=== PATIENT | female | born 1950 | race American Indian/Alaskan Native ===

== ENCOUNTER 2017-01-25 14:35 | Emergency (ER) | payer SELFPAY ==
[~2017-01-25] VITALS: Ht 167.6 cm; Wt 81.6 kg
[2017-01-25 16:37] VITALS: BP 150/81
[2017-01-25] MEDS ORDERED: HYDROmorphone HCL 2 MG/ML VL IV ONE (17:00)
[2017-01-25] MEDS ORDERED: ONDANSETRON HCL 4 MG/2 ML VIAL IV ONE (17:00)
[2017-01-25] MEDS ORDERED: SODIUM CHLORIDE 0.9% 1,000 ML IV ONE (17:00)
[2017-01-25 17:42] LABS: Basophils # (auto) 0 uL; Basophils % (auto) 0.5 % (0.0-2.0); Eosinophils # (auto) 0 uL; Eosinophils % (auto) 0.4 % (0.0-7.0); Hemoglobin 14.3 g/dL (12.2-16.2); Lymphocytes # (auto) 1.1 uL; Lymphocytes % (auto) 13.1 % (10.0-50.0); Mean Corpuscular Hgb Conc. 33.3 g/dL (32.0-36.0); Mean Corpuscular Volume 87.2 fL (80.0-100.0); Mean Platelet Volume 9.3 fL (7.4-10.4); Monocytes # (auto) 0.2 uL; Neutrophils # (auto) 6.9 uL; Platelet Count (auto) 227 10^3/uL (140-450); Red Cell Distribution Width 14.8 % (11.6-16.0); White Blood Cell 8.4 10^3/uL (4.4-10.8)
[2017-01-25 17:53] LABS: BUN/Creatinine Ratio 15.8; Potassium 3.8 mmol/L (3.5-5.1)
[2017-01-25 17:56] LABS: Bilirubin, Total 0.5 mg/dL (0.2-1.0); Total Protein 7.5 g/dL (6.4-8.2)
[2017-01-25 17:57] LABS: INR 0.98 (0.9-1.15); Prothrombin Time 10.6 sec (9.37-12.3)
[2017-01-25] MEDS ORDERED: ONDANSETRON ODT 4 MG TAB PO ONE (19:30)
== END 2017-01-25 19:56 | disposition home or self-care (01) ==
LOC: ER 14:35
DX: S42.211A Unspecified displaced fracture of surgical neck of right humerus, initial encounter for closed fracture (principal); Z88.6 Allergy status to analgesic agent; Z88.1 Allergy status to other antibiotic agents; W01.0XXA Fall on same level from slipping, tripping and stumbling without subsequent striking against object, initial encounter; Y93.89 Activity, other specified; Y99.8 Other external cause status; Y92.098 Other place in other non-institutional residence as the place of occurrence of the external cause
CPT/HCPCS: 36415; 73030; 80053; 85025; 85610; 85730; 96361; 96374; 96375; 99291; J1170; J2405; J7030; Q0162

== ENCOUNTER 2018-08-05 10:14 | Emergency (ER) | payer OTHER ==
[~2018-08-05] VITALS: Ht 167.6 cm; Wt 78.0 kg
[2018-08-05 10:27] VITALS: BP 146/81
[2018-08-05] MEDS ORDERED: KETOROLAC TROMETH 60MG/2ML VIAL IM ONE (12:30)
[2018-08-05] MEDS ORDERED: HYDROcodone-ACET 5/325MG TAB PO ONE (12:45)
[2018-08-05] MEDS ORDERED: traMADol HCL 50 MG TAB PO ONE (13:00)
== END 2018-08-05 13:34 | disposition home or self-care (01) ==
LOC: ER 10:14
DX: M79.652 Pain in left thigh (principal); M13.862 Other specified arthritis, left knee; Z88.6 Allergy status to analgesic agent; Z88.8 Allergy status to other drugs, medicaments and biological substances; Z90.710 Acquired absence of both cervix and uterus
CPT/HCPCS: 73552; 99284; J1885

== ENCOUNTER 2021-08-04 23:44 | Inpatient (IN) | payer OTHER ==
[~2021-08-04] VITALS: Ht 167.6 cm; Wt 105.3 kg
[2021-08-05] VITALS (7 sets, daily range): BP systolic 114–173; BP diastolic 59–90
[2021-08-05 01:37] LABS: Basophils # (auto) 0.1 10 ^3/uL (0-0.2); Basophils % (auto) 1.6 % (0.0-2.0); Eosinophils # (auto) 0.1 10 ^3/uL (0-0.8); Hemoglobin 15.1 g/dL (12.2-16.2); Lymphocytes # (auto) 0.9 10 ^3/uL (0.4-5.4); Lymphocytes % (auto) 12.3 % (10.0-50.0); Mean Corpuscular Hemoglobin 30.3 pg (28.0-32.0); Mean Corpuscular Hgb Conc. 34.2 g/dL (32.0-36.0); Mean Corpuscular Volume 88.7 fL (80.0-100.0); Monocytes # (auto) 0.4 10 ^3/uL (0-1.3); Monocytes % (auto) 4.9 % (0.0-12.0); Neutrophils # (auto) 6.1 10 ^3/uL (1.6-8.6); Neutrophils % (auto) 80.2 % (37.0-80.0); Nucleated Red Blood Cells % 0.2 %; Red Blood Cells 4.97 10^6/uL (4.0-5.20); Red Cell Distribution Width 14.9 % (11.8-14.3); White Blood Cell 7.6 10^3/uL (4.4-10.8)
[2021-08-05 01:57] LABS: Albumin 3.4 g/dL (3.4-5.0); BUN/Creatinine Ratio 19.2; Calcium 8.8 mg/dL (8.5-10.1); Potassium 4.3 mmol/L (3.5-5.1)
[2021-08-05 02:13] LABS: Bilirubin, Total 0.3 mg/dL (0.2-1.0); Total Protein 7.1 g/dL (6.4-8.2)
[2021-08-05] MEDS ORDERED: ASPirin 81 mg TAB PO ONE (04:00)
[2021-08-05] MEDS ORDERED: ENOXAPARIN SOD 80 MG/0.8ML SYRINGE SC ONE (04:30)
[2021-08-05] MEDS ORDERED: MORPHINE SULFATE INJECTION 2 MG/ML SYRG IV PRN ×2 (07:00→18:15)
[2021-08-05] MEDS ORDERED: ONDANSETRON HCL 4 MG/2 ML VIAL IV PRN (07:00)
[2021-08-05] MEDS ORDERED: NITROGLYCERIN 0.4 MG SL TAB SL PRN (07:00)
[2021-08-05] MEDS: SODIUM CHLORIDE 0.9% 1,000 ML IV SCH ×2 (09:33→23:39)
[2021-08-05] MEDS ORDERED: ENOXAPARIN SOD 40 MG/0.4 ML SYRINGE SC SCH (10:00)
[2021-08-05] MEDS: PANTOPRAZOLE 40 MG/10 ML VIAL INJ IV SCH (10:03)
[2021-08-05] MEDS ORDERED: ANGIOMAX 250 MG VIAL IV ONE ×2 (13:14→14:27)
[2021-08-05] MEDS ORDERED: VERAPAMIL 2.5MG/ML INJ 2ML VIAL IV ONE (13:15)
[2021-08-05] MEDS ORDERED: SODIUM CHL 0.9% 50 ML ONE ×2 (13:15→14:27)
[2021-08-05] MEDS ORDERED: fentaNYL CITRATE 100 MCG/2 ML VL ONE (13:15)
[2021-08-05] MEDS ORDERED: MIDAZOLAM HCL 2MG/2ML 2ml VIAL (1mg/ml) ONE (13:15)
[2021-08-05] MEDS ORDERED: LIDOCAINE 2%HCL (LOCAL ANESTH.) INJ 20ML MDV ONE (13:16)
[2021-08-05] MEDS ORDERED: IODIXANOL 320MG/ML 100ML BTL IV ONE ×3 (13:16→14:38)
[2021-08-05] MEDS ORDERED: diphenhdrAMINE HCL 50 MG/1 ML VL ONE (13:49)
[2021-08-05] MEDS ORDERED: ASPirin 325 MG TAB ONE (14:06)
[2021-08-05] MEDS ORDERED: TICAGRELOR 90 MG TAB ONE (14:06)
[2021-08-05] MEDS ORDERED: ONDANSETRON HCL 4 MG/2 ML VIAL ONE (14:13)
[2021-08-05] MEDS ORDERED: niCARdipine 25 MG/10 ML VIAL IV ONE (14:17)
[2021-08-05] MEDS ORDERED: HYDROmorphone HCL 2 MG/ML VL ONE (14:31)
[2021-08-05] MEDS ORDERED: SODIUM CHLORIDE 0.9% 250 ML IV ONE (15:00)
[2021-08-05 18:09] LABS: INR 1.28 (0.9-1.15)
[2021-08-05] MEDS ORDERED: ACETAMINOPHEN 325 MG TAB PO PRN (18:15)
[2021-08-05] MEDS ORDERED: ATORVASTATIN 20 MG TAB PO SCH ×2 (22:00)
[2021-08-05] MEDS: TICAGRELOR 90 MG TAB PO SCH (22:14)
[2021-08-05] MEDS: LORazepam 2MG/ML-1ML VIAL IV PRN (22:15)
[2021-08-05] MEDS: CARVEDILOL 3.125 MG TAB PO SCH (22:32)
[2021-08-05] MEDS: ENALAPRIL MALEATE 10 MG TAB PO SCH (22:32)
[2021-08-05 23:02] LABS: Urine Bacteria NONE SEEN /hpf (None Seen); Urine Blood TRACE /uL (Negative); Urine Mucus FEW (None Seen); Urine WBC 1 /hpf (0 - 5)
[2021-08-05 23:08] LABS: Urine Specific Gravity > 1.050 (1.001-1.035)
[2021-08-06 05:02] VITALS: BP 98/44
[2021-08-06] MEDS: LORazepam 2MG/ML-1ML VIAL IV PRN (05:48)
[2021-08-06 05:59] LABS: Basophils # (auto) 0.1 10 ^3/uL (0-0.2); Basophils % (auto) 1.2 % (0.0-2.0); Eosinophils # (auto) 0.1 10 ^3/uL (0-0.8); Eosinophils % (auto) 2.4 % (0.0-7.0); Hematocrit 37.7 % (36.0-46.0); Hemoglobin 12.8 g/dL (12.2-16.2); Lymphocytes # (auto) 1.4 10 ^3/uL (0.4-5.4); Lymphocytes % (auto) 29.1 % (10.0-50.0); Mean Corpuscular Hemoglobin 29.9 pg (28.0-32.0); Mean Corpuscular Hgb Conc. 33.9 g/dL (32.0-36.0); Mean Corpuscular Volume 88.3 fL (80.0-100.0); Monocytes # (auto) 0.4 10 ^3/uL (0-1.3); Monocytes % (auto) 8.3 % (0.0-12.0); Neutrophils # (auto) 2.9 10 ^3/uL (1.6-8.6); Red Blood Cells 4.27 10^6/uL (4.0-5.20); Red Cell Distribution Width 14.9 % (11.8-14.3); White Blood Cell 4.9 10^3/uL (4.4-10.8)
[2021-08-06 06:23] LABS: BUN/Creatinine Ratio 21.1; Calcium 8.5 mg/dL (8.5-10.1); Potassium 4.2 mmol/L (3.5-5.1)
[2021-08-06] MEDS: PANTOPRAZOLE 40 MG/10 ML VIAL INJ IV SCH (09:29)
[2021-08-06] MEDS: TICAGRELOR 90 MG TAB PO SCH (09:30)
[2021-08-06] MEDS: CARVEDILOL 3.125 MG TAB PO SCH (09:30)
[2021-08-06] MEDS: ENALAPRIL MALEATE 10 MG TAB PO SCH (09:31)
[2021-08-06] MEDS ORDERED: ASPirin 81 mg TAB PO SCH (10:00)
[2021-08-06 13:00] VITALS: BP 119/63
[2021-08-06 17:00] VITALS: BP 140/70
== END 2021-08-06 17:45 | disposition home health service (06) | DRG 247 ==
LOC: ER 23:44 → EDBD 23:44 → EDUNIT# 23:44 → TELE 08-05 06:55 → TELE-WESTW 08-05 11:42
PROVIDERS: ADMIT Nurse Practitioner; ATTEND Internal Medicine
PROC: 4A023N7 Measurement of Cardiac Sampling and Pressure, Left Heart, Percutaneous Approach (ICD-10-PCS; principal; 2021-08-05)
PROC: 027036Z Dilation of Coronary Artery, One Artery with Three Drug-eluting Intraluminal Devices, Percutaneous Approach (ICD-10-PCS; 2021-08-05)
PROC: B211YZZ Fluoroscopy of Multiple Coronary Arteries using Other Contrast (ICD-10-PCS; 2021-08-05)
PROC: 3E073GC Introduction of Other Therapeutic Substance into Coronary Artery, Percutaneous Approach (ICD-10-PCS; 2021-08-05)
DX: I21.4 Non-ST elevation (NSTEMI) myocardial infarction (principal); E66.01 Morbid (severe) obesity due to excess calories; I25.110 Atherosclerotic heart disease of native coronary artery with unstable angina pectoris; R00.1 Bradycardia, unspecified; Z20.822 Contact with and (suspected) exposure to COVID-19; Z68.37 Body mass index [BMI] 37.0-37.9, adult; Z72.0 Tobacco use; Z90.710 Acquired absence of both cervix and uterus; Z88.5 Allergy status to narcotic agent; Z82.49 Family history of ischemic heart disease and other diseases of the circulatory system
CPT/HCPCS: 36415; 71045; 71046; 80048; 80053; 81001; 83880; 84484; 85025; 85610; 87426; 92928; 93005; 93306; 93458; 96361; 96372; 96374; C9113; G0378; J2250; J2405; Q9967

== ENCOUNTER 2022-01-30 16:20 | Observation (INO) | payer OTHER ==
[~2022-01-30] VITALS: Ht 167.6 cm; Wt 91.2 kg
[2022-01-30] MEDS ORDERED: SODIUM CHLORIDE 0.9% 1,000 ML IV ONE ×3 (17:45→22:45)
[2022-01-30] MEDS ORDERED: ONDANSETRON HCL 4 MG/2 ML VIAL IV ONE (17:45)
[2022-01-30 18:30] LABS: Basophils # (auto) 0 10 ^3/uL (0-0.2); Basophils % (auto) 0.3 % (0.0-2.0); Eosinophils # (auto) 0.1 10 ^3/uL (0-0.8); Eosinophils % (auto) 0.6 % (0.0-7.0); Hematocrit 50.2 % (36.0-46.0); Hemoglobin 17.2 g/dL (12.2-16.2); Lymphocytes # (auto) 0.4 10 ^3/uL (0.4-5.4); Mean Corpuscular Hemoglobin 30.7 pg (28.0-32.0); Mean Corpuscular Hgb Conc. 34.3 g/dL (32.0-36.0); Mean Corpuscular Volume 89.3 fL (80.0-100.0); Monocytes # (auto) 0.4 10 ^3/uL (0-1.3); Monocytes % (auto) 3.8 % (0.0-12.0); Neutrophils # (auto) 8.7 10 ^3/uL (1.6-8.6); Neutrophils % (auto) 91.3 % (37.0-80.0); Nucleated Red Blood Cells % 0.1 %; Red Blood Cells 5.62 10^6/uL (4.0-5.20); Red Cell Distribution Width 14.4 % (11.8-14.3); White Blood Cell 9.5 10^3/uL (4.4-10.8)
[2022-01-30 18:44] LABS: Alanine Aminotransferase 44 U/L (13-56); Albumin 4.3 g/dL (3.4-5.0); Anion Gap 10 (5-15); Aspartate Aminotransferase 30 U/L (15-37); BUN/Creatinine Ratio 12.1; Blood Urea Nitrogen 23 mg/dL (7-18); Calcium 9.8 mg/dL (8.5-10.1); Carbon Dioxide 20 mmol/L (21-32); Chloride 110 mmol/L (98-107); GFR African American 34 mL/min; GFR Non-African American 28 mL/min; Glucose 139 mg/dL (74-106); Potassium 5.4 mmol/L (3.5-5.1); Sodium 140 mmol/L (136-145)
[2022-01-30 18:47] LABS: Alkaline Phosphatase 119 U/L (45-117); Bilirubin, Total 0.7 mg/dL (0.2-1.0); Total Protein 8.7 g/dL (6.4-8.2)
[2022-01-30 18:58] LABS: Lactic Acid w/Reflex 2.5 mmol/L (0.4-2.0)
[2022-01-30 21:01] LABS: Urine Bacteria FEW /hpf (None Seen); Urine Blood 2+ /uL (Negative); Urine Hyaline Cast FEW /lpf (0 - 2); Urine Mucus FEW (None Seen); Urine Specific Gravity 1.016 (1.001-1.035); Urine WBC 95 /hpf (0 - 5); Urine WBC Clumps PRESENT /hpf (None Seen)
[2022-01-30] MEDS ORDERED: PIPERACILLIN-TAZO 4.5GM 100 ML IV ONE (21:45)
[2022-01-31] MEDS ORDERED: ONDANSETRON HCL 4 MG/2 ML VIAL IV PRN (01:15)
[2022-01-31] MEDS ORDERED: NITROGLYCERIN 0.4 MG SL TAB SL PRN (01:15)
[2022-01-31] MEDS ORDERED: DOCUSATE SOD 100 MG CAP PO PRN (01:15)
[2022-01-31] MEDS: SODIUM CHLORIDE 0.9% 1,000 ML IV SCH ×2 (02:09→10:30)
[2022-01-31 05:44] LABS: Basophils # (auto) 0 10 ^3/uL (0-0.2); Basophils % (auto) 0.2 % (0.0-2.0); Eosinophils # (auto) 0 10 ^3/uL (0-0.8); Eosinophils % (auto) 0.1 % (0.0-7.0); Hematocrit 34.6 % (36.0-46.0); Lymphocytes # (auto) 0.4 10 ^3/uL (0.4-5.4); Lymphocytes % (auto) 5.4 % (10.0-50.0); Mean Corpuscular Hemoglobin 30.6 pg (28.0-32.0); Mean Corpuscular Hgb Conc. 34.6 g/dL (32.0-36.0); Mean Corpuscular Volume 88.4 fL (80.0-100.0); Monocytes # (auto) 0.6 10 ^3/uL (0-1.3); Neutrophils # (auto) 6.1 10 ^3/uL (1.6-8.6); Neutrophils % (auto) 85.3 % (37.0-80.0); Nucleated Red Blood Cells % 0.1 %; Red Blood Cells 3.92 10^6/uL (4.0-5.20); Red Cell Distribution Width 14.4 % (11.8-14.3); White Blood Cell 7.1 10^3/uL (4.4-10.8)
[2022-01-31] MEDS ORDERED: PIPERACILLIN-TAZOB 2.25GM 50 ML IV SCH (06:00)
[2022-01-31 07:53] LABS: Calcium 7.6 mg/dL (8.5-10.1); Potassium 4.4 mmol/L (3.5-5.1)
[2022-01-31 07:55] LABS: BUN/Creatinine Ratio 17.9
[2022-01-31 08:30] VITALS: BP 112/74
[2022-01-31 10:00] VITALS: BP 110/76
[2022-01-31] MEDS ORDERED: ASPirin-EC 81 mg tab PO SCH (10:00)
[2022-01-31] MEDS ORDERED: TICAGRELOR 90 MG TAB PO SCH (10:00)
[2022-01-31] MEDS ORDERED: TICA90TA PO (10:57)
[2022-01-31] MEDS ORDERED: ASPI-325 PO (10:57)
[2022-01-31] MEDS ORDERED: CARV3.1240 PO (10:57)
[2022-01-31] MEDS ORDERED: ATOR-47 PO (10:57)
[2022-01-31] MEDS ORDERED: ENAL10TA13 PO (10:57)
[2022-01-31] MEDS ORDERED: METR500T PO ×2 (10:58→11:05)
[2022-01-31] MEDS ORDERED: CIPR-173 PO (11:05)
[2022-01-31 12:18] VITALS: BP 110/76
[2022-01-31 12:43] VITALS: BP_SYST 115; BP_SYST 124; BP_DIAS 57; BP_DIAS 70
[2022-01-31] MEDS ORDERED: ATORVASTATIN 20 MG TAB PO SCH (22:00)
== END 2022-01-31 14:00 | disposition home health service (06) ==
LOC: EDBD 16:20 → ER 16:20 → OVERFLOW 01-31 01:05 → CENTRAL 01-31 08:43
PROVIDERS: ADMIT Hospitalist; ATTEND Hospitalist
DX: K52.9 Noninfective gastroenteritis and colitis, unspecified (principal); Z20.822 Contact with and (suspected) exposure to COVID-19; N39.0 Urinary tract infection, site not specified; N17.9 Acute kidney failure, unspecified; I25.10 Atherosclerotic heart disease of native coronary artery without angina pectoris; I10 Essential (primary) hypertension; E78.5 Hyperlipidemia, unspecified; I25.2 Old myocardial infarction; J44.9 Chronic obstructive pulmonary disease, unspecified; F17.200 Nicotine dependence, unspecified, uncomplicated; Z90.710 Acquired absence of both cervix and uterus; Z95.5 Presence of coronary angioplasty implant and graft; Z79.899 Other long term (current) drug therapy
CPT/HCPCS: 36415; 71045; 74176; 80048; 80053; 81001; 83605; 84484; 85025; 87040; 87086; 87426; 93005; 96361; 96365; 96366; 96375; 99285; G0378; J2405; J2543

== ENCOUNTER 2023-01-03 12:07 | Emergency (ER) | payer OTHER ==
[~2023-01-03] VITALS: Ht 162.6 cm; Wt 75.0 kg
[~2023-01-03 12:07] MED LIST: ASPI-325 PO; ATOR-47 PO; CARV3.1240 PO; CIPR-173 PO; METR500T PO; TICA90TA PO
[2023-01-03 13:42] LABS: Albumin 3.5 g/dL (3.4-5.0); Basophils # (auto) 0 10 ^3/uL (0-0.2); Basophils % (auto) 0.4 % (0.0-2.0); Calcium 8.7 mg/dL (8.5-10.1); Eosinophils # (auto) 0.1 10 ^3/uL (0-0.8); Eosinophils % (auto) 2.4 % (0.0-7.0); Hematocrit 41.2 % (36.0-46.0); Hemoglobin 13.9 g/dL (12.2-16.2); Lymphocytes # (auto) 1.7 10 ^3/uL (0.4-5.4); Lymphocytes % (auto) 31.2 % (10.0-50.0); Mean Corpuscular Hemoglobin 29.6 pg (28.0-32.0); Mean Corpuscular Hgb Conc. 33.7 g/dL (32.0-36.0); Mean Corpuscular Volume 87.9 fL (80.0-100.0); Monocytes # (auto) 0.3 10 ^3/uL (0-1.3); Monocytes % (auto) 6.2 % (0.0-12.0); Neutrophils # (auto) 3.3 10 ^3/uL (1.6-8.6); Neutrophils % (auto) 59.8 % (37.0-80.0); Nucleated Red Blood Cells % 0.2 %; Potassium 4.3 mmol/L (3.5-5.1); Red Blood Cells 4.69 10^6/uL (4.0-5.20); Red Cell Distribution Width 14.1 % (11.8-14.3); White Blood Cell 5.4 10^3/uL (4.4-10.8)
[2023-01-03 13:46] LABS: BUN/Creatinine Ratio 18.5 (10.0-20.0); Bilirubin, Total 0.5 mg/dL (0.2-1.0); Total Protein 6.8 g/dL (6.4-8.2)
[2023-01-03] MEDS ORDERED: LEVO-28 PO (14:30)
[2023-01-03 14:47] LABS: Urine Bacteria FEW /hpf (None Seen); Urine Blood Negative /uL (Negative); Urine Mucus FEW (None Seen); Urine Specific Gravity 1.023 (1.001-1.035); Urine WBC 9 /hpf (0 - 5)
[2023-01-03 15:27] VITALS: BP 103/52
== END 2023-01-03 15:33 | disposition home or self-care (01) ==
LOC: EDBD 12:07 → ER 12:07
DX: J40 Bronchitis, not specified as acute or chronic (principal); N39.0 Urinary tract infection, site not specified; I25.10 Atherosclerotic heart disease of native coronary artery without angina pectoris; J44.9 Chronic obstructive pulmonary disease, unspecified; Z90.49 Acquired absence of other specified parts of digestive tract; Z90.710 Acquired absence of both cervix and uterus; Z98.890 Other specified postprocedural states
CPT/HCPCS: 36415; 71045; 80053; 81001; 83880; 84484; 85025; 85379; 93005

== ENCOUNTER 2023-02-15 13:51 | Emergency (ER) | payer OTHER ==
[~2023-02-15] VITALS: Ht 167.6 cm; Wt 85.0 kg
[~2023-02-15 13:51] MED LIST changes: +LEVO-28 PO
[2023-02-15 14:30] LABS: Urine Bacteria FEW /hpf (None Seen); Urine Blood Negative /uL (Negative); Urine Hyaline Cast FEW /lpf (0 - 2); Urine Mucus FEW (None Seen); Urine Specific Gravity 1.023 (1.001-1.035); Urine WBC 5 /hpf (0 - 5)
[2023-02-15 15:03] LABS: Basophils # (auto) 0.1 10 ^3/uL (0-0.2); Basophils % (auto) 1.1 % (0.0-2.0); Eosinophils # (auto) 0.1 10 ^3/uL (0-0.8); Hematocrit 40.1 % (36.0-46.0); Hemoglobin 13.7 g/dL (12.2-16.2); Lymphocytes # (auto) 1.5 10 ^3/uL (0.4-5.4); Mean Corpuscular Hemoglobin 29.8 pg (28.0-32.0); Mean Corpuscular Hgb Conc. 34.2 g/dL (32.0-36.0); Mean Corpuscular Volume 87.2 fL (80.0-100.0); Monocytes # (auto) 0.3 10 ^3/uL (0-1.3); Monocytes % (auto) 6.5 % (0.0-12.0); Neutrophils # (auto) 2.7 10 ^3/uL (1.6-8.6); Neutrophils % (auto) 57.4 % (37.0-80.0); Nucleated Red Blood Cells % 0.1 %; Red Blood Cells 4.59 10^6/uL (4.0-5.20); Red Cell Distribution Width 14.6 % (11.8-14.3); White Blood Cell 4.8 10^3/uL (4.4-10.8)
[2023-02-15 15:09] LABS: Partial Thromboplastin Time 29.9 sec (24.6-33.4)
[2023-02-15 15:16] LABS: Potassium 4.1 mmol/L (3.5-5.1)
[2023-02-15 15:23] LABS: Albumin 3.8 g/dL (3.4-5.0); BUN/Creatinine Ratio 19.4 (10.0-20.0); Bilirubin, Total 0.6 mg/dL (0.2-1.0); Total Protein 6.5 g/dL (6.4-8.2)
[2023-02-15 18:59] VITALS: BP 120/61
== END 2023-02-15 21:25 | disposition left against medical advice (07) ==
LOC: ER 13:51
DX: R07.89 Other chest pain (principal); Z53.21 Procedure and treatment not carried out due to patient leaving prior to being seen by health care provider
CPT/HCPCS: 36415; 71045; 80053; 81001; 84484; 85025; 85610; 85730; 93005

== ENCOUNTER 2023-05-31 15:46 | Emergency (ER) | payer OTHER ==
[~2023-05-31] VITALS: Ht 167.6 cm; Wt 84.3 kg
[~2023-05-31 15:46] MED LIST changes: -LEVO-28 PO; +LEVO500T91 PO
[2023-05-31] MEDS ORDERED: ALBUTEROL SULF 2.5 MG/0.5ML(0.5%) NEB SOLN NEB ONE (19:00)
[2023-05-31] MEDS ORDERED: IPRATROPIUM BROM 0.5 MG/2.5ML INH SOL NEB ONE (19:00)
[2023-05-31] MEDS ORDERED: DexAMETHasone SOD PHOS 10MG/1ML VIAL INJ IM ONE (19:00)
[2023-05-31] MEDS ORDERED: PRED20TA2 PO (19:33)
[2023-05-31] MEDS ORDERED: ALBUAER3 IN (19:33)
[2023-05-31 19:48] VITALS: BP 126/73; PULSE 63; RESP 18; TEMP 97.7; O2SAT 96
[2023-05-31] MEDS ORDERED: AUG875T PO (21:29)
== END 2023-05-31 22:07 | disposition home or self-care (01) ==
LOC: ER 15:46
DX: J40 Bronchitis, not specified as acute or chronic (principal); F17.210 Nicotine dependence, cigarettes, uncomplicated; Z90.710 Acquired absence of both cervix and uterus; I25.2 Old myocardial infarction
CPT/HCPCS: 71046; 93005; 94640; 96372; 99283; J1100; J7644

== ENCOUNTER 2023-06-04 13:32 | Emergency (ER) | payer OTHER ==
[~2023-06-04] VITALS: Ht 167.6 cm; Wt 83.0 kg
[~2023-06-04 13:32] MED LIST changes: +ALBUAER3 IN; +AUG875T PO; +PRED20TA2 PO
[2023-06-04 14:17] LABS: Basophils # (auto) 0.1 10 ^3/uL (0-0.2); Basophils % (auto) 1.3 % (0.0-2.0); Eosinophils # (auto) 0.1 10 ^3/uL (0-0.8); Eosinophils % (auto) 1.3 % (0.0-7.0); Hematocrit 40.8 % (36.0-46.0); Hemoglobin 13.7 g/dL (12.2-16.2); Lymphocytes # (auto) 2.4 10 ^3/uL (0.4-5.4); Lymphocytes % (auto) 34.8 % (10.0-50.0); Mean Corpuscular Hemoglobin 29.9 pg (28.0-32.0); Mean Corpuscular Hgb Conc. 33.6 g/dL (32.0-36.0); Mean Corpuscular Volume 88.9 fL (80.0-100.0); Monocytes # (auto) 0.4 10 ^3/uL (0-1.3); Monocytes % (auto) 6.2 % (0.0-12.0); Neutrophils # (auto) 3.8 10 ^3/uL (1.6-8.6); Neutrophils % (auto) 56.4 % (37.0-80.0); Nucleated Red Blood Cells % 0.1 %; Red Blood Cells 4.59 10^6/uL (4.0-5.20); Red Cell Distribution Width 14.7 % (11.8-14.3); White Blood Cell 6.8 10^3/uL (4.4-10.8)
[2023-06-04 14:29] LABS: Alanine Aminotransferase 14 U/L (7-40); Albumin 4.1 g/dL (3.2-4.8); Alkaline Phosphatase 74 U/L (46-116); Anion Gap 7.2 (5-15); Aspartate Aminotransferase < 8 U/L (13-40); BUN/Creatinine Ratio 14.2 (10.0-20.0); Bilirubin, Total 0.6 mg/dL (0.2-1.0); Blood Urea Nitrogen 17 mg/dL (9-23); Carbon Dioxide 23.8 mmol/L (20-30); Chloride 108 mmol/L (98-107); Glucose 110 mg/dL (74-106); Potassium 3.9 mmol/L (3.5-5.1); Sodium 139 mmol/L (136-145); Total Protein 6.2 g/dL (5.7-8.2)
[2023-06-04 15:17] LABS: Urine Bacteria NONE SEEN /hpf (None Seen); Urine Blood Negative /uL (Negative); Urine Clarity HAZY (Clear); Urine Color Yellow (Yellow); Urine Protein, UAD Negative (Negative); Urine Specific Gravity 1.021 (1.001-1.035); Urine WBC 1 /hpf (0 - 5); Urine pH 5.5 (5.0-8.0)
[2023-06-04 16:01] VITALS: BP 131/70; PULSE 63; RESP 18; TEMP 97.8; O2SAT 96
== END 2023-06-04 16:00 | disposition home or self-care (01) ==
LOC: ER 13:32
DX: R42 Dizziness and giddiness (principal); F17.210 Nicotine dependence, cigarettes, uncomplicated; Z90.710 Acquired absence of both cervix and uterus; Z98.890 Other specified postprocedural states
CPT/HCPCS: 36415; 70450; 71046; 80053; 81001; 82962; 83880; 84484; 85025; 85379; 93005

== ENCOUNTER 2024-06-30 22:08 | Inpatient (IN) | payer MEDICAID, OTHER ==
[~2024-06-30] VITALS: Ht 162.6 cm; Wt 96.2 kg
[~2024-06-30 22:08] MED LIST changes: -AUG875T PO; +AZIT-43 PO; -CIPR-173 PO; +EZET-10 PO; +GUAI200T6 PO; -LEVO500T91 PO; +METH4PAK PO; -METR500T PO; -PRED20TA2 PO; +RANO500T3 PO; +TICA1TAB PO; +ZOFR4T PO
[2024-06-30 22:42] LABS: Basophils # (auto) 0.1 10 ^3/uL (0-0.2); Eosinophils # (auto) 0.2 10 ^3/uL (0-0.8); Eosinophils % (auto) 3.5 % (0.0-7.0); Hematocrit 41.8 % (36.0-46.0); Hemoglobin 14.6 g/dL (12.2-16.2); Lymphocytes # (auto) 2.2 10 ^3/uL (0.4-5.4); Lymphocytes % (auto) 42.1 % (10.0-50.0); Mean Corpuscular Hemoglobin 31.5 pg (28.0-32.0); Monocytes # (auto) 0.4 10 ^3/uL (0-1.3); Monocytes % (auto) 8.1 % (0.0-12.0); Neutrophils # (auto) 2.3 10 ^3/uL (1.6-8.6); Neutrophils % (auto) 44.3 % (37.0-80.0); Nucleated Red Blood Cells % 0.2 %; Platelet Count (auto) 204 10^3/uL (140-450); Red Blood Cells 4.64 10^6/uL (4.0-5.20); Red Cell Distribution Width 14.2 % (11.8-14.3); White Blood Cell 5.1 10^3/uL (4.4-10.8)
[2024-06-30 22:53] LABS: Alanine Aminotransferase 16 U/L (7-40); Albumin 4.3 g/dL (3.2-4.8); Alkaline Phosphatase 91 U/L (46-116); Anion Gap 9 (5-15); Aspartate Aminotransferase 12 U/L (13-40); BUN/Creatinine Ratio 12.3 (10.0-20.0); Blood Urea Nitrogen 13 mg/dL (9-23); Calcium 9.4 mg/dL (8.7-10.4); Carbon Dioxide 21 mmol/L (20-30); Chloride 110 mmol/L (98-107); Glucose 125 mg/dL (74-106); Sodium 140 mmol/L (136-145)
[2024-06-30 22:54] LABS: Bilirubin, Total 0.4 mg/dL (0.2-1.0); Total Protein 6.6 g/dL (5.7-8.2)
[2024-06-30 22:57] LABS: Partial Thromboplastin Time 25.7 SEC (24.5-34.5); Prothrombin Time 10.6 sec (9.3-11.8)
[2024-07-01] VITALS (7 sets, daily range): BP systolic 108–159; BP diastolic 49–101; PULSE 61–69; RESP 14–20; TEMP 98.1–98.9; O2SAT 92–97
[2024-07-01] MEDS ORDERED: NITROGLYCERIN 0.4 MG SL TAB SL PRN (04:00)
[2024-07-01] MEDS ORDERED: MORPHINE SULFATE INJ 2 MG/ml SYRG IV PRN (04:00)
[2024-07-01] MEDS ORDERED: ACETAMINOPHEN 325 MG TAB PO PRN (04:00)
[2024-07-01] MEDS ORDERED: ONDANSETRON HCL 4 MG/2 ML VIAL IV PRN (04:00)
[2024-07-01] MEDS ORDERED: ALBUTEROL SULF 2.5 MG/0.5ML(0.5%) NEB SOLN NEB PRN (04:00)
[2024-07-01] MEDS ORDERED: TICAGRELOR 90 MG TAB PO SCH (10:00)
[2024-07-01] MEDS ORDERED: ASPirin 81 mg TAB PO SCH (10:00)
[2024-07-01] MEDS: ATORVASTATIN 20 MG TAB PO SCH (10:45)
[2024-07-01] MEDS: TICAGRELOR 90 MG TAB PO SCH (11:02)
[2024-07-01] MEDS: RANOLAZINE ER 500 MG TAB PO SCH (11:02)
[2024-07-01] MEDS: CARVEDILOL 3.125 MG TAB PO SCH (11:03)
[2024-07-01] MEDS ORDERED: ATORVASTATIN 20 MG TAB PO SCH (22:00)
[2024-07-02] VITALS (7 sets, daily range): BP systolic 105–150; BP diastolic 58–82; PULSE 5–65; RESP 16–18; TEMP 97.7–98.5; O2SAT 95–98
[2024-07-02 01:14] LABS: Urine Bacteria None Seen /hpf (None Seen)
[2024-07-02 01:22] LABS: Urine Blood Negative /uL (Negative); Urine Clarity Clear (Clear); Urine Color Light-Yellow (Yellow); Urine Protein, UAD Negative (Negative); Urine Urobilinogen Normal (Negative); Urine WBC 2 /hpf (0 - 5)
[2024-07-02 07:57] LABS: Basophils # (auto) 0.1 10 ^3/uL (0-0.2); Basophils % (auto) 1.2 % (0.0-2.0); Eosinophils # (auto) 0.2 10 ^3/uL (0-0.8); Eosinophils % (auto) 4.1 % (0.0-7.0); Hematocrit 40.4 % (36.0-46.0); Hemoglobin 14.2 g/dL (12.2-16.2); Lymphocytes # (auto) 1.6 10 ^3/uL (0.4-5.4); Lymphocytes % (auto) 37.5 % (10.0-50.0); Mean Corpuscular Hemoglobin 31.4 pg (28.0-32.0); Mean Corpuscular Hgb Conc. 35.2 g/dL (32.0-36.0); Mean Corpuscular Volume 89.1 fL (80.0-100.0); Monocytes # (auto) 0.3 10 ^3/uL (0-1.3); Monocytes % (auto) 7.8 % (0.0-12.0); Neutrophils # (auto) 2.1 10 ^3/uL (1.6-8.6); Neutrophils % (auto) 49.4 % (37.0-80.0); Nucleated Red Blood Cells % 0.3 %; Platelet Count (auto) 157 10^3/uL (140-450); Red Blood Cells 4.54 10^6/uL (4.0-5.20); Red Cell Distribution Width 14.3 % (11.8-14.3); White Blood Cell 4.3 10^3/uL (4.4-10.8)
[2024-07-02 08:20] LABS: Alanine Aminotransferase 17 U/L (7-40); Alkaline Phosphatase 83 U/L (46-116); Anion Gap 9 (5-15); BUN/Creatinine Ratio 16.5 (10.0-20.0); Blood Urea Nitrogen 18 mg/dL (9-23); Calcium 9.7 mg/dL (8.7-10.4); Carbon Dioxide 23 mmol/L (20-30); Chloride 106 mmol/L (98-107); Glucose 80 mg/dL (74-106); Sodium 138 mmol/L (136-145)
[2024-07-02 08:21] LABS: Aspartate Aminotransferase 8 U/L (13-40)
[2024-07-02 08:22] LABS: Bilirubin, Total 0.7 mg/dL (0.2-1.0); Total Protein 6.2 g/dL (5.7-8.2)
[2024-07-02] MEDS: PANTOPRAZOLE 40 MG/10 ML VIAL INJ IV SCH (09:35)
[2024-07-02] MEDS: NICOTINE 21MG/24 HR TOPICAL PATCH TD SCH (09:36)
[2024-07-02] MEDS: ENOXAPARIN SOD 40 MG/0.4 ML SYRINGE SC SCH (09:36)
== END 2024-07-02 19:05 | disposition home or self-care (01) | DRG 694 ==
LOC: EDBD 22:08 → ER 22:08 → TELE 07-01 03:58 → TELE-WESTW 07-01 09:04 → WEST WING 07-01 14:18
PROVIDERS: ADMIT Internal Medicine; ATTEND Internal Medicine
DX: N20.0 Calculus of kidney (principal); N18.9 Chronic kidney disease, unspecified; I12.9 Hypertensive chronic kidney disease with stage 1 through stage 4 chronic kidney disease, or unspecified chronic kidney disease; I25.10 Atherosclerotic heart disease of native coronary artery without angina pectoris; E78.5 Hyperlipidemia, unspecified; F17.210 Nicotine dependence, cigarettes, uncomplicated; R10.11 Right upper quadrant pain; E66.9 Obesity, unspecified; K57.30 Diverticulosis of large intestine without perforation or abscess without bleeding; I25.2 Old myocardial infarction; Z79.02 Long term (current) use of antithrombotics/antiplatelets; Z79.82 Long term (current) use of aspirin; Z79.899 Other long term (current) drug therapy; Z88.6 Allergy status to analgesic agent; Z88.5 Allergy status to narcotic agent; Z88.1 Allergy status to other antibiotic agents; Z95.5 Presence of coronary angioplasty implant and graft; Z90.710 Acquired absence of both cervix and uterus; Z91.199 Patient's noncompliance with other medical treatment and regimen due to unspecified reason; Z86.73 Personal history of transient ischemic attack (TIA), and cerebral infarction without residual deficits; Z90.49 Acquired absence of other specified parts of digestive tract; Z80.3 Family history of malignant neoplasm of breast; Z82.3 Family history of stroke; Z82.49 Family history of ischemic heart disease and other diseases of the circulatory system; Z68.31 Body mass index [BMI] 31.0-31.9, adult
CPT/HCPCS: 36415; 71045; 74176; 80053; 81001; 83690; 83735; 83880; 84484; 85025; 85610; 85730; 93005; 93306; G0378; J2470

== ENCOUNTER 2025-02-09 22:36 | Emergency (ER) | payer MEDICAID, OTHER ==
[~2025-02-09] VITALS: Ht 167.6 cm; Wt 100.0 kg
[2025-02-09 23:05] VITALS: TEMP 97.8
--- NOTE | 2025-02-09 23:18 | ED.PDOC ---
History of Present Illness HPI Comments 74 y/o F, with a history of CAD s/p PCI/stents, HLD, HTN, UT, TIA, diverticulosis, cholecystectomy, , and hysterectomy, is BIBA for c/o left-arm numbness, nausea, dry-heaving, and congestion, today. Per EMS report, patient called, for sudden and unprovoked onset of symptoms that began around 2150, this evening. She reports arm numbness lasting 20 minutes in duration but was concern, due to history of having it when she had an UT in the past. She was noted to have been found hypertensive on scene and tender to her epigastric and RUQ area upon palpation. Numbness was also reported to be reproducible with palpation to her left-upper back area. Patient denies any chest or abdominal pain, vomiting, diarrhea, fever, chills, or other associated symptoms at this time. Time Seen by MD: 23:00 Primary Care Provider: ? Reviewed Notes: Nurses Notes, Drencher Notes, Medications, Allergies Allergies: Coded Allergies: Cephalexin (Verified Allergy, Unknown, 01/25/17) Codeine (Verified Allergy, Unknown, 01/25/17) Hydrocodone (Verified Allergy, Unknown, 02/09/25) Ibuprofen (Verified Allergy, Unknown, 01/25/17) Home Meds Active Scripts Ondansetron Odt 4MG Tab (ZOFRAN PO) 4 Mg Tb, 4 MG PO Q8HP PRN for 10 Days, #30 TAB ODT TAB-DISSOLVE IN MOUTH, THEN SWALLOW Prov:AUSTINNATALIIAROMI Holden DO 01/07/24 Guaifenesin (Guaifenesin) 200 Mg Tab, 200 MG PO BID PRN for 10 Days, #20 TAB Prov:GEOVANNAROMI Holden DO 01/07/24 Azithromycin (Azithromycin) 250 Mg Tab, 250 MG PO DAILY MDD 500 for 5 Days, #6 TAB 0 Refills 2 TABLETS ORALLY ON DAY ONE, THEN 1 TABLET ORALLY DAILY FOR 4 DAYS Prov:GEOVANNAORMI Holden DO 01/07/24 Methylprednisolone (Medrol Dosepak) 4 Mg Magdal[place], 4 MG PO UD, #21 TAB UAD Prov:BRAD NEGRON MD 01/04/24 Albuterol Sulfate (VENTOLIN MDI) 90 Mcg Ih, 90 MCG IN PRN, #1 INH 0 Refills 2 inhalations every 4 to 6 hours as needed Prov:BRAD NEGRON MD 01/04/24 Reported Medications Ticagrelor Base (Brilinta) 60 Mg Tab, 1 TAB PO BID 01/05/24 Ranolazine (Ranolazine ER) 500 Mg Tab, 1 TAB PO BID 01/05/24 Ezetimibe (Ezetimibe) 10 Mg Tab, 1 TAB PO DAILY 01/05/24 Ticagrelor Base (BRILINTA) 90 Mg Tab, 1 TAB PO BID 01/31/22 Carvedilol (Carvedilol) 3.125 Mg Tab, 1 TAB PO BID 01/31/22 Aspirin (Aspirin Low Dose) 81 Mg Tab, 1 TAB PO DAILYPRN 01/31/22 Atorvastatin Calcium (ATORVASTATIN CALCIUM) 80 Mg Tab, 1 TAB PO DAILYPRN 01/31/22 Information Source: Patient, Emergency Med Personnel Mode of Arrival: EMS Severity: Moderate Duration: Since onset Prehospital treatment: 12 Lead EKG, Test Baker Review of Systems: REVIEW OF SYSTEMS: No fever, no chills, or fatigue HEENT: Congestion. No sore throat, no earache, no neck pain. Cardiac: No chest pain. No palpitations. Lungs: No shortness of breath, no cough. GI: Nausea, dry-heaving, no vomiting, no diarrhea, no constipation, no abdominal pain : No dysuria, frequency, or urgency. No hematuria. Musculoskeletal: No joint pain , no joint swelling, no extremity edema. Skin: No rash, no itching. Neuro: No headache, no dizziness, no weakness Vital Signs Vital Signs Date Time Temp Pulse Resp B/P (MAP) Pulse Ox O2 Delivery O2 Flow Rate FiO2 02/10/25 03:00 59 16 128/60 (82) 94 02/09/25 23:23 Room Air* 0 21 02/09/25 23:05 97.8 97.8 Physical Exam General: Awake, alert and oriented. No acute distress. Skin: Skin in warm, dry and intact. Appropriate color for ethnicity. HEENT: The head is normocephalic and atraumatic. Conjunctivae are clear without exudates or hemorrhage. Sclera is non-icteric. EOM are intact. No signs of nystagmus. Eyelids are normal in appearance without swelling or lesions. Oral mucosa is pink and moist Neck: The neck is supple with normal range of motion. No JVD. Cardiac: Heart rate and rhythm are normal. No murmurs, gallops, or rubs are auscultated. Respiratory: Wheezing, bilaterally. No signs of respiratory distress. Lung sounds are clear in all lobes bilaterally without rales or rhonchi. Abdominal: Abdomen is soft, non-tender without distention. Bowel sounds are present and normoactive in all four quadrants. Extremities: Upper and lower extremities are atraumatic in appearance without deformity or edema. Neurological: The patient is awake, alert and oriented to person, place, and time with normal speech. Speech is clear. There is no facial asymmetry. Normal strength and sensation left upper extremity. Psychiatric: Appropriate mood and affect. Good judgement and insight. 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 Was a procedure done?: No EKG EKG : Pulse Rate (adult): 71 [place]: Normal Cardiac Rhythm: NSR Block: None Hypertrophy: None ST: Normal Comments No STEMI Differential Dx Considerations may include: Differential diagnoses considered include acute ischemic coronary syndrome, aortic dissection, cardiac tamponade, mediastinitis, pulmonary embolus, pneumothorax, tension pneumothorax, esophageal rupture, coronary artery vasospasm, myocarditis, pericarditis, pneumonia, pulmonary edema, esophageal tear, pancreatitis, aortic stenosis, dilated cardiomyopathy, hypertrophic cardiomyopathy, mitral valve prolapse, malignancy, pleuritis, pneumomediastinum, primary pulmonary hypertension, cholecystitis, esophageal spasm, esophagus, gastritis, GERD, peptic ulcer disease, costochondritis, fibromyalgia, rib fracture, herpes zoster, radicular syndromes, thoracic outlet syndrome, somatization. X-Ray, Labs, Meds, VS Vital Signs Date Time Temp Pulse Resp B/P (MAP) Pulse Ox O2 Delivery O2 Flow Rate FiO2 5/5/25 03:00 59 16 128/60 (82) 94 02/10/25 02:00 60 15 123/71 (88) 95 02/10/25 01:00 65 16 127/74 (91) 96 02/10/25 00:01 63 16 119/64 (82) 94 02/10/25 00:00 63 02/09/25 23:23 64 17 96 Room Air* 0 21 02/09/25 23:18 71 02/09/25 23:15 16 97 Room Air* 0 21 21 02/09/25 23:05 97.8 73 20 199/107 (137) 98 97.8 02/09/25 23:02 97.8 64 17 135/55 (81) 96 97.8 02/09/25 22:41 71 Lab Test 02/10/25 02:12 02/09/25 23:50 02/09/25 23:18 Range/Units Troponin I High Sensitivity 3 L 4 </=34 ng/L Influenza Type A Antigen Negative Negative Influenza Type B Antigen Negative Negative SARS-CoV-2 Antigen (Rapid) Negative NEGATIVE White Blood Count 5.1 4.4-10.8 10^3/uL Red Blood Count 5.03 4.0-5.20 10^6/uL Hemoglobin 14.6 12.2-16.2 g/dL Hematocrit 43.7 36.0-46.0 % Mean Corpuscular Volume 86.9 80.0-100.0 fL Mean Corpuscular Hemoglobin 29.1 28.0-32.0 pg Mean Corpuscular Hemoglobin Concent 33.5 32.0-36.0 g/dL Red Cell Distribution Width 14.7 H 11.8-14.3 % Platelet Count 187 140-450 10^3/uL Mean Platelet Volume 8.1 6.9-10.8 fL Neutrophils (%) (Auto) 48.9 37.0-80.0 % Lymphocytes (%) (Auto) 38.8 10.0-50.0 % Monocytes (%) (Auto) 7.8 0.0-12.0 % Eosinophils (%) (Auto) 2.9 0.0-7.0 % Basophils (%) (Auto) 1.6 0.0-2.0 % Neutrophils # (Auto) 2.5 1.6-8.6 10 ^3/uL Lymphocytes # (Auto) 2.0 0.4-5.4 10 ^3/uL Monocytes # (Auto) 0.4 0-1.3 10 ^3/uL Eosinophils # (Auto) 0.1 0-0.8 10 ^3/uL Basophils # (Auto) 0.1 0-0.2 10 ^3/uL Nucleated Red Blood Cells 0.1 % Sodium Level 141 136-145 mmol/L Potassium Level 4.1 3.5-5.1 mmol/L Chloride Level 110 H 98-107 mmol/L Carbon Dioxide Level 25 20-31 mmol/L Anion Gap 6 5-15 Blood Urea Nitrogen 16 9-23 mg/dL Creatinine 1.11 H 0.550-1.02 mg/dL Glomerular Filtration Rate Calc 53 >90 mL/min BUN/Creatinine Ratio 14.4 10.0-20.0 Serum Glucose 97 74-106 mg/dL Calcium Level 9.6 8.7-10.4 mg/dL Total Bilirubin 0.4 0.2-1.0 mg/dL Aspartate Amino Transferase (AST) 8 L 13-40 U/L Alanine Aminotransferase (ALT) 15 7-40 U/L Alkaline Phosphatase 83 46-116 U/L B-Type Natriuretic Peptide 17.04 0-100 pg/mL Total Protein 6.4 5.7-8.2 g/dL Albumin 4.1 3.2-4.8 g/dL Plasma/Serum Blood Alcohol < 3.0 <10 mg/dL Current Medications Medications (Trade) Dose Ordered Sig/Natacha Route Start Time Stop Time Status Last Admin Aspirin 324 mg ONCE ONCE PO 02/09/25 23:15 02/09/25 23:16 DC 02/09/25 23:28 Albuterol (Ventolin Medneb) 2.5 mg ONCE ONCE NEB 02/09/25 23:15 02/09/25 23:16 DC 02/09/25 23:[address] [address] Ph: [phone] DIAGNOSTIC IMAGING Diagnostic Imaging Report : [id number] Signed PATIENT: ZEKE INFANTE ACCT: [id number] UNIT: [id number] : 1950 LOC: ER ROOM / BED: / AGE / SEX: 74 / F ADM STATUS: REG ER SERVICE DT: [id number] ORDERING PHYSICIAN: LUDY LIVE MD PROCEDURE(s): CXR1 - CHEST XRAY 1 VIEW REASON: cp ORDER NUMBER(s): [id number], ACCESSION NUMBER(s): [id number] CHEST RADIOGRAPH Indication: cp Technique: Single frontal view of the chest was obtained COMPARISON: XY CHEST PORTABLE on DOS: 07/01/24 FINDINGS: Lines and Tubes: None Lungs: Clear Pleura: No effusion. No pneumothorax. Cardiomediastinal contours: Unremarkable IMPRESSION: 1. No abnormality demonstrated. ATED BY: HIGINIO FARIA MD DICTATED DATE/TIME: 02/09/252348 SIGNED BY: HIGINIO FARIA MD SIGNED DATE/TIME: 02/09/252348 CC: Images Reviewed?: Images reviewed and evaluated by me (Independent interpretation of chest x-ray: No acute disease) Time of 1ST Reevaluation: 23:30 Reevaluation 1ST: Unchanged Patient Education/Counseling: Need For Follow Up Family Education/Counseling: No Family Present Departure 1 Departure Time of Disposition: 03:12 Impression: Primary Impression: Left arm numbness Disposition: 01 HOME / SELF CARE / HOMELESS Condition: Stable Additional Instructions: ED DISCHARGE INSTRUCTIONS Instructions: Please read all instructions provided in this packet carefully. Although you have been discharged from the Emergency Department, this does not mean that you have a "clean bill of health". No definitive diagnosis for your symptoms has been made today. It is possible that you are in the process of developing a serious illness. This is why you must return to the ED without fail if any new or worsening symptoms (especially if your symptoms include chest pain, trouble breathing, abdominal pain, fever, headache, confusion, trouble seeing, or trouble walking) It is also very important that you see a primary care doctor within the next 3-5 days to follow up. If you are unable to get an appointment, return to the ED for re-evaluation. CHEST PAIN EDUCATION There are many things that can cause chest pain. Some are not serious and will get better on their own in a few days. But some kinds of chest pain need more testing and treatment. Your doctor may have recommended a follow-up visit in the next few days. If you are not getting better, you may need more tests or treatment. Even though your doctor has released you, you still need to watch for any p roblems. The doctor carefully checked you, but sometimes problems can develop later. If you have new symptoms or if your symptoms do not get better, get medical care right away. If you have worse or different chest pain or pressure that lasts more than 5 minutes or you passed out (lost consciousness), call 911 or seek other emergency help right away. A medical visit is only one step in your treatment. Even if you feel better, you still need to do what your doctor recommends, such as going to all suggested follow-up appointments and taking medicines exactly as directed. This will help you recover and help prevent future problems. How can you care for yourself at home? Rest until you feel better. Take your medicine exactly as prescribed. Call your doctor if you think you are having a problem with your medicine. Do not drive after taking a prescription pain medicine. When should you call for help? Call 911 if: You passed out (lost consciousness). You have severe difficulty breathing. You have symptoms of a heart attack. These may include: Chest pain or pressure, or a strange feeling in your chest. Sweating. Shortness of breath. Nausea or vomiting. Pain, pressure, or a strange feeling in your back, neck, jaw, or upper belly or in one or both shoulders or arms. Lightheadedness or sudden weakness. A fast or irregular heartbeat. After you call 911, the elevated work platform operator may tell you to chew 1 adult-strength or 2 to 4 low-dose aspirin. Wait for an ambulance. Do not try to drive yourself. Call your doctor now or seek immediate medical care if: You have any trouble breathing. You have new or different chest pain. You are dizzy or lightheaded, or you feel like you may faint. Watch closely for changes in your health, and be sure to contact your doctor if you do not get better as expected. Current as of: May 08, 2024 Author: lifeIOchanell [employer] Staff? Comments 74-year-old female with a history of coronary artery disease presented with sensation of left arm numbness. There is no sensory deficit or weakness on exam. EKG negative for signs of ischemia. High sensitivity troponin negative x 2. CXR shows no acute process. Presentation not suggestive of CVA, acute coronary syndrome, pulmonary embolism or aortic dissection. Patient improved at time of discharge. No hypoxia, respiratory distress or dyspnea at discharge. Patient able to ambulate without difficulty. Patient well-appearing, nontoxic. Advised prompt follow-up with PCP, return to the ED with any new, worsening or concerning symptoms. Extensive evaluation was performed in attempt to identify or rule out: (See differential diagnosis section) The following tests were ordered, and results were reviewed by me and discussed with patient: (See diagnostic results section) The following test were independently interpreted by me: EKG, chest x-ray I reviewed and agreed with the following test results read by other providers: Chest x-ray I reviewed the following notes from the pt's past medical encounters: July 01, 2024 and January 032023 encounters for Chest pain r/o ACS and shortness of breath, respectively. Additional information was gathered from interviewing the following independent historians: EMS Discussion of management or test interpretation with external physician/other qualified health director of health care marketing: N/A Decision regarding hospitalization or escalation of hospital level of care: Risks and benefits of admission for further treatment of patient's condition was considered however due to patient's stable condition patient will be discharged to follow up closely or return to care for worsening of condition or inability to follow up. Critical Care Note Critical Care Time?: No Stability Stability form required: No Heart Score Heart Score: Heart Score Response (Comments) Value History Slightly Suspicious 0 EKG Normal 0 Age >65 2 Risk Factors >3 or Hx ASHD 2 Troponin Normal limit 0 Total 4 I personally scribed for LUDY LIVE MD ([employer]) on 02/09/25 at 23:18. Electronically submitted by Mickey Negron ([email or web address]). I personally scribed for LUDY LIVE MD ([email or web address]) on 02/10/25 at 00:50. Electronically submitted by Mickey Negron ([email or web address]). LUDY LIVE MD February 09, 2025 23:18
[2025-02-09] MEDS: ALBUTEROL SULF 2.5 MG/0.5ML(0.5%) NEB SOLN NEB ONE (23:20)
[2025-02-09 23:23] VITALS: PULSE 64; RESP 17; O2SAT 96
[2025-02-09] MEDS: ASPirin 81 mg TAB PO ONE (23:28)
[2025-02-09 23:39] LABS: Basophils # (auto) 0.1 10 ^3/uL (0-0.2); Basophils % (auto) 1.6 % (0.0-2.0); Eosinophils # (auto) 0.1 10 ^3/uL (0-0.8); Eosinophils % (auto) 2.9 % (0.0-7.0); Hematocrit 43.7 % (36.0-46.0); Hemoglobin 14.6 g/dL (12.2-16.2); Lymphocytes % (auto) 38.8 % (10.0-50.0); Mean Corpuscular Hemoglobin 29.1 pg (28.0-32.0); Mean Corpuscular Hgb Conc. 33.5 g/dL (32.0-36.0); Mean Corpuscular Volume 86.9 fL (80.0-100.0); Monocytes # (auto) 0.4 10 ^3/uL (0-1.3); Monocytes % (auto) 7.8 % (0.0-12.0); Neutrophils # (auto) 2.5 10 ^3/uL (1.6-8.6); Neutrophils % (auto) 48.9 % (37.0-80.0); Nucleated Red Blood Cells % 0.1 %; Platelet Count (auto) 187 10^3/uL (140-450); Red Blood Cells 5.03 10^6/uL (4.0-5.20); Red Cell Distribution Width 14.7 % (11.8-14.3); White Blood Cell 5.1 10^3/uL (4.4-10.8)
--- NOTE | 2025-02-09 23:51 | DVH ---
CHEST RADIOGRAPH Indication: cp Technique: Single frontal view of the chest was obtained COMPARISON: XY CHEST PORTABLE on DOS: 07/01/24 FINDINGS: Lines and Tubes: None Lungs: Clear Pleura: No effusion. No pneumothorax. Cardiomediastinal contours: Unremarkable IMPRESSION: 1. No abnormality demonstrated.
[2025-02-09 23:57] LABS: Alanine Aminotransferase 15 U/L (7-40); Albumin 4.1 g/dL (3.2-4.8); Alkaline Phosphatase 83 U/L (46-116); Anion Gap 6 (5-15); BUN/Creatinine Ratio 14.4 (10.0-20.0); Bilirubin, Total 0.4 mg/dL (0.2-1.0); Blood Urea Nitrogen 16 mg/dL (9-23); Calcium 9.6 mg/dL (8.7-10.4); Carbon Dioxide 25 mmol/L (20-31); Glucose 97 mg/dL (74-106); Potassium 4.1 mmol/L (3.5-5.1); Sodium 141 mmol/L (136-145); Total Protein 6.4 g/dL (5.7-8.2)
[2025-02-10 00:08] LABS: Aspartate Aminotransferase 8 U/L (13-40); Chloride 110 mmol/L (98-107)
[2025-02-10 00:41] LABS: COVID19 ANTIGEN SOFIA FIA NEGATIVE (NEGATIVE); Rapid Influenza A Negative (Negative); Rapid Influenza B Negative (Negative)
[2025-02-10 03:00] VITALS: BP 128/60; PULSE 59; RESP 16; O2SAT 94
--- NOTE | 2025-02-10 06:16 | ECG ---
[facility] Test Date: 2025-02-09 Test Time: 22:41:39 Pat Name: ZEKE INFANTE Department: ED Room: Gender: F [employer]: JEAN-CLAUDE : 1950 Requested By: LUDY LIVE Order Number: [id number] Reading MD: Valerio Naidu Measurements Intervals [place] Rate: 71 P: 74 [place]: 146 QRS: 63 QRSD: 91 T: 55 QT: 404 QTc: 439 Interpretive Statements Sinus rhythm Electronically Signed On 02-13-2025 20:40:13 PDT by Valerio Naidu Please click the below link to view image of tracing.
== END 2025-02-10 03:54 | disposition home or self-care (01) ==
LOC: EDBD 22:36 → ER 22:36
DX: R20.0 Anesthesia of skin (principal); R11.0 Nausea; I25.10 Atherosclerotic heart disease of native coronary artery without angina pectoris; I10 Essential (primary) hypertension; I25.2 Old myocardial infarction; E78.5 Hyperlipidemia, unspecified; F17.210 Nicotine dependence, cigarettes, uncomplicated; Z20.822 Contact with and (suspected) exposure to COVID-19; Z86.73 Personal history of transient ischemic attack (TIA), and cerebral infarction without residual deficits; Z90.710 Acquired absence of both cervix and uterus; Z90.49 Acquired absence of other specified parts of digestive tract; Z79.02 Long term (current) use of antithrombotics/antiplatelets; Z79.899 Other long term (current) drug therapy; Z95.5 Presence of coronary angioplasty implant and graft; Z88.1 Allergy status to other antibiotic agents; Z88.5 Allergy status to narcotic agent; Z88.6 Allergy status to analgesic agent
CPT/HCPCS: 36415; 71045; 80053; 80320; 83880; 84484; 85025; 87426; 87804; 93005; 94640

== ENCOUNTER 2025-04-06 04:27 | Inpatient (IN) | payer MEDICAID, OTHER ==
[~2025-04-06] VITALS: Ht 170.2 cm; Wt 102.2 kg
[2025-04-06 05:00] VITALS: PULSE 57; RESP 22; O2SAT 95
--- NOTE | 2025-04-06 05:20 | ED.PDOC ---
HPI Comments 74-year-old female with a history of CAD and TN status post PTCA transferred from [facility] for further evaluation of chest pain. Patient presented to the ED at [facility] yesterday stating she developed chest pain while walking in a store, felt "flushed," then experienced a near syncopal episode. Workup at [facility] was unremarkable, including 3- serial troponins. Because of the patient's history, she was transferred here for further cardiology evaluation. On arrival to our ED, the patient denies any current chest pain, shortness of breath or lightheadedness. Chief Complaint: Chest Pain Time Seen by MD: 05:16 Primary Care Provider: ? Reviewed Notes: Electrotyper Helper Notes Allergies: Coded Allergies: Cephalexin (Verified Allergy, Unknown, 01/25/17) Codeine (Verified Allergy, Unknown, 01/25/17) Hydrocodone (Verified Allergy, Unknown, 02/09/25) Ibuprofen (Verified Allergy, Unknown, 01/25/17) Home Meds Active Scripts Ondansetron Odt 4MG Tab (ZOFRAN PO) 4 Mg Tb, 4 MG PO Q8HP PRN for 10 Days, #30 TAB ODT TAB-DISSOLVE IN MOUTH, THEN SWALLOW Prov:AUSTINROMI Holden DO 01/07/24 Guaifenesin (Guaifenesin) 200 Mg Tab, 200 MG PO BID PRN for 10 Days, #20 TAB Prov:ROMI AUSTIN DO 01/07/24 Azithromycin (Azithromycin) 250 Mg Tab, 250 MG PO DAILY MDD 500 for 5 Days, #6 TAB 0 Refills 2 TABLETS ORALLY ON DAY ONE, THEN 1 TABLET ORALLY DAILY FOR 4 DAYS Prov:NATALIIA AUSTINMY Holden DO 01/07/24 Methylprednisolone (Medrol Dosepak) 4 Mg Magdaleno, 4 MG PO UD, #21 TAB UAD Prov:BRAD BALDERAS MD 01/04/24 Albuterol Sulfate (VENTOLIN MDI) 90 Mcg Ih, 90 MCG IN PRN, #1 INH 0 Refills 2 inhalations every 4 to 6 hours as needed Prov:BRAD BALDERAS MD 01/04/24 Reported Medications Ticagrelor Base (Brilinta) 60 Mg Tab, 1 TAB PO BID 01/05/24 Ranolazine (Ranolazine ER) 500 Mg Tab, 1 TAB PO BID 01/05/24 Ezetimibe (Ezetimibe) 10 Mg Tab, 1 TAB PO DAILY 01/05/24 Ticagrelor Base (BRILINTA) 90 Mg Tab, 1 TAB PO BID 01/31/22 Carvedilol (Carvedilol) 3.125 Mg Tab, 1 TAB PO BID 01/31/22 Aspirin (Aspirin Low Dose) 81 Mg Tab, 1 TAB PO DAILYPRN 01/31/22 Atorvastatin Calcium (ATORVASTATIN CALCIUM) 80 Mg Tab, 1 TAB PO DAILYPRN 01/31/22 Information Source: Patient, Emergency Med Personnel Mode of Arrival: EMS Severity: Moderate Timing: Hours Duration: Since onset Prehospital treatment: 12 Lead EKG Location: Substernal Radiation: No Radiation Quality: Pressure Onset: With Light Exertion Associated Signs and Symptoms: N/V Past Medical History PAST MEDICAL HISTORY: CAD, High Lipids, HTN, TN, TIA Surgical History: Cholecystectomy, , Hysterectomy, PTCA [employer] History: Endometriosis Family History Family History: Reviewed,noncontributory to illness Social History Smoker: Non-Smoker, Less Than 1 Pack/Day Alcohol: Denies ETOH Use Drugs: Denies Drug Use Lives In: Home Constitutional: denies: chills, diaphoresis, fatigue, fever, malaise, sweats, weakness, others EENTM: denies: blurred vision, double vision, ear bleeding, ear discharge, ear drainage, ear pain, ear ringing, eye pain, eye redness, hearing loss, mouth pain, mouth swelling, nasal discharge, nose bleeding, nose congestion, nose pain, photophobia, tearing, throat pain, throat swelling, voice changes, others Respiratory: denies: cough, hemoptysis, orthopnea, SOB at rest, shortness of breath, SOB with excertion, stridor, wheezing, others Cardiovascular: reports: chest pain; denies: dizzy spells, diaphoresis, Dyspnea on exertion, edema, irregular heart beat, left arm pain, lightheadedness, palpitations, PND, syncope, others Gastrointestinal: denies: abdomen distended, abdominal pain, blood streaked bowels, constipated, diarrhea, dysphagia, difficulty swallowing, hematemesis, melena, nausea, poor appetite, poor fluid intake, rectal bleeding, rectal pain, vomiting, others Genitourinary: denies: abnormal vagina bleeding, burning, dyspareunia, dysuria, flank pain, frequency, hematuria, incontinence, pain, , vagina discharge, urgency, others Neurological: reports: dizziness, fainting; denies: headache, left sided numbness, left sided weakness, numbness, paresthesia, pre-existing deficit, right sided numbness, right sided weakness, seizure, speech problems, tingling, tremors, weakness, others Musculoskeletal: denies: back pain, gout, joint pain, joint swelling, muscle pain, muscle stiffness, neck pain, others Integumetry: denies: bruises, change in color, change in hair/nails, dryness, laceration, lesions, lumps, rash, wounds, others Allergic/Immunocompromised: denies: Difficulty Healing, Frequent Infections, Hives, Itching, others Hematologic/Lymphatic: denies: anemia, blood clots, easy bleeding, easy bruising, swollen glands, others Endocrine: denies: excessive hunger, excessive sweating, excessive thirst, excessive urination, flushing, intolerance to cold, intolerance to heat, unexplained weight gain, unexplained weight loss, others Psychiatric: denies: anxiety, bipolar disorder, depression, hopeless, panic disorder, schizophrenia, sleepless, suicidal, others Physical Exam General Appearance: No Apparent Distress HEENT: Other (Pupils and face symmetric. Moist mucous membranes.) Neck: Full Range of Motion, Normal Inspection Respiratory: Lungs Clear, No Accessory Muscle Use, No Respiratory Distress, Normal Breath Sounds Cardiovascular: No Edema, No JVD, Regular Rate/Rhythm Breast Exam: Deferred Gastrointestinal: Non Tender, Soft Genitalia: Deferred Pelvic: Deferred Rectal: Deferred Extremities: Normal inspection, Normal range of motion, Non-tender, No pedal edema Neurologic: Alert (Oriented x4), Normal Affect, Normal Mood Cerebellar Function: NOT DONE Reflexes: NOT DONE Skin: Dry, Normal Color, Warm Lymphatic: NOT DONE EKG EKG : Comments Sinus bradycardia, rate 51, normal intervals, left axis deviation, possible old inferior infarct, nonspecific T change. Was a procedure done? Was a procedure done?: No CP Differential Dx Differential Diagnosis: Angina, Anxiety / Panic Attack, TN Differential Diagnosis: CHF Differential Diagnosis: Angina, Chest Wall Pain, Costochondritis, Esophageal reflux/spasm, Gastritis, Myocardial Infarction, Pericarditis, Pneumonia X-Ray, Labs, Meds, VS Vital Signs Date Time Temp Pulse Resp B/P (MAP) Pulse Ox O2 Delivery O2 Flow Rate FiO2 04/06/25 06:00 58 11 97/43 (61) 04/06/25 05:15 55 04/06/25 05:00 97.9 57 22 111/49 (69) 95 97.9 04/06/25 05:00 57 22 95 Room Air* 0 21 04/06/25 04:40 96.2 88 18 120/60 (80) 96 96.2 Lab Test 04/06/25 05:53 04/06/25 05:00 Range/Units Troponin I High Sensitivity < 3 L < 3 L </=34 ng/L White Blood Count 5.0 4.4-10.8 10^3/uL Red Blood Count 4.77 4.0-5.20 10^6/uL Hemoglobin 14.0 12.2-16.2 g/dL Hematocrit 40.8 36.0-46.0 % Mean Corpuscular Volume 85.4 80.0-100.0 fL Mean Corpuscular Hemoglobin 29.3 28.0-32.0 pg Mean Corpuscular Hemoglobin Concent 34.3 32.0-36.0 g/dL Red Cell Distribution Width 14.8 H 11.8-14.3 % Platelet Count 164 140-450 10^3/uL Mean Platelet Volume 8.2 6.9-10.8 fL Neutrophils (%) (Auto) 50.6 37.0-80.0 % Lymphocytes (%) (Auto) 37.8 10.0-50.0 % Monocytes (%) (Auto) 8.0 0.0-12.0 % Eosinophils (%) (Auto) 2.4 0.0-7.0 % Basophils (%) (Auto) 1.2 0.0-2.0 % Neutrophils # (Auto) 2.5 1.6-8.6 10 ^3/uL Lymphocytes # (Auto) 1.9 0.4-5.4 10 ^3/uL Monocytes # (Auto) 0.4 0-1.3 10 ^3/uL Eosinophils # (Auto) 0.1 0-0.8 10 ^3/uL Basophils # (Auto) 0.1 0-0.2 10 ^3/uL Nucleated Red Blood Cells 0.1 % Sodium Level 142 136-145 mmol/L Potassium Level 3.9 3.5-5.1 mmol/L Chloride Level 109 H 98-107 mmol/L Carbon Dioxide Level 25 20-31 mmol/L Anion Gap 8 5-15 Blood Urea Nitrogen 17 9-23 mg/dL Creatinine 1.14 H 0.550-1.02 mg/dL Glomerular Filtration Rate Calc 51 >90 mL/min BUN/Creatinine Ratio 14.9 10.0-20.0 Serum Glucose 114 H 74-106 mg/dL Calcium Level 9.4 8.7-10.4 mg/dL Total Bilirubin 0.4 0.2-1.0 mg/dL Aspartate Amino Transferase (AST) 9 <34 U/L Alanine Aminotransferase (ALT) 12 7-40 U/L Alkaline Phosphatase 84 46-116 U/L B-Type Natriuretic Peptide 8.02 0-100 pg/mL Total Protein 6.2 5.7-8.2 g/dL Albumin 3.9 3.2-4.8 g/dL PROCEDURE(s): CXRP - CHEST PORTABLE REASON: cp ORDER NUMBER(s): [id number], ACCESSION NUMBER(s): [id number] CHEST RADIOGRAPH Indication: cp Technique: Single frontal view of the chest was obtained COMPARISON: XY CHEST XRAY 1 VIEW on DOS: 02/09/25, XY CHEST PORTABLE on DOS: 07/01/24, XY CHEST PORTABLE on DOS: 02/15/23, XY CHEST PORTABLE on DOS: 01/03/23, CXRP on DOS: 01/30/22 FINDINGS: Lines and Tubes: None Lungs: The costophrenic angles are excluded from the image. No evidence of focal consolidation. Pleura: No effusion. No pneumothorax. Cardiomediastinal contours: Unremarkable Bones: Unremarkable IMPRESSION: 1. No acute disease. Bilateral costophrenic angles excluded from the image. X-Ray, Labs, Meds, VS Comment 74-year-old female with a history of CAD and TN status post PTCA transferred fr [facility] for further evaluation of chest pain. Vitals remarkable for heart rate 58, BP 97/43 Exam unremarkable Rhythm strip independently interpreted by me: Sinus bradycardia, rate 51 , no ectopy. Chest x-ray unremarkable CBC unremarkable, metabolic panel remarkable for creatinine 1.14, BNP and 1st troponin negative Patient treated with the following in the ED: 1 L 0.9 normal saline IV bolus On re-evaluation, patient remains asymptomatic. Vitals are stable. Plan is to admit the patient for Cardiology evaluation. Time of 1ST Reevaluation: 05:19 Reevaluation 1ST: Unchanged Patient Education/Counseling: Diagnosis, Treatment Family Education/Counseling: No Family Present SEPSIS Sepsis Screen Date sepsis recognized/suspect: Apr 06, 2025 Time Sepsis recognized/suspect: 508 Recent Procedure: No On Antibiotic Therapy: No Respiratory Rate >20: No Heart Rate >90: No Temp<36 C (96.8 F) or >38.3 C: No SBP <90 or MAP <65 mmHG: No New Acute Mental Status Change: No Is the patient on CPAP, BIPAP,: No Physician Orders Chest Portable (04/06/25 04:37) Urinalysis (04/06/25 04:37) Electrocardigram (04/06/25 04:37) Troponin-I Hs (04/06/25 07:37) Electrocardigram (04/06/25 05:37) Electrocardigram (04/06/25 07:37) Sodium Chloride 0.9% (04/06/25 06:45) Vital Signs Date Time Temp Pulse Resp B/P (MAP) Pulse Ox O2 Delivery O2 Flow Rate FiO2 04/06/25 06:00 58 11 97/43 (61) 04/06/25 05:15 55 04/06/25 05:00 97.9 57 22 111/49 (69) 95 97.9 04/06/25 05:00 57 22 95 Room Air* 0 21 04/06/25 04:40 96.2 88 18 120/60 (80) 96 96.2 Laboratory Tests Test 04/06/25 05:00 White Blood Count 5.0 10^3/uL (4.4-10.8) Departure 1 Departure Time of Disposition: 06:38 Impression: Primary Impression: Chest pain with high risk for cardiac etiology Additional Impression: Bradycardia Disposition: 09 ADMITTED INPATIENT Admit to: Tele Condition: Guarded Critical Care Note Critical Care Time?: Yes (35 min-critical care time only) Critical care comment: Critical care time including multiple bedside re-evaluations, review of lab and imaging studies, and discussion of the case with the admitting provider. Patient is high risk for hemodynamic decompensation. Stability Stability form required: No Heart Score Heart Score: Heart Score Response (Comments) Value History Moderate Suspicious 1 EKG Repolarization Disturb 1 Age >65 2 Risk Factors >3 or Hx ASHD 2 Troponin Normal limit 0 Total 6 I personally scribed for SOHAIL PITTMAN MD ([email or web address]) on 04/06/25 at 05:20. Electronically submitted by Devan Lin ([employer]). I personally scribed for SOHAIL PITTMAN MD ([email or web address]) on 04/06/25 at 05:45. Electronically submitted by Devan Lin ([employer]). SOHAIL PITTMAN MD Apr 06, 2025 05:20
[2025-04-06 05:25] LABS: Hematocrit 40.8 % (36.0-46.0); Hemoglobin 14.0 g/dL (12.2-16.2); Mean Corpuscular Hemoglobin 29.3 pg (28.0-32.0); Mean Corpuscular Volume 85.4 fL (80.0-100.0); Nucleated Red Blood Cells % 0.1 %
--- NOTE | 2025-04-06 05:55 | DVH ---
CHEST RADIOGRAPH Indication: cp Technique: Single frontal view of the chest was obtained COMPARISON: XY CHEST XRAY 1 VIEW on DOS: 02/09/25, XY CHEST PORTABLE on DOS: 07/01/24, XY CHEST PORTABLE on DOS: 02/15/23, XY CHEST PORTABLE on DOS: 01/03/23, CXRP on DOS: 01/30/22 FINDINGS: Lines and Tubes: None Lungs: The costophrenic angles are excluded from the image. No evidence of focal consolidation. Pleura: No effusion. No pneumothorax. Cardiomediastinal contours: Unremarkable Bones: Unremarkable IMPRESSION: 1. No acute disease. Bilateral costophrenic angles excluded from the image.
[2025-04-06 06:03] LABS: Alanine Aminotransferase 12 U/L (7-40); Albumin 3.9 g/dL (3.2-4.8); Alkaline Phosphatase 84 U/L (46-116); Anion Gap 8 (5-15); BUN/Creatinine Ratio 14.9 (10.0-20.0); Blood Urea Nitrogen 17 mg/dL (9-23); Calcium 9.4 mg/dL (8.7-10.4); Carbon Dioxide 25 mmol/L (20-31); Potassium 3.9 mmol/L (3.5-5.1); Sodium 142 mmol/L (136-145); Total Protein 6.2 g/dL (5.7-8.2)
[2025-04-06 06:04] LABS: Bilirubin, Total 0.4 mg/dL (0.2-1.0); Chloride 109 mmol/L (98-107); Glucose 114 mg/dL (74-106)
[2025-04-06] MEDS: SODIUM CHLORIDE 0.9% 1,000 ML IV ONE (07:02)
--- NOTE | 2025-04-06 07:03 | ECG ---
[facility] Test Date: 2025-04-06 Test Time: 06:54:02 Pat Name: ZEKE INFANTE Department: ED Room: [address] [place] [address] Gender: F Shank Stitcher: : 1950 Requested By: SOHAIL PEREZ Order Number: [id number] Reading MD: Valerio Naidu Measurements Intervals [place] Rate: 51 P: -21 AR: 150 QRS: -17 QRSD: 89 T: -5 QT: 474 QTc: 437 Interpretive Statements Sinus rhythm LVH by voltage Inferior infarct, old Baseline wander in lead(s) V1,V2 Electronically Signed On 04-11-2025 9:37:23 PDT by Valerio Naidu Please click the below link to view image of tracing.
[2025-04-06 07:30] VITALS: PULSE 51; RESP 19; O2SAT 95
[2025-04-06] MEDS ORDERED: MORPHINE SULFATE INJ 2 MG/ml SYRG IV PRN (10:15)
[2025-04-06] MEDS ORDERED: NITROGLYCERIN 0.4 MG SL TAB SL PRN (10:15)
[2025-04-06] MEDS: NICOTINE 14 MG/24HR TOPICAL PATCH TD ONE (10:34)
--- NOTE | 2025-04-06 10:38 | DVHHP2 ---
History of Present Illness Reason for Visit: Chest pain History of Present Illness A 74-year-old female with past medical history of CAD status post PTCA with three drug-eluting stents to the LAD in [address] Holland, hypertension, hyperlipidemia, obesity, transient ischemic attack, and tobacco use, presents to the emergency department after being transferred from [facility] for further evaluation of chest pain. The patient initially presented to [facility] yesterday after experiencing chest pain while walking in the store, accompanied by flushing and a near-syncope episode. Initial evaluation at [facility] revealed normal serial troponins and unremarkable chest x-ray. However due to ongoing symptoms and concern for possible ischemia she was transferred for further workup. In our ED, a 12 lead ECG showed normal sinus rhythm with no acute ischemic changes. Several troponin levels remained within normal limits, BNP was more mild and repeat chest x-ray was unremarkable. Past Medical History As stated in HPI Past Surgical History PTCA Family History Reviewed, non-contributory to the management of this case. Past Social History Admits to tobacco use half a pack per day Denies illicit drug use or ETOH abuse Review of Systems Constitutional: Yes: Malaise; No: Fever, Chills, Sweats, Weakness, Other Eyes: No: Pain, Vision change, Conjunctivae inflammation, Eyelid inflammation, Other, Redness ENT: No: Ear pain, Ear discharge, Nose pain, Nose discharge, Nose congestion, Mouth pain, Mouth swelling, Throat pain, Throat swelling, Other Respiratory: No: Cough, Dry, Shortness of breath, SOB with excertion, Wheezing, Hemoptysis, Pleuritic Pain, Sputum, Wheezing, Other Cardiovascular: Chest Pain, Other (Reports chest discomfort and near-syncope, denies palpitation or orthopnea); No: Palpitations, Orthopnea, Paroxysmal Noc. Dyspnea, Edema, Lt Headedness Gastrointestinal: No: Nausea, Vomiting, Abdominal Pain, Diarrhea, Constipation, Melena, Hematochezia, Other Genitourinary: No Dysuria, No Frequency, No Incontinence, No Hematuria, No Retention, No Other Musculoskeletal: No: other, neck pain, shoulder pain, arm pain, back pain, hand pain, leg pain, foot pain Skin: No: Rash, Lesions, Jaundice, Bruising, Other Neurological: No: Weakness, Numbness, Incoordination, Change in speech, Confusion, Seizures, Other Allergies: Coded Allergies: Cephalexin (Verified Allergy, Unknown, 01/25/17) Codeine (Verified Allergy, Unknown, 01/25/17) Hydrocodone (Verified Allergy, Unknown, 02/09/25) Ibuprofen (Verified Allergy, Unknown, 01/25/17) Medications Current Medications Medications Dose Ordered Sig/Natacha Route Start Time Stop Time Status Last Admin Dose Admin Ondansetron HCl 4 mg Q4HP PRN IV 04/06/25 10:15 Nitroglycerin 0.4 mg Q5MINP PRN SL 04/06/25 10:15 Morphine Sulfate 2 mg Q30M PRN IV 04/06/25 10:15 Nicotine 1 patch DAILY TD 04/07/25 10:00 Exam Vital Signs Vital Signs Date Time Temp Pulse Resp B/P (MAP) Pulse Ox O2 Delivery O2 Flow Rate FiO2 04/06/25 10:04 55 04/06/25 09:00 20 99/58 (72) 96 04/06/25 07:30 97.9 97.9 04/06/25 07:30 Room Air* 0 21 General Appearance: Alert, Oriented X3, Cooperative, No acute distress HEENT: Atraumatic, PERRLA, EOMI Respiratory: Clear to auscultation, Normal air movement Cardiovascular: Regular rate, Normal S1, Normal S2, No murmurs Abdominal: Normal bowel sounds, Soft, No tenderness Extremities: No clubbing, No cyanosis, No edema Skin: No rashes, No breakdown Neuro: Normal speech, Strength at 5/5 X4 ext, Normal tone Psych/Mental Status: Mental status NL Labs/Xrays Labs Test 04/06/25 05:53 04/06/25 05:00 Range/Units Troponin I High Sensitivity < 3 L </=34 ng/L White Blood Count 5.0 4.4-10.8 10^3/uL Red Blood Count 4.77 4.0-5.20 10^6/uL Hemoglobin 14.0 12.2-16.2 g/dL Hematocrit 40.8 36.0-46.0 % Mean Corpuscular Volume 85.4 80.0-100.0 fL Mean Corpuscular Hemoglobin 29.3 28.0-32.0 pg Mean Corpuscular Hemoglobin Concent 34.3 32.0-36.0 g/dL Red Cell Distribution Width 14.8 H 11.8-14.3 % Platelet Count 164 140-450 10^3/uL Mean Platelet Volume 8.2 6.9-10.8 fL Neutrophils (%) (Auto) 50.6 37.0-80.0 % Lymphocytes (%) (Auto) 37.8 10.0-50.0 % Monocytes (%) (Auto) 8.0 0.0-12.0 % Eosinophils (%) (Auto) 2.4 0.0-7.0 % Basophils (%) (Auto) 1.2 0.0-2.0 % Neutrophils # (Auto) 2.5 1.6-8.6 10 ^3/uL Lymphocytes # (Auto) 1.9 0.4-5.4 10 ^3/uL Monocytes # (Auto) 0.4 0-1.3 10 ^3/uL Eosinophils # (Auto) 0.1 0-0.8 10 ^3/uL Basophils # (Auto) 0.1 0-0.2 10 ^3/uL Nucleated Red Blood Cells 0.1 % Sodium Level 142 136-145 mmol/L Potassium Level 3.9 3.5-5.1 mmol/L Chloride Level 109 H 98-107 mmol/L Carbon Dioxide Level 25 20-31 mmol/L Anion Gap 8 5-15 Blood Urea Nitrogen 17 9-23 mg/dL Creatinine 1.14 H 0.550-1.02 mg/dL Glomerular Filtration Rate Calc 51 >90 mL/min BUN/Creatinine Ratio 14.9 10.0-20.0 Serum Glucose 114 H 74-106 mg/dL Calcium Level 9.4 8.7-10.4 mg/dL Total Bilirubin 0.4 0.2-1.0 mg/dL Aspartate Amino Transferase (AST) 9 <34 U/L Alanine Aminotransferase (ALT) 12 7-40 U/L Alkaline Phosphatase 84 46-116 U/L B-Type Natriuretic Peptide 8.02 0-100 pg/mL Total Protein 6.2 5.7-8.2 g/dL Albumin 3.9 3.2-4.8 g/dL PROCEDURE(s): CXRP - CHEST PORTABLE REASON: cp ORDER NUMBER(s): [id number], ACCESSION NUMBER(s): [id number] CHEST RADIOGRAPH Indication: cp Technique: Single frontal view of the chest was obtained COMPARISON: XY CHEST XRAY 1 VIEW on DOS: 02/09/25, XY CHEST PORTABLE on DOS: 07/01/24, XY CHEST PORTABLE on DOS: 02/15/23, XY CHEST PORTABLE on DOS: 01/03/23, CXRP on DOS: 01/30/22 FINDINGS: Lines and Tubes: None Lungs: The costophrenic angles are excluded from the image. No evidence of focal consolidation. Pleura: No effusion. No pneumothorax. Cardiomediastinal contours: Unremarkable Bones: Unremarkable IMPRESSION: 1. No acute disease. Bilateral costophrenic angles excluded from the image. Assessment/Plan Assessment/Plan # acute chest pain to rule out progressive CAD, heart score 6 # CAD s/p PCI in the LAD x3 MEGHNA in 2020 # near-syncope Admit to telemetry unit Chest pain protocol Cardiology consult with Dr. Holland Continue with Brilinta, Ranolazine, asa, statins Repeat echocardiogram (previous EF 60-65% in 06/2024) Monitor troponins Monitor on telemetry # LOREE on CKD Soft IV fluid # hypertension Continue with carvedilol Monitor Dash diet # hyperlipidemia Continue with statins # tobacco use- 1/2 PPD x many years Nicotine patch Smoking cessation counseled # obesity Lifestyle modification counseled with regular exercise and diet DVT prophylaxis Medical plan discussed with patient and RN Plan discussed with: Patient My Orders Orders - ROBERTO CARLOS LI TRACK MECHANIC Procedure Category Date Status Time Admit ADMIT 04/06/25 Transmitted 10:11 Code Status CODE 04/06/25 Transmitted 10:11 Ondansetron Hcl PHA 04/06/25 In Process (Oumou) 10:15 Fall Risk Precautions SAIGE 04/06/[address] 10:11 Complete Blood Count LAB 04/07/25 Verified 04:00 Comprehensive LAB 04/07/25 Verified Metabolic Panel 04:00 Cardiac DIET 04/06/25 Transmitted Diet-2gna,Lofat,Lochol Lunch Echo 2d Mode Cardiac US 04/06/25 Logged DOP 10:11 Condition: Fair SAIGE 04/06/25 In Process 10:11 Nitroglycerin PHA 04/06/25 In Process Sublingual (Ntrostat 10:15 Morphine Sulfate PHA 04/06/25 In Process Injection 10:15 Stat Ekg For Chest SAIGE 04/06/25 In Process Pain 10:11 Notify Md Of Changes SAIGE 04/06/25 In Process From Base 10:11 Winding Department Supervisor For SAIGE 04/06/25 In Process 24 Hours 10:11 Emergency Dysrhythmia SAIGE 04/06/25 In Process Protocol 10:11 Rhythm Strips Once SAIGE 04/06/25 In Process Every Shift 10:11 Oxygen By Nasal RT 04/06/25 Transmitted Cannula 10:11 *Cons[address] Dr[address] Holland CONS 04/06/25 Transmitted 10:11 PTPTT LAB 04/06/25 Logged 10:11 Thyroid Stimulating LAB 04/06/25 In Process Hormone 10:11 Lipid Panel LAB 04/06/25 In Process 10:11 Hemoglobin A1c LAB 04/06/25 In Process 10:11 Nicotine 14mg/24hr PHA 04/07/25 In Process (Nicoderm 14mg/24hr) 10:00 Aspirin Enteric PHA 04/07/25 Verified Coated Tablet 10:00 Carvedilol Tablet PHA 04/06/25 Verified (Coreg Tablet) 22:00 Ezetimibe (Zetia) PHA 04/07/25 Verified 10:00 Ranolazine (Ranexa Er) PHA 04/06/25 Verified 22:00 Ticagrelor (Brilinta) PHA 04/06/25 Verified 22:00 (Nf) Atorvastatin PHA 04/07/25 Verified Calcium 10:00 Date of Service: Apr 06, 2025 Billing Provider: ROBERTO CARLOS LI Common Visit Codes: [id number] INP/OBS CARE (HIGH) ROBERTO CARLOS LI TRACK MECHANIC Apr 06, 2025 10:38
[2025-04-06 10:41] LABS: Triglycerides 153 mg/dL (< 150)
[2025-04-06 10:42] LABS: HDL Cholesterol 46 mg/dL (40-59)
[2025-04-06 10:43] LABS: Cholesterol 204 mg/dL (< 200)
[2025-04-06 11:14] LABS: INR 0.98 (0.9-1.15); Partial Thromboplastin Time 28.8 SEC (24.5-34.5); Prothrombin Time 10.4 sec (9.3-11.8)
[2025-04-06] MEDS: SODIUM CHLORIDE 0.9% 1,000 ML IV SCH (11:15)
[2025-04-06 20:03] VITALS: PULSE 66; RESP 18; O2SAT 96
[2025-04-06] MEDS: TICAGRELOR 60 MG TAB PO SCH (22:00)
[2025-04-06 22:33] VITALS: BP 125/76; PULSE 67; RESP 18; TEMP 97.5; O2SAT 94; O2SAT 99
[2025-04-06] MEDS: CARVEDILOL 3.125 MG TAB PO SCH (23:19)
[2025-04-06] MEDS: RANOLAZINE ER 500 MG TAB PO SCH (23:20)
[2025-04-06] MEDS: ATORVASTATIN 20 MG TAB PO SCH (23:20)
[2025-04-07] VITALS (8 sets, daily range): BP systolic 125–151; BP diastolic 61–92; PULSE 60–97; RESP 16–19; TEMP 97.1–97.9; O2SAT 92–95
[2025-04-07 06:47] LABS: Hematocrit 38.1 % (36.0-46.0); Hemoglobin 13.1 g/dL (12.2-16.2); Mean Corpuscular Hemoglobin 29.5 pg (28.0-32.0); Mean Corpuscular Volume 86.0 fL (80.0-100.0); Nucleated Red Blood Cells % 0.0 %
[2025-04-07 07:01] LABS: Alanine Aminotransferase 9 U/L (7-40); Albumin 3.5 g/dL (3.2-4.8); Alkaline Phosphatase 75 U/L (46-116); Anion Gap 9 (5-15); BUN/Creatinine Ratio 16.5 (10.0-20.0); Blood Urea Nitrogen 16 mg/dL (9-23); Calcium 9.1 mg/dL (8.7-10.4); Carbon Dioxide 22 mmol/L (20-31); Chloride 110 mmol/L (98-107); Glucose 93 mg/dL (74-106); Potassium 4.1 mmol/L (3.5-5.1); Sodium 141 mmol/L (136-145); Total Protein 5.6 g/dL (5.7-8.2)
[2025-04-07 07:02] LABS: Bilirubin, Total 0.5 mg/dL (0.2-1.0)
[2025-04-07] MEDS: EZETIMIBE 10 MG TAB PO SCH (09:06)
[2025-04-07] MEDS: NICOTINE 14 MG/24HR TOPICAL PATCH TD SCH (09:09)
[2025-04-07] MEDS ORDERED: ASPirin-EC 81 mg tab PO SCH (10:00)
--- NOTE | 2025-04-07 15:55 | DVHPN2 ---
Subjective In bed with no chest pain Reviewed: H&P, Labs Changes from previous H/P or p: No Changes Eyes: No Pain, No Vision change, No Conjunctivae inflammation, No Eyelid inflammation, No Other, No Redness ENT: No Ear pain, No Ear discharge, No Nose pain, No Nose discharge, No Nose congestion, No Mouth pain, No Mouth swelling, No Throat pain, No Throat swelling, No Other Cardiovascular: Chest Pain; No Palpitations, No Orthopnea, No Paroxysmal Noc. Dyspnea, No Edema, No Lt Headedness; Other (Reports chest discomfort and near- syncope, denies palpitation or orthopnea) Respiratory: No Cough, No Dry, No Shortness of breath, No SOB with excertion, No Wheezing, No Hemoptysis, No Pleuritic Pain, No Sputum, No Other Gastrointestinal: No Nausea, No Vomiting, No Abdominal Pain, No Diarrhea, No Constipation, No Melena, No Hematochezia, No Other Genitourinary: No Dysuria, No Frequency, No Incontinence, No Hematuria, No Retention, No Other Musculoskeletal: No other, No neck pain, No shoulder pain, No arm pain, No back pain, No hand pain, No leg pain, No foot pain Skin: No Rash, No Lesions, No Jaundice, No Bruising, No Other Objective Vitals Vital Signs Date Time Temp Pulse Resp B/P (MAP) Pulse Ox O2 Delivery O2 Flow Rate FiO2 04/07/25 13:23 97.1 64 18 147/82 (103) 94 97.1 04/07/25 08:00 Room Air* 0 21 Intake/Output Intake and Output 04/07/25 07:00 Intake Total 790 ml Balance 790 ml Intake Oral 240 ml IV Total 550 ml # Voids 1 General Appearance: Alert, Oriented X3 HEENT: Atraumatic Lungs: Clear to auscultation Cardiovascular: Regular rate, Normal S1, Normal S2 Medications Current Medications Medications Dose Ordered Sig/Natacha Route Start Time Stop Time Status Last Admin Dose Admin Ondansetron HCl 4 mg Q4HP PRN IV 04/06/25 10:15 Nitroglycerin 0.4 mg Q5MINP PRN SL 04/06/25 10:15 Morphine Sulfate 2 mg Q30M PRN IV 04/06/25 10:15 Nicotine 1 patch DAILY TD 04/07/25 10:00 04/07/25 09:09 1 PATCH Aspirin 81 mg DAILYPRN PO 04/07/25 10:00 Hold Carvedilol 3.125 mg BID PO 04/06/25 22:00 04/07/25 09:05 3.125 MG EZETIMIBE 10 mg DAILY PO 04/07/25 10:00 04/07/25 09:06 10 MG Ranolazine 500 mg BID PO 04/06/25 22:00 04/07/25 09:07 500 MG Ticagrelor 60 mg BID PO 04/06/25 22:00 04/07/25 13:44 60 MG Atorvastatin Calcium 80 mg HS PO 04/06/25 22:00 04/06/25 23:20 80 MG Sodium Chloride 1,000 ml @ 75 mls/hr [id number] IV 04/06/25 11:15 04/06/25 23:12 75 MLS/HR Laboratory Results Laboratory Tests 04/07/25 05:29 Chemistry Test 04/07/25 05:29 Albumin 3.5 g/dL (3.2-4.8) Calcium Level 9.1 mg/dL (8.7-10.4) Total Protein 5.6 g/dL (5.7-8.2) L LFT Test 04/07/25 05:29 Alanine Aminotransferase (ALT) 9 U/L (7-40) Alkaline Phosphatase 75 U/L (46-116) Aspartate Amino Transferase (AST) 8 U/L (<34) Total Bilirubin 0.5 mg/dL (0.2-1.0) Assessment/Plan Assessment/Plan # acute chest pain to rule out progressive CAD, heart score 6 # CAD s/p PCI in the LAD x3 MEGHNA in 2020 # near-syncope Cardiology consult with Dr. 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
--- NOTE | 2025-04-07 16:21 | DVHSR ---
APPROVED REPORT EXAM: Two-dimensional and M-mode echocardiogram with Doppler and color Doppler. Blood Pressure: 99/58 mmHg INDICATION Syncope History of CHF RISK FACTORS Height: 68, Weight: 200 DIMENSIONS LVDd3.5 (3.8-5.7cm)LA (2D)2.9 (1.9-4.0cm)Aortic Root (2.0-3.7cm) LVDs2.3 (2.5-4.0cm)LA (MM) (1.9-4.0cm)Aortic Cusp Exc (1.5-2.0cm) EF (%) 65.0 (55-70%)Rt. Atrium3.4 (1.9-4.0cm)Asc. Aorta cm Mitral Valve MitralMitral Stenosis E wave0.81m/sMV Mean GR.mmHg A wave0.94m/sMV Peak GR.mmHg E/A ratio0.92D MVAcm2 DECEL [id number] 1/2 [id number] IVRTmsDop MVA2.34cm2 Aortic Valve Aortic ValveAortic Stenosis V11.21m/Hugo Mean GR.4mmHg V21.42m/Hugo Peak GR.8mmHg Other Information Quality : Technically LimitedRhythm : Technically limited study due to body habitus. Conclusion LVEF 55-60%, mild diastolic dysfunction No significant valve disease
[2025-04-07] MEDS: ONDANSETRON HCL 4 MG/2 ML VIAL IV PRN (17:35)
--- NOTE | 2025-04-07 18:27 | DVHCONRES ---
Date Seen: Apr 07, 2025 Resident Creating Document: YAHAIRA TELLEZ RESDIENT History of Present Illness This is a 74-year-old female with past medical history of coronary artery disease (status PCI), hypertension, dyslipidemia, TIA came to the hospital due to chest pain. Patient was also admitted yesterday at [facility] due to same symptoms. Per patient, pain is localized at lower chest, pressure-like, nonradiating, 6/10, with no clear exacerbating or relieving factor. She also reports of fever, cough, and mild nausea. She denies shortness of breaths, palpitation, sputum, or any recent sick contacts or chest trauma. PMHx: coronary artery disease (status PCI), hypertension, dyslipidemia, TIA Social history: Current smoker Home medication: Atorvastatin, aspirin, carvedilol, ezetimibe, ticagrelor, normalizing, but currently the patient does not take any medicine. Allergic history: Cephalexin, codeine, hydrocodone, and ibuprofen Patient seen and examined at the bedside patient is currently feeling better since admission and does not have any chest pain. Family History: Cerebrovascular accident (CVA) G8 FATHER FH: breast cancer G8 MOTHER G8 SISTER FH: heart attack G8 MOTHER G8 FATHER FH: ovarian cancer G8 MOTHER G8 SISTER Allergies: Coded Allergies: Cephalexin (Verified Allergy, Unknown, 01/25/17) Codeine (Verified Allergy, Unknown, 01/25/17) Hydrocodone (Verified Allergy, Unknown, 02/09/25) Ibuprofen (Verified Allergy, Unknown, 01/25/17) Home Meds Active Scripts Ondansetron Odt 4MG Tab (ZOFRAN PO) 4 Mg Tb, 4 MG PO Q8HP PRN for 10 Days, #30 TAB ODT TAB-DISSOLVE IN MOUTH, THEN SWALLOW Prov:NATALIIA AUSTINMY Holden DO 01/07/24 Guaifenesin (Guaifenesin) 200 Mg Tab, 200 MG PO BID PRN for 10 Days, #20 TAB Prov:NATALIIA AUSTINMY Holden DO 01/07/24 Azithromycin (Azithromycin) 250 Mg Tab, 250 MG PO DAILY MDD 500 for 5 Days, #6 TAB 0 Refills 2 TABLETS ORALLY ON DAY ONE, THEN 1 TABLET ORALLY DAILY FOR 4 DAYS Prov:ROMI AUSTIN DO 01/07/24 Methylprednisolone (Medrol Dosepak) 4 Mg Magdaleno, 4 MG PO UD, #21 TAB UAD Prov:BRAD BALDERAS MD 01/04/24 Albuterol Sulfate (VENTOLIN MDI) 90 Mcg Ih, 90 MCG IN PRN, #1 INH 0 Refills 2 inhalations every 4 to 6 hours as needed Prov:BRAD BALDERAS MD 01/04/24 Reported Medications Ticagrelor Base (Brilinta) 60 Mg Tab, 1 TAB PO BID 01/05/24 Ranolazine (Ranolazine ER) 500 Mg Tab, 1 TAB PO BID 01/05/24 Ezetimibe (Ezetimibe) 10 Mg Tab, 1 TAB PO DAILY 01/05/24 Ticagrelor Base (BRILINTA) 90 Mg Tab, 1 TAB PO BID 01/31/22 Carvedilol (Carvedilol) 3.125 Mg Tab, 1 TAB PO BID 01/31/22 Aspirin (Aspirin Low Dose) 81 Mg Tab, 1 TAB PO DAILYPRN 01/31/22 Atorvastatin Calcium (ATORVASTATIN CALCIUM) 80 Mg Tab, 1 TAB PO DAILYPRN 01/31/22 Current Medications Current Medications Medications (Trade) Dose Ordered Sig/Natacha Route PRN Reason Start Time Stop Time Status Last Admin Nicotine (Nicoderm 14MG/ 24HR) 1 patch DAILY TD 04/07/25 10:00 04/07/25 09:09 Aspirin (Ecotrin Enteric Coated Tablet) 81 mg DAILYPRN PO 04/07/25 10:00 Hold Carvedilol (Coreg Tablet) 3.125 mg BID PO 04/06/25 22:00 04/07/25 09:05 EZETIMIBE (Zetia) 10 mg DAILY PO 04/07/25 10:00 04/07/25 09:06 Ranolazine (Ranexa ER) 500 mg BID PO 04/06/25 22:00 04/07/25 09:07 Ticagrelor (Brilinta) 60 mg BID PO 04/06/25 22:00 04/07/25 13:44 Atorvastatin Calcium (Lipitor) 80 mg HS PO 04/06/25 22:00 04/06/25 23:20 Vital Signs Vital Signs Date Time Temp Pulse Resp B/P (MAP) Pulse Ox O2 Delivery O2 Flow Rate FiO2 04/07/25 16:41 97.5 64 16 127/72 (90) 95 97.5 04/07/25 08:00 Room Air* 0 21 Physical Exam General Appearance: Alert, Oriented X3, Cooperative, No acute distress HEENT: Atraumatic, PERRLA, EOMI, Mucous membrane moist/pink Respiratory: Clear to auscultation, Normal air movement Cardiovascular: Regular rate, Normal S1, Normal S2, No murmurs, no chest wall tenderness Abdominal: Normal bowel sounds, Soft, No tenderness, No hepatospenomegaly, No masses Extremities: No clubbing, No cyanosis, No edema, Normal pulses, No tenderness/swelling Skin: No rashes, No breakdown, No significant lesion Neuro: Normal gait, Normal speech, Strength at 5/5 X4 ext, Normal tone, Sensation intact, Cranial nerves 3-12 NL, Reflexes 2+ Psych/Mental Status: Mental status NL, Mood NL Labs/Diagnostic Data Labs Test 04/07/25 05:29 04/06/25 10:42 04/06/25 05:53 04/06/25 05:00 Range/Units White Blood Count 3.8 L 4.4-10.8 10^3/uL Red Blood Count 4.43 4.0-5.20 10^6/uL Hemoglobin 13.1 12.2-16.2 g/dL Hematocrit 38.1 36.0-46.0 % Mean Corpuscular Volume 86.0 80.0-100.0 fL Mean Corpuscular Hemoglobin 29.5 28.0-32.0 pg Mean Corpuscular Hemoglobin Concent 34.3 32.0-36.0 g/dL Red Cell Distribution Width 14.7 H 11.8-14.3 % Platelet Count 142 140-450 10^3/uL Mean Platelet Volume 8.6 6.9-10.8 fL Neutrophils (%) (Auto) 45.4 37.0-80.0 % Lymphocytes (%) (Auto) 41.3 10.0-50.0 % Monocytes (%) (Auto) 9.1 0.0-12.0 % Eosinophils (%) (Auto) 2.8 0.0-7.0 % Basophils (%) (Auto) 1.4 0.0-2.0 % Neutrophils # (Auto) 1.7 1.6-8.6 10 ^3/uL Lymphocytes # (Auto) 1.6 0.4-5.4 10 ^3/uL Monocytes # (Auto) 0.3 0-1.3 10 ^3/uL Eosinophils # (Auto) 0.1 0-0.8 10 ^3/uL Basophils # (Auto) 0.1 0-0.2 10 ^3/uL Nucleated Red Blood Cells 0.0 % Sodium Level 141 136-145 mmol/L Potassium Level 4.1 3.5-5.1 mmol/L Chloride Level 110 H 98-107 mmol/L Carbon Dioxide Level 22 20-31 mmol/L Anion Gap 9 5-15 Blood Urea Nitrogen 16 9-23 mg/dL Creatinine 0.97 0.550-1.02 mg/dL Glomerular Filtration Rate Calc 62 >90 mL/min BUN/Creatinine Ratio 16.5 10.0-20.0 Serum Glucose 93 74-106 mg/dL Calcium Level 9.1 8.7-10.4 mg/dL Total Bilirubin 0.5 0.2-1.0 mg/dL Aspartate Amino Transferase (AST) 8 <34 U/L Alanine Aminotransferase (ALT) 9 7-40 U/L Alkaline Phosphatase 75 46-116 U/L Total Protein 5.6 L 5.7-8.2 g/dL Albumin 3.5 3.2-4.8 g/dL Prothrombin Time 10.4 9.3-11.8 sec Prothrombin Time INR 0.98 0.9-1.15 Activated Partial Thromboplast Time 28.8 24.5-34.5 SEC Troponin I High Sensitivity < 3 L </=34 ng/L Hemoglobin A1c 5.4 <5.7 % A1C B-Type Natriuretic Peptide 8.02 0-100 pg/mL Triglycerides Level 153 H < 150 mg/dL Cholesterol Level 204 H < 200 mg/dL LDL Cholesterol 153 H < 100 mg/dL HDL Cholesterol 46 40-59 mg/dL Thyroid Stimulating Hormone (TSH) 1.17 0.55-4.78 uIU/mL Assessment Chest pain, likely cardiac History of coronary artery disease status post PCI Hypertension Dyslipidemia Obesity TIA Current smoker Medication nonadherence * EKGs shows normal sinus rhythm with no significant ST or T-wave changes * Serial trop I and BNP is are within normal limits * Chest x-ray shows no acute intra thoracic abnormalities * Echo shows LVEF 55-60% with mild diastolic dysfunction Plan/Recommendation (Case discussed with Dr. Cheung) * Continue aspirin, atorvastatin, carvedilol, ezetimibe and ranolazine * Discontinue the carvedilol at the moment * Cardiolite stress test tomorrow morning * Keep K above 4, and Mag above 2 * We are follow up with the patient, Rest of plan, per primary team Thank you for allowing us to participate in this patient's care. Please call if you have any questions or concerns. Plan/Recommendation pt had complex pci with me 4 years ago images reviewed pt is totally non complaint, still smoking not taking her meds, not even ASa acs ruled out pt is HIGH riskf for [place], given her total non compliance stress mpi Plan discussed with: Patient, Other (RN) YAHAIRA TELLEZ Apr 07, 2025 18:26 AMINAH CHEUNG MD Apr 07, 2025 19:20
[2025-04-07] MEDS: MELATONIN 5 MG TAB PO ONE (22:03)
[2025-04-08] VITALS (8 sets, daily range): BP systolic 116–146; BP diastolic 62–72; PULSE 45–71; RESP 17–18; TEMP 97.2–97.8; O2SAT 92–96
[2025-04-08] MEDS: REGADENOSON 0.4 MG/5 ML SYRG IV ONE ×2 (10:19→10:26)
--- NOTE | 2025-04-08 14:25 | DVHPN2 ---
Progress Note Date Seen: Apr 08, 2025 Resident Creating Document: YAHAIRA TELLEZ DASH Has the PT tested + for MRSA If YES, has PT been informed?: No Medical Necessity Reason Pt with a Central, PICC or Fol: No Subjective Review of Systems Patient is seen and examined at the bedside. Patient is feeling better since admission and do not have active complaint including chest pain. Objective vital signs Vital Sign Date Time Temp Pulse Resp B/P (MAP) Pulse Ox O2 Delivery O2 Flow Rate FiO2 04/08/25 12:39 97.8 65 18 116/62 (80) 94 97.8 04/08/25 08:00 Room Air* 0 21 Total Intake and Output 04/07/25 04/07/25 04/08/25 15:00 23:00 07:00 Intake Total 120 ml 1360 ml 400 ml Balance 120 ml 1360 ml 400 ml medications Current Medications Medications Dose Ordered Sig/Natacha Route Start Time Stop Time Status Last Admin Dose Admin Ondansetron HCl 4 mg Q4HP PRN IV 04/06/25 10:15 04/07/25 22:47 4 MG Nitroglycerin 0.4 mg Q5MINP PRN SL 04/06/25 10:15 Morphine Sulfate 2 mg Q30M PRN IV 04/06/25 10:15 Nicotine 1 patch DAILY TD 04/07/25 10:00 04/08/25 08:58 1 PATCH Aspirin 81 mg DAILYPRN PO 04/07/25 10:00 Hold Carvedilol 3.125 mg BID PO 04/06/25 22:00 04/08/25 11:46 3.125 MG EZETIMIBE 10 mg DAILY PO 04/07/25 10:00 04/08/25 08:56 10 MG Ranolazine 500 mg BID PO 04/06/25 22:00 04/08/25 11:46 500 MG Ticagrelor 60 mg BID PO 04/06/25 22:00 04/08/25 08:56 60 MG Atorvastatin Calcium 80 mg HS PO 04/06/25 22:00 04/07/25 21:59 80 MG Sodium Chloride 1,000 ml @ 75 mls/hr [id number] IV 04/06/25 11:15 04/07/25 13:55 75 MLS/HR Examination General Appearance: Alert, Oriented X3, Cooperative, No acute distress HEENT: Atraumatic, PERRLA, EOMI, Mucous membrane moist/pink Respiratory: Clear to auscultation, Normal air movement Cardiovascular: Regular rate, Normal S1, Normal S2, No murmurs, no chest wall tenderness Abdominal: Normal bowel sounds, Soft, No tenderness, No hepatospenomegaly, No masses Extremities: No clubbing, No cyanosis, No edema, Normal pulses, No tenderness/swelling Skin: No rashes, No breakdown, No significant lesion Neuro: Normal gait, Normal speech, Strength at 5/5 X4 ext, Normal tone, Sensation intact, Cranial nerves 3-12 NL, Reflexes 2+ Psych/Mental Status: Mental status NL, Mood NL laboratory and microbiology Laboratory Tests 04/07/25 05:29 Test 04/07/25 05:29 Range/Units Serum Glucose 93 74-106 mg/dL Microbiology Date/Time Source Procedure Growth Status 04/07/25 17:40 Nose MRSA Screen - Final Complete Labs and/or images reviewed: Labs reviewed by me, Image(s) reviewed by me Problem List/Assessment/Plan Problem List/Assessment/Plan Chest pain, likely cardiac Ruled out ACS History of coronary artery disease status post PCI Hypertension Dyslipidemia Obesity TIA Current smoker Medication nonadherence * EKGs shows normal sinus rhythm with no significant ST or T-wave changes * Serial trop I and BNP is are within normal limits * Chest x-ray shows no acute intra thoracic abnormalities * Echo shows LVEF 55-60% with mild diastolic dysfunction Plan/Recommendation (Case discussed with Dr. Holland) * Continue aspirin, atorvastatin, carvedilol, ezetimibe and ranolazine * Discontinue the Brilinta at the moment * Cardiolite stress test * Keep K above 4, and Mag above 2 * We are follow up with the patient, Rest of plan, per primary team Thank you for allowing us to participate in this patient's care. Please call if you have any questions or concerns. Plan discussed with: Patient, Other (RN) My Orders My Orders Orders - YAHAIRA TELLEZ RESDIFRANTZ Procedure Category Date Status Time Cardiac DIET 04/08/25 Transmitted Diet-2gna,Lofat,Lochol Lunch Dietary Evaluation Review Comments: avoid nicotine, follow cardiac diet Expected Outcomes/Goals: free from nicotine, gradual wt loss, improved nutrition related lab values YAHAIRA TELLEZ Apr 08, 2025 14:25
[2025-04-08 18:46] LABS: Urine Protein, UAD Negative (Negative)
--- NOTE | 2025-04-08 19:56 | DVHPN2 ---
Subjective In bed with no chest pain Reviewed: H&P, Labs Changes from previous H/P or p: No Changes Eyes: No Pain, No Vision change, No Conjunctivae inflammation, No Eyelid inflammation, No Other, No Redness ENT: No Ear pain, No Ear discharge, No Nose pain, No Nose discharge, No Nose congestion, No Mouth pain, No Mouth swelling, No Throat pain, No Throat swelling, No Other Cardiovascular: Chest Pain; No Palpitations, No Orthopnea, No Paroxysmal Noc. Dyspnea, No Edema, No Lt Headedness; Other (Reports chest discomfort and near- syncope, denies palpitation or orthopnea) Respiratory: No Cough, No Dry, No Shortness of breath, No SOB with excertion, No Wheezing, No Hemoptysis, No Pleuritic Pain, No Sputum, No Other Gastrointestinal: No Nausea, No Vomiting, No Abdominal Pain, No Diarrhea, No Constipation, No Melena, No Hematochezia, No Other Genitourinary: No Dysuria, No Frequency, No Incontinence, No Hematuria, No Retention, No Other Musculoskeletal: No other, No neck pain, No shoulder pain, No arm pain, No back pain, No hand pain, No leg pain, No foot pain Skin: No Rash, No Lesions, No Jaundice, No Bruising, No Other Objective Vitals Vital Signs Date Time Temp Pulse Resp B/P (MAP) Pulse Ox O2 Delivery O2 Flow Rate FiO2 04/08/25 16:54 97.7 63 17 132/71 (91) 95 97.7 04/08/25 08:00 Room Air* 0 21 Intake/Output Intake and Output 04/08/25 07:00 Intake Total 1880 ml Balance 1880 ml Intake Oral 1430 ml IV Total 450 ml # Voids 12 # Bowel Movements 1 General Appearance: Alert, Oriented X3 HEENT: Atraumatic Lungs: Clear to auscultation Cardiovascular: Regular rate, Normal S1, Normal S2 Medications Current Medications Medications Dose Ordered Sig/Natacha Route Start Time Stop Time Status Last Admin Dose Admin Ondansetron HCl 4 mg Q4HP PRN IV 04/06/25 10:15 04/07/25 22:47 4 MG Nitroglycerin 0.4 mg Q5MINP PRN SL 04/06/25 10:15 Morphine Sulfate 2 mg Q30M PRN IV 04/06/25 10:15 Nicotine 1 patch DAILY TD 04/07/25 10:00 04/08/25 08:58 1 PATCH Aspirin 81 mg DAILYPRN PO 04/07/25 10:00 Hold Carvedilol 3.125 mg BID PO 04/06/25 22:00 04/08/25 11:46 3.125 MG EZETIMIBE 10 mg DAILY PO 04/07/25 10:00 04/08/25 08:56 10 MG Ranolazine 500 mg BID PO 04/06/25 22:00 04/08/25 11:46 500 MG Ticagrelor 60 mg BID PO 04/06/25 22:00 04/08/25 08:56 60 MG Atorvastatin Calcium 80 mg HS PO 04/06/25 22:00 04/07/25 21:59 80 MG Sodium Chloride 1,000 ml @ 75 mls/hr [id number] IV 04/06/25 11:15 04/07/25 13:55 75 MLS/HR Laboratory Results Laboratory Tests 04/07/25 05:29 Urinalysis Test 04/08/25 18:20 Urine Color Light-yellow (Yellow) Urine Clarity Clear (Clear) Urine pH 6.5 (5.0-9.0) Urine Specific [place] 1.016 (1.001-1.035) Urine Protein Negative (Negative) Urine Ketones Negative (Negative) Urine Blood Negative /uL (Negative) Urine Nitrite Negative (Negative) Urine Bilirubin Negative (Negative) Urine Urobilinogen 2 mg/dL (Negative) H Urine Leukocyte Esterase Negative /uL (Negative) Urine RBC 1 /hpf (0 - 4) Urine Microscopic WBC 1 /HPF (0-5) Urine Squamous Epithelial Cells Few /hpf (<5) Urine Bacteria None seen /hpf (None Seen) Urine Mucus Few (None Seen) Urine Glucose Normal mg/dL (Normal) Microbiology Microbiology Date/Time Source Procedure Growth Status 04/07/25 17:40 Nose MRSA Screen - Final Complete Assessment/Plan Assessment/Plan # acute chest pain to rule out progressive CAD, heart score 6 # CAD s/p PCI in the LAD x3 MEGHNA in 2020 # near-syncope Cardiology consult with Dr. 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
--- NOTE | 2025-04-08 23:02 | DVHPN2 ---
Progress Note - Dictate Date Seen: Apr 08, 2025 Has the PT tested + for MRSA If YES, has PT been informed?: No Medical Necessity Reason Pt with a Central, PICC or Fol: No Subjective Patient was seen and evaluated in follow up. Patient is feeling better since admission. Shes does does not have active complaint including chest pain. EKGs shows normal sinus rhythm with no significant ST or T-wave changes. Serial trop I and BNP is are within normal limits. Echo shows LVEF 55-60% with mild diastolic dysfunction. Telemetry reviewed. vital signs Vital Sign Date Time Temp Pulse Resp B/P (MAP) Pulse Ox O2 Delivery O2 Flow Rate FiO2 04/08/25 21:55 130/70 04/08/25 21:00 97.7 71 17 95 97.7 04/08/25 20:00 Room Air* 0 21 Total Intake and Output 04/07/25 04/07/25 04/08/25 15:00 23:00 07:00 Intake Total 120 ml 1360 ml 400 ml Balance 120 ml 1360 ml 400 ml medications Current Medications Medications Dose Ordered Sig/Natacha Route Start Time Stop Time Status Last Admin Dose Admin Ondansetron HCl 4 mg Q4HP PRN IV 04/06/25 10:15 04/07/25 22:47 4 MG Nitroglycerin 0.4 mg Q5MINP PRN SL 04/06/25 10:15 Morphine Sulfate 2 mg Q30M PRN IV 04/06/25 10:15 Nicotine 1 patch DAILY TD 04/07/25 10:00 04/08/25 08:58 1 PATCH Aspirin 81 mg DAILYPRN PO 04/07/25 10:00 Hold Carvedilol 3.125 mg BID PO 04/06/25 22:00 04/08/25 21:55 3.125 MG EZETIMIBE 10 mg DAILY PO 04/07/25 10:00 04/08/25 08:56 10 MG Ranolazine 500 mg BID PO 04/06/25 22:00 04/08/25 21:56 500 MG Ticagrelor 60 mg BID PO 04/06/25 22:00 04/08/25 22:00 60 MG Atorvastatin Calcium 80 mg HS PO 04/06/25 22:00 04/08/25 21:55 80 MG Sodium Chloride 1,000 ml @ 75 mls/hr [id number] IV 04/06/25 11:15 04/07/25 13:55 75 MLS/HR objective CARDIOVASCULAR GENERAL: Alert and oriented x 3. No acute distress. EYES: PERRL, EOMI. Anicteric. HENT: Moist mucous membranes. LUNGS: Clear to auscultation bilaterally. Regular rate and rhythm. ABDOMEN: Soft, non-tender and non-distended. EXTREMITIES: No edema. NEUROLOGIC: No focal neurological deficits. SKIN: Warm, dry. laboratory and microbiology Laboratory Tests 04/07/25 05:29 Test 04/07/25 05:29 Range/Units Serum Glucose 93 74-106 mg/dL Problem List Chest pain, likely cardiac. Ruled out ACS. History of coronary artery disease status post PCI. Hypertension. Dyslipidemia. Obesity. TIA. Current smoker. Medication nonadherence. Assessment/Plan Continued all current supportive medical care. Patient has been seen by René Martinez, resident on my behalf. We have discussed the plan with the patient. Continue aspirin, atorvastatin, carvedilol, ezetimibe and ranolazine. Discontinue the Brilinta at the moment. Cardiolite stress test. Keep K above 4, and Mag above 2. We are follow up with the patient, Rest of plan, per primary team. Additional plan as per the hospital course. Dietary Evaluation Review Comments: avoid nicotine, follow cardiac diet Expected Outcomes/Goals: free from nicotine, gradual wt loss, improved nutrition related lab values Plan discussed with: Patient SUSIE ARAUZ MD Apr 08, 2025 23:02
[2025-04-09 01:00] VITALS: BP 164/71; PULSE 67; RESP 18; TEMP 97.9; O2SAT 95
[2025-04-09 05:00] VITALS: BP 114/66; PULSE 71; RESP 16; TEMP 97.4; O2SAT 94
[2025-04-09 08:00] VITALS: PULSE 63; RESP 18; O2SAT 92
[2025-04-09 09:00] VITALS: BP 136/80; PULSE 62; RESP 18; TEMP 97; O2SAT 96
--- NOTE | 2025-04-09 11:01 | DVHPN2 ---
Progress Note Date Seen: Apr 09, 2025 Resident Creating Document: YAHAIRA TELLEZ DASH Has the PT tested + for MRSA If YES, has PT been informed?: No Medical Necessity Reason Pt with a Central, PICC or Fol: No Subjective Review of Systems Patient seen and examined at the bedside. Patient is feeling better since admission does not have any active complaint including chest pain. Patient reports: No new complaints, Feels better Changes from previous H/P or p: Changes Objective vital signs Vital Sign Date Time Temp Pulse Resp B/P (MAP) Pulse Ox O2 Delivery O2 Flow Rate FiO2 04/09/25 10:56 62 111/67 04/09/25 09:00 97.0 18 96 97.0 04/08/25 20:00 Room Air* 0 21 Total Intake and Output 04/08/25 04/08/25 04/09/25 15:00 23:00 07:00 Intake Total 825 ml 450 ml Balance 825 ml 450 ml medications Current Medications Medications Dose Ordered Sig/Natacha Route Start Time Stop Time Status Last Admin Dose Admin Ondansetron HCl 4 mg Q4HP PRN IV 04/06/25 10:15 04/07/25 22:47 4 MG Nitroglycerin 0.4 mg Q5MINP PRN SL 04/06/25 10:15 Morphine Sulfate 2 mg Q30M PRN IV 04/06/25 10:15 Nicotine 1 patch DAILY TD 04/07/25 10:00 04/09/25 10:58 1 PATCH Aspirin 81 mg DAILYPRN PO 04/07/25 10:00 Hold Carvedilol 3.125 mg BID PO 04/06/25 22:00 04/09/25 10:56 3.125 MG EZETIMIBE 10 mg DAILY PO 04/07/25 10:00 04/09/25 10:57 10 MG Ranolazine 500 mg BID PO 04/06/25 22:00 04/09/25 10:55 500 MG Ticagrelor 60 mg BID PO 04/06/25 22:00 04/09/25 10:57 60 MG Atorvastatin Calcium 80 mg HS PO 04/06/25 22:00 04/08/25 21:55 80 MG Sodium Chloride 1,000 ml @ 75 mls/hr [id number] IV 04/06/25 11:15 04/07/25 13:55 75 MLS/HR Examination General Appearance: Alert, Oriented X3, Cooperative, No acute distress HEENT: Atraumatic, PERRLA, EOMI, Mucous membrane moist/pink Respiratory: Clear to auscultation, Normal air movement Cardiovascular: Regular rate, Normal S1, Normal S2, No murmurs, no chest wall tenderness Abdominal: Normal bowel sounds, Soft, No tenderness, No hepatospenomegaly, No masses Extremities: No clubbing, No cyanosis, No edema, Normal pulses, No tenderness/swelling Skin: No rashes, No breakdown, No significant lesion Neuro: Normal gait, Normal speech, Strength at 5/5 X4 ext, Normal tone, Sensation intact, Cranial nerves 3-12 NL, Reflexes 2+ Psych/Mental Status: Mental status NL, Mood NL laboratory and microbiology Laboratory Tests 04/07/25 05:29 Test 04/07/25 05:29 Range/Units Serum Glucose 93 74-106 mg/dL Microbiology Date/Time Source Procedure Growth Status 04/07/25 17:40 Nose MRSA Screen - Final Complete Labs and/or images reviewed: Labs reviewed by me, Image(s) reviewed by me Problem List/Assessment/Plan Problem List/Assessment/Plan Chest pain, likely cardiac Ruled out ACS History of coronary artery disease status post PCI Hypertension Dyslipidemia Obesity TIA Current smoker Medication nonadherence * EKGs shows normal sinus rhythm with no significant ST or T-wave changes * Serial trop I and BNP is are within normal limits * Chest x-ray shows no acute intra thoracic abnormalities * Echo shows LVEF 55-60% with mild diastolic dysfunction Plan/Recommendation (Case discussed with Dr. Holland) * Discharge plan: Continue aspirin, atorvastatin, carvedilol, ezetimibe, ranolazine and Brilinta * Cardiolite stress test shows no ischemic changes * Keep K above 4, and Mag above 2 * We sign of the patient, Rest of plan per primary team Thank you for allowing us to participate in this patient's care. Please call if you have any questions or concerns. Plan discussed with: Patient, Other (RN) My Orders My Orders Orders - YAHAIRA TELLEZ RESDIENT Procedure Category Date Status Time Cardiac DIET 04/08/25 Transmitted Diet-2gna,Lofat,Lochol Lunch Dietary Evaluation Review Comments: avoid nicotine, follow cardiac diet Expected Outcomes/Goals: free from nicotine, gradual wt loss, improved nutrition related lab values YAHAIRA TELLEZ Apr 09, 2025 11:01
[2025-04-09 12:24] VITALS: BP 109/73; PULSE 59; RESP 17; TEMP 97.9; O2SAT 94
--- NOTE | 2025-04-09 22:21 | DVHPN2 ---
Progress Note - Dictate Date Seen: Apr 09, 2025 Has the PT tested + for MRSA If YES, has PT been informed?: No Medical Necessity Reason Pt with a Central, PICC or Fol: No Subjective Patient was seen and evaluated in follow up. Cardiolite stress test shows no ischemic changes. Patient is cardiac stable for discharge. Telemetry reviewed. vital signs Vital Sign Date Time Temp Pulse Resp B/P (MAP) Pulse Ox O2 Delivery O2 Flow Rate FiO2 04/09/25 12:24 97.9 59 17 109/73 (85) 94 97.9 04/09/25 11:20 Room Air* 0 21 Total Intake and Output 04/08/25 04/08/25 04/09/25 15:00 23:00 07:00 Intake Total 825 ml 450 ml Balance 825 ml 450 ml objective CARDIOVASCULAR GENERAL: Alert and oriented x 3. No acute distress. EYES: PERRL, EOMI. Anicteric. HENT: Moist mucous membranes. LUNGS: Clear to auscultation bilaterally. Regular rate and rhythm. ABDOMEN: Soft, non-tender and non-distended. EXTREMITIES: No edema. NEUROLOGIC: No focal neurological deficits. SKIN: Warm, dry. laboratory and microbiology Laboratory Tests 04/07/25 05:29 Test 04/07/25 05:29 Range/Units Serum Glucose 93 74-106 mg/dL Problem List Chest pain, likely cardiac. Ruled out ACS. History of coronary artery disease status post PCI. Hypertension. Dyslipidemia. Obesity. TIA. Current smoker. Medication nonadherence. Assessment/Plan Continued all current supportive medical care. Patient has been seen by René Martinez, resident on my behalf. We have discussed the plan with the patient. Continue aspirin, atorvastatin, carvedilol, ezetimibe, ranolazine and Brilinta. Additional plan as per the hospital course. Dietary Evaluation Review Comments: avoid nicotine, follow cardiac diet Expected Outcomes/Goals: free from nicotine, gradual wt loss, improved nutrition related lab values Plan discussed with: Patient SUSIE ARAUZ MD Apr 09, 2025 16:05
--- NOTE | 2025-04-10 18:43 | DVHSR ---
APPROVED REPORT Exam: Nuclear Stress Test Indication: CAD Stress Tech: Jennifer Arcos Ht: 5 ft 7 in Wt: 198 lbs BSA: 2.01 m2 HR: 60 bpm BP: 127/74 mmHg BMI: 31.00 Rhythm: NSR Medical History Medical History: CAD S/P PCI, HTN, DLD, TIA, SMOKER, EF 55-60% Allergies: IBUPROFEN, HYDROCODONE, CEPHALEXIN, CODINE Stress Test Details Stress Test: Pharmacologic stress testing performed using 0.4 mg of regadenoson per 5 mL given IV ov er 10 seconds. Reason for pharmacologic stress test: CAD. HR Resting HR: 60 bpmMax Heart Rate (APMHR): 148.797738 bpm Max HR Achieved: 96 bpmTarget HR (85% APMHR): 125.832640 bpm % of APMHR: 64.86 Recovery HR: 82 bpm BP Resting BP: 127/74 mmHg Recovery BP: 125/64 mmHg ECG Resting ECG: NSR Clinical Reason for Termination: Completed protocol Stress ECG Conclusion lvef 67% normal perfusion scan NM EXAM: Myocardial Perfusion REST/STRESS Imaging Protocol: Rest Tc-99m/Stress Tc-99m 1 day Resting Data Rest SPECT myocardial perfusion imaging was performed in supine position 60 minutes following the int ravenous injection of 11.0 mCi of Tc-99m Sestamibi. Time of rest injection: 08:35 Date: 04/08/2025 Time of rest imagin:35 Date: 04/08/2025 Administration Route: IV Administration Site: Left Arm Pharmacologic Stress Pharmacologic stress test was performed by injecting Regadenoson 0.4 mg IV push followed by the intra venous injection of 32.7 mCi of Tc-99m Sestamibi. Time of stress injection: 10:15 Date: 04/08/2025 Time of stress imagin:15 Date: 04/08/2025 Administration Route: IV Administration Site: Left Arm Gated Stress SPECT was performed 60 minutes after stress injection. The images were gated to evaluate regional wall motion and calculate left ventricular ejection fracti on. Stress only was performed in the Supine position. Nuclear Conclusion Nuclear Findings: negative for ischemia lvef 67% normal perfusion scan
--- NOTE | 2025-04-20 06:28 | DVHDS2 ---
Discharge Summary Date of Admission Apr 06, 2025 at 10:11 Date of Discharge: Apr 09, 2025 Labs/Diagnostic Data: Laboratory Results Test 04/08/25 18:20 04/07/25 05:29 04/06/25 10:42 04/06/25 05:53 Urine Color Light-yellow (Yellow) Urine Clarity Clear (Clear) Urine pH 6.5 (5.0-9.0) Urine Specific [place] 1.016 (1.001-1.035) Urine Protein Negative (Negative) Urine Ketones Negative (Negative) Urine Blood Negative /uL (Negative) Urine Nitrite Negative (Negative) Urine Bilirubin Negative (Negative) Urine Urobilinogen 2 mg/dL (Negative) Urine Leukocyte Esterase Negative /uL (Negative) Urine RBC 1 /hpf (0 - 4) Urine Microscopic WBC 1 /HPF (0-5) Urine Squamous Epithelial Cells Few /hpf (<5) Urine Bacteria None seen /hpf (None Seen) Urine Mucus Few (None Seen) Urine Glucose Normal mg/dL (Normal) White Blood Count 3.8 10^3/uL (4.4-10.8) Red Blood Count 4.43 10^6/uL (4.0-5.20) Hemoglobin 13.1 g/dL (12.2-16.2) Hematocrit 38.1 % (36.0-46.0) Mean Corpuscular Volume 86.0 fL (80.0-100.0) Mean Corpuscular Hemoglobin 29.5 pg (28.0-32.0) Mean Corpuscular Hemoglobin Concent 34.3 g/dL (32.0-36.0) Red Cell Distribution Width 14.7 % (11.8-14.3) Platelet Count 142 10^3/uL (140-450) Mean Platelet Volume 8.6 fL (6.9-10.8) Neutrophils (%) (Auto) 45.4 % (37.0-80.0) Lymphocytes (%) (Auto) 41.3 % (10.0-50.0) Monocytes (%) (Auto) 9.1 % (0.0-12.0) Eosinophils (%) (Auto) 2.8 % (0.0-7.0) Basophils (%) (Auto) 1.4 % (0.0-2.0) Neutrophils # (Auto) 1.7 10 ^3/uL (1.6-8.6) Lymphocytes # (Auto) 1.6 10 ^3/uL (0.4-5.4) Monocytes # (Auto) 0.3 10 ^3/uL (0-1.3) Eosinophils # (Auto) 0.1 10 ^3/uL (0-0.8) Basophils # (Auto) 0.1 10 ^3/uL (0-0.2) Nucleated Red Blood Cells 0.0 % Sodium Level 141 mmol/L (136-145) Potassium Level 4.1 mmol/L (3.5-5.1) Chloride Level 110 mmol/L (98-107) Carbon Dioxide Level 22 mmol/L (20-31) Anion Gap 9 (5-15) Blood Urea Nitrogen 16 mg/dL (9-23) Creatinine 0.97 mg/dL (0.550-1.02) Glomerular Filtration Rate Calc 62 mL/min (>90) BUN/Creatinine Ratio 16.5 (10.0-20.0) Serum Glucose 93 mg/dL (74-106) Calcium Level 9.1 mg/dL (8.7-10.4) Total Bilirubin 0.5 mg/dL (0.2-1.0) Aspartate Amino Transferase (AST) 8 U/L (<34) Alanine Aminotransferase (ALT) 9 U/L (7-40) Alkaline Phosphatase 75 U/L (46-116) Total Protein 5.6 g/dL (5.7-8.2) Albumin 3.5 g/dL (3.2-4.8) Prothrombin Time 10.4 sec (9.3-11.8) Prothrombin Time INR 0.98 (0.9-1.15) Activated Partial Thromboplast Time 28.8 SEC (24.5-34.5) Troponin I High Sensitivity < 3 ng/L (</=34) Test 04/06/25 05:00 Hemoglobin A1c 5.4 % A1C (<5.7) B-Type Natriuretic Peptide 8.02 pg/mL (0-100) Triglycerides Level 153 mg/dL (< 150) Cholesterol Level 204 mg/dL (< 200) LDL Cholesterol 153 mg/dL (< 100) HDL Cholesterol 46 mg/dL (40-59) Thyroid Stimulating Hormone (TSH) 1.17 uIU/mL (0.55-4.78) Other Laboratory Tests 04/07/25 05:29 Brief Hx & Hospital Course: A 74-year-old female with past medical history of CAD status post PTCA with three drug-eluting stents to the LAD in [address] Holland, hypertension, hyperlipidemia, obesity, transient ischemic attack, and tobacco use, presents to the emergency department after being transferred from [facility] for further evaluation of chest pain. The patient initially presented to [facility] yesterday after experiencing chest pain while walking in the store, accompanied by flushing and a near-syncope episode. Initial evaluation at [facility] revealed normal serial troponins and unremarkable chest x-ray. However due to ongoing symptoms and concern for possible ischemia she was transferred for further workup. In our ED, a 12 lead ECG showed normal sinus rhythm with no acute ischemic changes. Several troponin levels remained within normal limits, BNP was more mild and repeat chest x-ray was unremarkable. Had stress test which was negative seen by cardiology and signed off Condition at Discharge: Good Final Diagnosis/Problems List # acute chest pain to rule out progressive CAD, heart score 6 # CAD s/p PCI in the LAD x3 MEGHNA in 2020 # near-syncope # LOREE on CKD due to [facility] Discharge Disposition: Home Discharge Instruct/Medications Diet: Regular Activity: No Restrictions, As Tolerated Follow Up/Referral: PCP and cardiology in 7 days Medications: same home medications Scheduled Albuterol Sulfate (Ventolin Mdi), 90 MCG IN PRN Aspirin (Aspirin Low Dose), 1 TAB PO DAILYPRN, (Reported) Atorvastatin Calcium (Atorvastatin Calcium), 1 TAB PO DAILYPRN, (Reported) Azithromycin (Azithromycin), 250 MG PO DAILY Carvedilol (Carvedilol), 1 TAB PO BID, (Reported) Ezetimibe (Ezetimibe), 1 TAB PO DAILY, (Reported) Methylprednisolone (Medrol Dosepak), 4 MG PO UD Ranolazine (Ranolazine ER), 1 TAB PO BID, (Reported) Ticagrelor Base (Brilinta), 1 TAB PO BID, (Reported) Ticagrelor Base (Brilinta), 1 TAB PO BID, (Reported) Scheduled PRN Guaifenesin (Guaifenesin), 200 MG PO BID PRN Ondansetron Odt 4MG Tab (Zofran Po), 4 MG PO Q8HP PRN Discharge Statement: "Patient was advised to return to the ER or call 911 if any headaches, dizziness, shortness of breath, chest pain, abdominal pain, bleeding, fevers, or worsening of medical condition. Patient was counseled about treatment plan, medications, possible side effects, patientverbalized understanding. All questions were answered to the best of my ability. This discharge took greater then 30 minutes in planning, reviewing documentation, counseling the patient, and discussing with other team members." ASSESSMENT ASSESSMENT Assessment acute coronary syndrome Date of Service: Apr 09, 2025 Billing Provider: ROBBIE GARRETT MD Common Visit Codes: 92973-UTZ/OBS DISCH DAY >30min ROBBIE GARRETT MD Apr 20, 2025 06:28
== END 2025-04-09 15:21 | disposition left against medical advice (07) | DRG 302 ==
LOC: ER 04:27 → EDBD 04:27 → OVERFLOW 10:11 → TELE-EAST 21:51
PROVIDERS: ADMIT Hospitalist; ATTEND Hospitalist
DX: I25.10 Atherosclerotic heart disease of native coronary artery without angina pectoris (principal); N17.0 Acute kidney failure with tubular necrosis; G45.9 Transient cerebral ischemic attack, unspecified; Z53.29 Procedure and treatment not carried out because of patient's decision for other reasons; E78.5 Hyperlipidemia, unspecified; N18.9 Chronic kidney disease, unspecified; E66.9 Obesity, unspecified; I12.9 Hypertensive chronic kidney disease with stage 1 through stage 4 chronic kidney disease, or unspecified chronic kidney disease; F17.210 Nicotine dependence, cigarettes, uncomplicated; Z88.1 Allergy status to other antibiotic agents; Z88.5 Allergy status to narcotic agent; Z88.3 Allergy status to other anti-infective agents; Z79.2 Long term (current) use of antibiotics; Z79.82 Long term (current) use of aspirin; Z79.899 Other long term (current) drug therapy; Z88.6 Allergy status to analgesic agent; Z90.710 Acquired absence of both cervix and uterus; Z98.891 History of uterine scar from previous surgery; Z90.49 Acquired absence of other specified parts of digestive tract; Z71.6 Tobacco abuse counseling; Z95.5 Presence of coronary angioplasty implant and graft; Z91.148 Patient's other noncompliance with medication regimen for other reason; Z86.73 Personal history of transient ischemic attack (TIA), and cerebral infarction without residual deficits; Z68.31 Body mass index [BMI] 31.0-31.9, adult
CPT/HCPCS: 36415; 71045; 78452; 80053; 80061; 81001; 83036; 83880; 84443; 84484; 85025; 85610; 85730; 87081; 93005; 93017; 93306; 96360; G0378; J2405

== ENCOUNTER 2025-06-20 16:37 | Emergency (ER) | payer MEDICAID, OTHER ==
[~2025-06-20] VITALS: Ht 162.6 cm; Wt 81.8 kg
--- NOTE | 2025-06-20 16:52 | ED.PDOC ---
HPI Comments 74 y.o female with PMHx of [place] and PTCA x 3, presents to the ED via EMS for a chief complaint of substernal chest paint that started today while arguing with her sone. Patient received 324mg ASA and NTG x1 en route in which she states relieved pain and presents chest pain free upon ED arrival. Patient mentions she is not compliant with heart medication at this time, unknown what type of medications. She denies any other symptoms or recent illnesses. Vital signs were stable. Patient did not look toxic. Chief Complaint: Chest Pain Time Seen by MD: 16:46 Primary Care Provider: ? Reviewed Notes: Nurses Notes, Scientific Diver Notes, Medications, Allergies Allergies: Coded Allergies: Cephalexin (Verified Allergy, Unknown, 01/25/17) Codeine (Verified Allergy, Unknown, 01/25/17) Hydrocodone (Verified Allergy, Unknown, 02/09/25) Ibuprofen (Verified Allergy, Unknown, 01/25/17) Home Meds Active Scripts Ondansetron Odt 4MG Tab (ZOFRAN PO) 4 Mg Tb, 4 MG PO Q8HP PRN for 10 Days, #30 TAB ODT TAB-DISSOLVE IN MOUTH, THEN SWALLOW Prov:AUSTINNATALIIAROMI Holden DO 01/07/24 Guaifenesin (Guaifenesin) 200 Mg Tab, 200 MG PO BID PRN for 10 Days, #20 TAB Prov:AUSTINROMI Holden JUÁREZ 01/07/24 Azithromycin (Azithromycin) 250 Mg Tab, 250 MG PO DAILY MDD 500 for 5 Days, #6 TAB 0 Refills 2 TABLETS ORALLY ON DAY ONE, THEN 1 TABLET ORALLY DAILY FOR 4 DAYS Prov:NATALIIA AUSTNIMY Holden JUÁREZ 01/07/24 Methylprednisolone (Medrol Dosepak) 4 Mg Magdaleno, 4 MG PO UD, #21 TAB UAD Prov:BRAD BALDERAS MD 01/04/24 Albuterol Sulfate (VENTOLIN MDI) 90 Mcg Ih, 90 MCG IN PRN, #1 INH 0 Refills 2 inhalations every 4 to 6 hours as needed Prov:BRAD BALDERAS MD 01/04/24 Reported Medications Ticagrelor Base (Brilinta) 60 Mg Tab, 1 TAB PO BID 01/05/24 Ranolazine (Ranolazine ER) 500 Mg Tab, 1 TAB PO BID 01/05/24 Ezetimibe (Ezetimibe) 10 Mg Tab, 1 TAB PO DAILY 01/05/24 Ticagrelor Base (BRILINTA) 90 Mg Tab, 1 TAB PO BID 01/31/22 Carvedilol (Carvedilol) 3.125 Mg Tab, 1 TAB PO BID 01/31/22 Aspirin (Aspirin Low Dose) 81 Mg Tab, 1 TAB PO DAILYPRN 01/31/22 Atorvastatin Calcium (ATORVASTATIN CALCIUM) 80 Mg Tab, 1 TAB PO DAILYPRN 01/31/22 Information Source: Patient, Emergency Med Personnel Mode of Arrival: EMS Severity: Moderate Timing: Hours Duration: Hours Prehospital treatment: 12 Lead EKG, ASA, Gas Meter Repairer, NTG Location: Substernal Radiation: No Radiation Quality: Sharp Onset: At Rest Cardiac Risk Factors: HTN PE Risk Factors: None History of: [place] Modifying Factors: Nothing Associated Signs and Symptoms: None Past Medical History PAST MEDICAL HISTORY: CAD, High Lipids, HTN, [place], TIA Surgical History: Cholecystectomy, , Hysterectomy, PTCA 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 History: Endometriosis Family History Family History: Reviewed,noncontributory to illness Social History Smoker: Non-Smoker, Less Than 1 Pack/Day Alcohol: Denies ETOH Use Drugs: Denies Drug Use Lives In: Home Constitutional: denies: chills, diaphoresis, fatigue, fever, malaise, sweats, weakness, others EENTM: denies: blurred vision, double vision, ear bleeding, ear discharge, ear drainage, ear pain, ear ringing, eye pain, eye redness, hearing loss, mouth pain, mouth swelling, nasal discharge, nose bleeding, nose congestion, nose pain, photophobia, tearing, throat pain, throat swelling, voice changes, others Respiratory: denies: cough, hemoptysis, orthopnea, SOB at rest, shortness of breath, SOB with excertion, stridor, wheezing, others Cardiovascular: reports: chest pain; denies: dizzy spells, diaphoresis, Dyspnea on exertion, edema, irregular heart beat, left arm pain, lightheadedness, palpitations, PND, syncope, others Gastrointestinal: denies: abdomen distended, abdominal pain, blood streaked bowels, constipated, diarrhea, dysphagia, difficulty swallowing, hematemesis, melena, nausea, poor appetite, poor fluid intake, rectal bleeding, rectal pain, vomiting, others Genitourinary: denies: abnormal vagina bleeding, burning, dyspareunia, dysuria, flank pain, frequency, hematuria, incontinence, pain, , vagina discharge, urgency, others Neurological: denies: dizziness, fainting, headache, left sided numbness, left sided weakness, numbness, paresthesia, pre-existing deficit, right sided numbness, right sided weakness, seizure, speech problems, tingling, tremors, weakness, others Musculoskeletal: denies: back pain, gout, joint pain, joint swelling, muscle pain, muscle stiffness, neck pain, others Integumetry: denies: bruises, change in color, change in hair/nails, dryness, laceration, lesions, lumps, rash, wounds, others Allergic/Immunocompromised: denies: Difficulty Healing, Frequent Infections, Hives, Itching, others Hematologic/Lymphatic: denies: anemia, blood clots, easy bleeding, easy bruising, swollen glands, others Endocrine: denies: excessive hunger, excessive sweating, excessive thirst, excessive urination, flushing, intolerance to cold, intolerance to heat, unexplained weight gain, unexplained weight loss, others Psychiatric: denies: anxiety, bipolar disorder, depression, hopeless, panic disorder, schizophrenia, sleepless, suicidal, others All Other Systems: Reviewed and Negative Physical Exam General Appearance: No Apparent Distress (Patient was in no distress at time of evaluation.), Normal HEENT: Normal ENT Inspection, Pharynx Normal, TMs Normal Neck: Full Range of Motion, Non-Tender, Normal, Normal Inspection Respiratory: Chest Non-Tender, Lungs Clear, No Accessory Muscle Use, No Respiratory Distress, Normal Breath Sounds Cardiovascular: No Edema, No JVD, No Murmur, No Gallop, Normal Peripheral Pulses, Regular Rate/Rhythm Breast Exam: Deferred Gastrointestinal: No Organomegaly, Non Tender, No Pulsatile Mass, Normal Bowel Sounds, Soft Genitalia: Deferred Pelvic: Deferred Rectal: Deferred Extremities: No calf tenderness, Normal capillary refill, Normal inspection, Normal range of motion, Non-tender, No pedal edema Neurologic: Alert, No Motor Deficits, Normal Affect, Normal Mood, No Sensory Deficits Cerebellar Function: NOT DONE Reflexes: NOT DONE Skin: Dry, Normal Color, Warm Lymphatic: No Adenopathy Was a procedure done? Was a procedure done?: No CP Differential Dx Differential Diagnosis: A-fib, A-Flutter, Anxiety / Panic Attack, AV Block 1st Degree, N/A Differential Diagnosis: Angina, Chest Wall Pain, Cholelithiasis, Costochondritis, Myocardial Infarction, Pericarditis X-Ray, Labs, Meds, VS Vital Signs Date Time Temp Pulse Resp B/P (MAP) Pulse Ox O2 Delivery O2 Flow Rate FiO2 06/20/25 19:25 77 06/20/25 16:43 98.2 80 18 129/66 95 98.2 06/20/25 16:40 76 Lab Test 06/20/25 17:50 06/20/25 16:55 Range/Units Troponin I High Sensitivity < 3 L < 3 L </=34 ng/L White Blood Count 5.5 4.4-10.8 10^3/uL Red Blood Count 5.16 4.0-5.20 10^6/uL Hemoglobin 15.3 12.2-16.2 g/dL Hematocrit 44.4 36.0-46.0 % Mean Corpuscular Volume 86.1 80.0-100.0 fL Mean Corpuscular Hemoglobin 29.6 28.0-32.0 pg Mean Corpuscular Hemoglobin Concent 34.4 32.0-36.0 g/dL Red Cell Distribution Width 14.8 H 11.8-14.3 % Platelet Count 217 140-450 10^3/uL Mean Platelet Volume 8.3 6.9-10.8 fL Neutrophils (%) (Auto) 58.2 37.0-80.0 % Lymphocytes (%) (Auto) 32.2 10.0-50.0 % Monocytes (%) (Auto) 7.0 0.0-12.0 % Eosinophils (%) (Auto) 1.7 0.0-7.0 % Basophils (%) (Auto) 0.9 0.0-2.0 % Neutrophils # (Auto) 3.2 1.6-8.6 10 ^3/uL Lymphocytes # (Auto) 1.8 0.4-5.4 10 ^3/uL Monocytes # (Auto) 0.4 0-1.3 10 ^3/uL Eosinophils # (Auto) 0.1 0-0.8 10 ^3/uL Basophils # (Auto) 0.1 0-0.2 10 ^3/uL Nucleated Red Blood Cells 0.1 % Sodium Level 144 136-145 mmol/L Potassium Level 3.9 3.5-5.1 mmol/L Chloride Level 109 H 98-107 mmol/L Carbon Dioxide Level 26 20-31 mmol/L Anion Gap 9 5-15 Blood Urea Nitrogen 13 9-23 mg/dL Creatinine 1.09 H 0.550-1.02 mg/dL Glomerular Filtration Rate Calc 54 >90 mL/min BUN/Creatinine Ratio 11.9 10.0-20.0 Serum Glucose 96 74-106 mg/dL Calcium Level 9.5 8.7-10.4 mg/dL Plasma/Serum Blood Alcohol < 3.0 <10 mg/dL X-Ray, Labs, Meds, VS Comment All studies performed the ED were evaluated by me personally. Serum studies were unremarkable for any systemic concerns including unremarkable cardiac markers. EKG revealed a sinus rhythm with a rate of 76. [place] interval 138 and QT interval of 400. Unremarkable EKG. Patient appears to have had a chest pain event due to anxiety. Advised patient to follow up with the primary care provider and server security administrator for continued management. Time of 1ST Reevaluation: 16:51 Reevaluation 1ST: Improved Consultation: PCP, Cardiology Patient Education/Counseling: Diagnosis, Treatment, Prognosis Family Education/Counseling: Diagnosis, Treatment, No Family Present SEPSIS Sepsis Screen Date sepsis recognized/suspect: Jun 20, 2025 Time Sepsis recognized/suspect: 1645 Recent Procedure: No On Antibiotic Therapy: No Respiratory Rate >20: No Heart Rate >90: No Temp<36 C (96.8 F) or >38.3 C: No SBP <90 or MAP <65 mmHG: No New Acute Mental Status Change: No Is the patient on CPAP, BIPAP,: No Physician Orders Electrocardigram (06/20/25 17:41) Electrocardigram (06/20/25 19:41) Urinalysis (06/20/25 16:48) Drug Screen (06/20/25 16:48) Vital Signs Date Time Temp Pulse Resp B/P (MAP) Pulse Ox O2 Delivery O2 Flow Rate FiO2 06/20/25 19:25 77 06/20/25 16:43 98.2 80 18 129/66 95 98.2 06/20/25 16:40 76 Laboratory Tests Test 06/20/25 16:55 White Blood Count 5.5 10^3/uL (4.4-10.8) Departure 1 Departure Time of Disposition: 21:15 Impression: Primary Impression: Chest pain Disposition: 01 HOME / SELF CARE / HOMELESS Condition: Stable Additional Instructions: Advised patient follow up with her primary care provider and server security administrator for continued evaluation and management of chest pain concerns. Discharged With: Self, Friend Critical Care Note Critical Care Time?: No Stability Stability form required: No Heart Score Heart Score: Heart Score Response (Comments) Value History Slightly Suspicious 0 EKG Normal 0 Age >65 2 Risk Factors >3 or Hx ASHD 2 Troponin Normal limit 0 Total 4 I personally scribed for ARVIND MEHTA PAC ([email or web address]) on 06/20/25 at 16:51. Electronically submitted by Cheri Stroud ([facility]). ARVIND MEHTA PAC Jun 20, 2025 16:51
[2025-06-20 17:11] LABS: Hematocrit 44.4 % (36.0-46.0); Hemoglobin 15.3 g/dL (12.2-16.2); Mean Corpuscular Hemoglobin 29.6 pg (28.0-32.0); Mean Corpuscular Volume 86.1 fL (80.0-100.0); Nucleated Red Blood Cells % 0.1 %
[2025-06-20 17:17] LABS: Potassium 3.9 mmol/L (3.5-5.1); Sodium 144 mmol/L (136-145)
[2025-06-20 17:18] LABS: Anion Gap 9 (5-15); Carbon Dioxide 26 mmol/L (20-31)
[2025-06-20 17:19] LABS: Calcium 9.5 mg/dL (8.7-10.4)
[2025-06-20 17:23] LABS: BUN/Creatinine Ratio 11.9 (10.0-20.0); Blood Urea Nitrogen 13 mg/dL (9-23); Glucose 96 mg/dL (74-106)
[2025-06-20 17:26] LABS: Chloride 109 mmol/L (98-107)
--- NOTE | 2025-06-20 19:28 | ECG ---
[facility] Test Date: 2025-06-20 Test Time: 19:25:37 Pat Name: ZEKE INFANTE Department: [facility] ED Patient ID: [facility]-[id number] Room: Gender: F Email Marketing Assistant: chary : 1950 Requested By: ADAN WHITE Order Number: [id number] Reading MD: Valerio Naidu Measurements Intervals [place] Rate: 77 P: 77 [place]: 132 QRS: 76 QRSD: 96 T: 70 QT: 390 QTc: 442 Interpretive Statements Sinus rhythm Atrial premature complex Electronically Signed On 06-25-2025 9:27:28 PDT by Valerio Naidu Please click the below link to view image of tracing.
[2025-06-20 21:37] VITALS: BP 145/78; PULSE 71; RESP 21; TEMP 98; O2SAT 98
--- NOTE | 2025-06-21 02:56 | ECG ---
[facility] Test Date: 2025-06-20 Test Time: 16:38:58 Pat Name: ZEKE INFANTE Department: Room: Gender: F Language Therapist: [place] : 1950 Requested By: ADAN WHITE Order Number: [id number] Reading MD: Valerio Naidu Measurements Intervals [place] Rate: 76 P: 79 [place]: 138 QRS: 64 QRSD: 90 T: 47 QT: 400 QTc: 450 Interpretive Statements Sinus rhythm Electronically Signed On 06-25-2025 9:27:08 PDT by Valerio Naidu Please click the below link to view image of tracing.
== END 2025-06-20 21:16 | disposition home or self-care (01) ==
LOC: ER 16:37 → EDBD 16:37 → ER 21:16
DX: R07.2 Precordial pain (principal); E78.5 Hyperlipidemia, unspecified; I10 Essential (primary) hypertension; I25.10 Atherosclerotic heart disease of native coronary artery without angina pectoris; I25.2 Old myocardial infarction; Z98.61 Coronary angioplasty status; Z90.710 Acquired absence of both cervix and uterus; Z91.148 Patient's other noncompliance with medication regimen for other reason; Z88.1 Allergy status to other antibiotic agents; Z88.5 Allergy status to narcotic agent; Z88.6 Allergy status to analgesic agent; Z90.49 Acquired absence of other specified parts of digestive tract; Z86.73 Personal history of transient ischemic attack (TIA), and cerebral infarction without residual deficits; Z79.899 Other long term (current) drug therapy
CPT/HCPCS: 36415; 80048; 80320; 84484; 85025; 93005

== ENCOUNTER 2025-07-18 16:37 | Inpatient (IN) | payer MEDICAID, OTHER ==
[~2025-07-18] VITALS: Ht 167.6 cm; Wt 57.4 kg
[2025-07-18 18:02] LABS: Hematocrit 45.8 % (36.0-46.0); Hemoglobin 15.5 g/dL (12.2-16.2); Mean Corpuscular Hemoglobin 29.1 pg (28.0-32.0); Mean Corpuscular Volume 86.2 fL (80.0-100.0); Nucleated Red Blood Cells % 0.1 %
[2025-07-18 18:17] LABS: Alanine Aminotransferase 12 U/L (7-40); Albumin 4.3 g/dL (3.2-4.8); Alkaline Phosphatase 91 U/L (46-116); Anion Gap 11 (5-15); BUN/Creatinine Ratio 16.0 (10.0-20.0); Blood Urea Nitrogen 17 mg/dL (9-23); Calcium 9.3 mg/dL (8.7-10.4); Carbon Dioxide 25 mmol/L (20-31); Glucose 90 mg/dL (74-106); Potassium 4.2 mmol/L (3.5-5.1); Sodium 144 mmol/L (136-145); Total Protein 6.7 g/dL (5.7-8.2)
[2025-07-18 18:18] LABS: Bilirubin, Total 0.5 mg/dL (0.2-1.0)
[2025-07-18 18:24] LABS: Chloride 108 mmol/L (98-107)
--- NOTE | 2025-07-18 18:37 | DVH ---
EXAM: CT CT AB PEL WO CON-NO ORAL OR IV INDICATION: ro nephrolithiasis TECHNIQUE: Volumetric multidetector CT images of the abdomen and pelvis were obtained without contras t. All CT scans at this facility use dose modulation, iterative reconstruction, and/or weight based d osing when appropriate to reduce radiation dose to as low as reasonably achievable. COMPARISON: CT CT AB PEL WITH ORAL CON ONLY on DOS: 07/02/24 FINDINGS: [LOWER CHEST]: The partially visualized lung bases are clear without a pleural effusion. The cardiac size is normal without pericardial effusion. [LIVER]: Normal hepatic size without suspicious focal lesion. [GALLBLADDER AND BILIARY TREE]: Surgically absent. [SPLEEN]: Unremarkable. [PANCREAS]: Coarse calcification of the pancreatic body. [ADRENAL GLANDS]: Unremarkable [KIDNEYS]: No hydronephrosis. Nonobstructive 3-4 mm inferior kidney stone. Benign-appearing left supe rior kidney cyst [BLADDER]: Unremarkable for the degree distention. [REPRODUCTIVE ORGANS]: Hysterectomy [BOWEL/MESENTERY]: Trace sliding hiatal hernia. No CT evidence of bowel obstruction. sigmoid divertic ulosis. No CT evidence of acute diverticulitis. [ASCITES]: Absent [LYMPHADENOPATHY]: No pathologically enlarged lymph nodes by CT size criteria [VASCULATURE]: Fusiform infrarenal abdominal aortic aneurysm measuring 2.5 cm. [ABDOMINAL WALL]: Unremarkable. [MUSCULOSKELETAL]: No acute fracture or aggressive focal osseous lesion. Multifocal degenerative parson ge of the visualized spine. IMPRESSION: 1. No CT evidence of an acute abdominal/pelvic process. 2. No hydronephrosis or obstructive ureterolithiasis. Nonobstructive left renal caliceal stone. 3. Sigmoid diverticulosis.
--- NOTE | 2025-07-18 18:49 | ED.PDOC ---
GI ASSESSMENT HPI Comments 74-year-old female came to ER for nausea and vomiting. Patient states for the past week, she has been having episodes of nausea and vomiting, unable to keep anything in. Associated abdominal discomfort and bilateral flank pains, and headaches. Denies any diarrhea. Persistence prompted check up. Chief Complaint: Nausea/Vomiting Time Seen by MD: 18:48 Primary Care Provider: ? Reviewed Notes: Nurses Notes Allergies: Coded Allergies: Cephalexin (Verified Allergy, Unknown, 01/25/17) Codeine (Verified Allergy, Unknown, 01/25/17) Hydrocodone (Verified Allergy, Unknown, 02/09/25) Ibuprofen (Verified Allergy, Unknown, 01/25/17) Home Meds Active Scripts Ondansetron Odt 4MG Tab (ZOFRAN PO) 4 Mg Tb, 4 MG PO Q8HP PRN for 10 Days, #30 TAB ODT TAB-DISSOLVE IN MOUTH, THEN SWALLOW Prov:AUSTINNATALIIAROMI Holden DO 01/07/24 Guaifenesin (Guaifenesin) 200 Mg Tab, 200 MG PO BID PRN for 10 Days, #20 TAB Prov:AUSTINNATALIIAROMI Holden DO 01/07/24 Azithromycin (Azithromycin) 250 Mg Tab, 250 MG PO DAILY MDD 500 for 5 Days, #6 TAB 0 Refills 2 TABLETS ORALLY ON DAY ONE, THEN 1 TABLET ORALLY DAILY FOR 4 DAYS Prov:AUSTINNATALIIAROMI Holden DO 01/07/24 Methylprednisolone (Medrol Dosepak) 4 Mg [place]dal[place], 4 MG PO UD, #21 TAB UAD Prov:BRAD BALDERAS MD 01/04/24 Albuterol Sulfate (VENTOLIN MDI) 90 Mcg Ih, 90 MCG IN PRN, #1 INH 0 Refills 2 inhalations every 4 to 6 hours as needed Prov:BRAD BALDERAS MD 01/04/24 Reported Medications Ticagrelor Base (Brilinta) 60 Mg Tab, 1 TAB PO BID 01/05/24 Ranolazine (Ranolazine ER) 500 Mg Tab, 1 TAB PO BID 01/05/24 Ezetimibe (Ezetimibe) 10 Mg Tab, 1 TAB PO DAILY 01/05/24 Ticagrelor Base (BRILINTA) 90 Mg Tab, 1 TAB PO BID 01/31/22 Carvedilol (Carvedilol) 3.125 Mg Tab, 1 TAB PO BID 01/31/22 Aspirin (Aspirin Low Dose) 81 Mg Tab, 1 TAB PO DAILYPRN 01/31/22 Atorvastatin Calcium (ATORVASTATIN CALCIUM) 80 Mg Tab, 1 TAB PO DAILYPRN 01/31/22 Information Source: Patient Mode of Arrival: EMS Timing: Days Duration: Intermittent Prehospital treatment: None Quality: Aching Vomitus: Watery Stool: Normal Severity: Moderate Recent: None Recent Hx of: Abdominal Surgery Pain Location: Epigastric, Other (Bilateral flank) Associated sign and symptoms: Nausea, Vomiting, Abdominal Pain Past Medical History PAST MEDICAL HISTORY: CAD, High Lipids, HTN, [place], TIA Surgical History: Cholecystectomy, , Hysterectomy, PTCA Surgical History (Other): Laparoscopic surgery 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 History: Endometriosis Family History Family History: Reviewed,noncontributory to illness Social History Smoker: Non-Smoker, Less Than 1 Pack/Day Alcohol: Denies ETOH Use Drugs: Denies Drug Use Lives In: Home Constitutional: denies: chills, diaphoresis, fatigue, fever, malaise, sweats, weakness, others EENTM: denies: blurred vision, double vision, ear bleeding, ear discharge, ear drainage, ear pain, ear ringing, eye pain, eye redness, hearing loss, mouth pain, mouth swelling, nasal discharge, nose bleeding, nose congestion, nose pain, photophobia, tearing, throat pain, throat swelling, voice changes, others Respiratory: denies: cough, hemoptysis, orthopnea, SOB at rest, shortness of breath, SOB with excertion, stridor, wheezing, others Cardiovascular: denies: chest pain, dizzy spells, diaphoresis, Dyspnea on exertion, edema, irregular heart beat, left arm pain, lightheadedness, palpitations, PND, syncope, others Gastrointestinal: reports: abdominal pain, nausea, vomiting; denies: abdomen distended, blood streaked bowels, constipated, diarrhea, dysphagia, difficulty swallowing, hematemesis, melena, poor appetite, poor fluid intake, rectal bleeding, rectal pain, others Genitourinary: reports: flank pain; denies: abnormal vagina bleeding, burning, dyspareunia, dysuria, frequency, hematuria, incontinence, pain, , vagina discharge, urgency, others Neurological: denies: dizziness, fainting, headache, left sided numbness, left sided weakness, numbness, paresthesia, pre-existing deficit, right sided numbness, right sided weakness, seizure, speech problems, tingling, tremors, weakness, others Musculoskeletal: denies: back pain, gout, joint pain, joint swelling, muscle pain, muscle stiffness, neck pain, others Integumetry: denies: bruises, change in color, change in hair/nails, dryness, laceration, lesions, lumps, rash, wounds, others Allergic/Immunocompromised: denies: Difficulty Healing, Frequent Infections, Hives, Itching, others Hematologic/Lymphatic: denies: anemia, blood clots, easy bleeding, easy bruising, swollen glands, others Endocrine: denies: excessive hunger, excessive sweating, excessive thirst, excessive urination, flushing, intolerance to cold, intolerance to heat, unexplained weight gain, unexplained weight loss, others Psychiatric: denies: anxiety, bipolar disorder, depression, hopeless, panic disorder, schizophrenia, sleepless, suicidal, others Physical Exam General Appearance: No Apparent Distress, Normal HEENT: Normal ENT Inspection, Pharynx Normal, TMs Normal Neck: Full Range of Motion, Non-Tender, Normal, Normal Inspection Respiratory: Chest Non-Tender, Lungs Clear, No Accessory Muscle Use, No Respiratory Distress, Normal Breath Sounds Cardiovascular: No Edema, No JVD, No Murmur, No Gallop, Normal Peripheral Pulses, Regular Rate/Rhythm Breast Exam: Deferred Gastrointestinal: No Organomegaly, Non Tender, No Pulsatile Mass, Normal Bowel Sounds, Soft Genitalia: Deferred Pelvic: Deferred Rectal: Deferred Extremities: No calf tenderness, Normal capillary refill, Normal inspection, Normal range of motion, Non-tender, No pedal edema Musculoskeletal : Apperance: Normal Neurologic: Alert, temperature control inspector II-XII nml as Tested, No Motor Deficits, Normal Affect, Normal Mood, No Sensory Deficits Cerebellar Function: Normal Reflexes: Normal Skin: Dry, Normal Color, Warm Lymphatic: No Adenopathy Was a procedure done? Was a procedure done?: No GI differential Dx Differential Diagnosis: Diverticular disease, Gastritis/PUD, Gastroenteritis, Pancreatitis, UTI, Urolithiasis, Dehydration, Electrolyte Imbalance X-Ray, Labs, Meds, VS Vital Signs Date Time Temp Pulse Resp B/P (MAP) Pulse Ox O2 Delivery O2 Flow Rate FiO2 07/18/25 16:49 65 07/18/25 16:43 97.7 74 20 142/71 97 97.7 Lab Test 07/18/25 20:06 07/18/25 17:41 Range/Units Urine Color Yellow Yellow Urine Clarity Turbid H Clear Urine pH 5.5 5.0-9.0 Urine Specific [place] 1.029 1.001-1.035 Urine Protein Trace H Negative Urine Ketones 1+ H Negative Urine Blood 1+ H Negative /uL Urine Nitrite Negative Negative Urine Bilirubin Negative Negative Urine Urobilinogen 2 H Negative mg/dL Urine Leukocyte Esterase 3+ Negative /uL Urine RBC 9 0 - 4 /hpf Urine Microscopic WBC 47 H 0-5 /HPF Urine Squamous Epithelial Cells Many <5 /hpf Urine Bacteria Few H None Seen /hpf Urine Mucus Few None Seen Urine Glucose Normal Normal mg/dL White Blood Count 5.5 4.4-10.8 10^3/uL Red Blood Count 5.32 H 4.0-5.20 10^6/uL Hemoglobin 15.5 12.2-16.2 g/dL Hematocrit 45.8 36.0-46.0 % Mean Corpuscular Volume 86.2 80.0-100.0 fL Mean Corpuscular Hemoglobin 29.1 28.0-32.0 pg Mean Corpuscular Hemoglobin Concent 33.8 32.0-36.0 g/dL Red Cell Distribution Width 14.9 H 11.8-14.3 % Platelet Count 204 140-450 10^3/uL Mean Platelet Volume 8.7 6.9-10.8 fL Neutrophils (%) (Auto) 58.1 37.0-80.0 % Lymphocytes (%) (Auto) 33.2 10.0-50.0 % Monocytes (%) (Auto) 6.3 0.0-12.0 % Eosinophils (%) (Auto) 1.4 0.0-7.0 % Basophils (%) (Auto) 1.0 0.0-2.0 % Neutrophils # (Auto) 3.2 1.6-8.6 10 ^3/uL Lymphocytes # (Auto) 1.8 0.4-5.4 10 ^3/uL Monocytes # (Auto) 0.3 0-1.3 10 ^3/uL Eosinophils # (Auto) 0.1 0-0.8 10 ^3/uL Basophils # (Auto) 0.1 0-0.2 10 ^3/uL Nucleated Red Blood Cells 0.1 % Sodium Level 144 136-145 mmol/L Potassium Level 4.2 3.5-5.1 mmol/L Chloride Level 108 H 98-107 mmol/L Carbon Dioxide Level 25 20-31 mmol/L Anion Gap 11 5-15 Blood Urea Nitrogen 17 9-23 mg/dL Creatinine 1.06 H 0.550-1.02 mg/dL Glomerular Filtration Rate Calc 56 >90 mL/min BUN/Creatinine Ratio 16.0 10.0-20.0 Serum Glucose 90 74-106 mg/dL Calcium Level 9.3 8.7-10.4 mg/dL Total Bilirubin 0.5 0.2-1.0 mg/dL Aspartate Amino Transferase (AST) 13 13-40 U/L Alanine Aminotransferase (ALT) 12 7-40 U/L Alkaline Phosphatase 91 46-116 U/L Total Protein 6.7 5.7-8.2 g/dL Albumin 4.3 3.2-4.8 g/dL EXAM: CT CT AB PEL WO CON-NO ORAL OR IV INDICATION: ro nephrolithiasis TECHNIQUE: Volumetric multidetector CT images of the abdomen and pelvis were obtained without contrast. All CT scans at this facility use dose modulation, iterative reconstruction, and/or weight based dosing when appropriate to reduce radiation dose to as low as reasonably achievable. COMPARISON: CT CT AB PEL WITH ORAL CON ONLY on DOS: 07/02/24 FINDINGS: [LOWER CHEST]: The partially visualized lung bases are clear without a pleural effusion. The cardiac size is normal without pericardial effusion. [LIVER]: Normal hepatic size without suspicious focal lesion. [GALLBLADDER AND BILIARY TREE]: Surgically absent. [SPLEEN]: Unremarkable. [PANCREAS]: Coarse calcification of the pancreatic body. [ADRENAL GLANDS]: Unremarkable [KIDNEYS]: No hydronephrosis. Nonobstructive 3-4 mm inferior kidney stone. Benign-appearing left superior kidney cyst [BLADDER]: Unremarkable for the degree distention. [REPRODUCTIVE ORGANS]: Hysterectomy [BOWEL/MESENTERY]: Trace sliding hiatal hernia. No CT evidence of bowel obstruction. sigmoid diverticulosis. No CT evidence of acute diverticulitis. [ASCITES]: Absent [LYMPHADENOPATHY]: No pathologically enlarged lymph nodes by CT size criteria [VASCULATURE]: Fusiform infrarenal abdominal aortic aneurysm measuring 2.5 cm. [ABDOMINAL WALL]: Unremarkable. [MUSCULOSKELETAL]: No acute fracture or aggressive focal osseous lesion. Multifocal degenerative change of the visualized spine. IMPRESSION: 1. No CT evidence of an acute abdominal/pelvic process. 2. No hydronephrosis or obstructive ureterolithiasis. Nonobstructive left renal caliceal stone. 3. Sigmoid diverticulosis. Time of 1ST Reevaluation: 18:46 Reevaluation 1ST: Unchanged Patient Education/Counseling: Diagnosis, Treatment Family Education/Counseling: No Family Present SEPSIS Sepsis Screen Date sepsis recognized/suspect: Jul 18, 2025 Time Sepsis recognized/suspect: 1642 Recent Procedure: No On Antibiotic Therapy: No Respiratory Rate >20: No Heart Rate >90: No Temp<36 C (96.8 F) or >38.3 C: No SBP <90 or MAP <65 mmHG: No New Acute Mental Status Change: No Is the patient on CPAP, BIPAP,: No Physician Orders Ct Ab Pel Wo Con-No Oral Or Iv (07/18/25 17:22) Electrocardigram (07/18/25 17:55) Ceftriaxone 1gm/50ml (Rocephin) (07/18/25 21:15) Lactic Acid W/ Reflex Order (07/18/25 21:18) Blood Culture (07/18/25 21:18) NS (07/18/25 21:30) Vital Signs Date Time Temp Pulse Resp B/P (MAP) Pulse Ox O2 Delivery O2 Flow Rate FiO2 07/18/25 16:49 65 07/18/25 16:43 97.7 74 20 142/71 97 97.7 Laboratory Tests Test 07/18/25 17:41 White Blood Count 5.5 10^3/uL (4.4-10.8) Departure 1 Departure Time of Disposition: 21:18 (Patient likely with a complicated UTI. The patient for further workup and expert consultation) Impression: Primary Impression: Complicated UTI (urinary tract infection) Additional Impression: Generalized weakness Disposition: ADMITTED INPATIENT Admit to: Med Surg Condition: Serious Critical Care Note Critical Care Time?: No Stability Stability form required: No Heart Score Heart Score: Heart Score Response (Comments) Value History N/A 0 EKG N/A 0 Age N/A 0 Risk Factors N/A 0 Troponin N/A 0 Total 0 I personally scribed for JOSAFAT PERES MD ([email or web address]) on 07/18/25 at 18:49. Electronically submitted by Devan Lin ([facility]). JOSAFAT PERES MD Jul 18, 2025 18:49
[2025-07-18 20:36] LABS: Urine Protein, UAD TRACE (Negative)
[2025-07-18] MEDS ORDERED: CEFEPIME 2GM/50ML NS 50 ML IV ONE (21:15)
[2025-07-18] MEDS: SODIUM CHLORIDE 0.9% 1,000 ML IV ONE (21:30)
[2025-07-18 21:34] VITALS: PULSE 64; RESP 18; O2SAT 95
[2025-07-18] MEDS ORDERED: ACETAMINOPHEN 325 MG TAB PO PRN (22:00)
[2025-07-18] MEDS ORDERED: MORPHINE SULFATE INJ 2 MG/ml SYRG IV PRN (22:00)
--- NOTE | 2025-07-18 22:09 | DVHHPRES ---
History of Present Illness Resident Creating Document: ARELIS MENDEZ RESIDENT History of Present Illness Sarah Beaulieu is a 74-year-old female patient who presents to ED with chief complaint of nausea, vomiting with nonbloody emesis (only food content) which initiated proximally one week before her admission, associated with dizziness, feeling faint, no loss of consciousness or head trauma. Denies recent travel, sick contacts, any change in her diet in any other associated symptom. Past medical history: Hypertension, UT two years ago with PCI with three stents, CKD, endometriosis status post laparoscopy and hysterectomy Surgical history: Hysterectomy, laparoscopy, cholecystectomy Family history: Father had lung cancer Social history: Lives in [place] with family (next of kin is son). Current smoker (half a pack a day for 50 years, 25 pack-year history of smoking). Denies current alcohol and other drug abuse. Allergies: Denies (per EMR cephalexin, codeine, hydrocodone and ibuprofen) Home medication: Denies Patient seen and examined at bedside. Currently has no new complaints. Patient admitted for further management Past Medical History Per HPI Past Surgical History Per HPI Family History Per HPI Past Social History Per HPI Review of Systems Review of Systems Per HPI Allergies: Coded Allergies: Cephalexin (Verified Allergy, Unknown, 01/25/17) Codeine (Verified Allergy, Unknown, 01/25/17) Hydrocodone (Verified Allergy, Unknown, 02/09/25) Ibuprofen (Verified Allergy, Unknown, 01/25/17) Medications Current Medications Medications Dose Ordered Sig/Natacha Route Start Time Stop Time Status Last Admin Dose Admin Acetaminophen 325 mg Q4HP PRN PO 07/18/25 22:00 Ondansetron HCl 4 mg Q4HP PRN IV 07/18/25 22:00 Morphine Sulfate 2 mg Q4HPRN PRN IV 07/18/25 22:00 Enoxaparin Sodium 40 mg DAILY SC 07/19/25 10:00 Exam Vital Signs Vital Signs Date Time Temp Pulse Resp B/P (MAP) Pulse Ox O2 Delivery O2 Flow Rate FiO2 07/18/25 21:34 64 18 95 Room Air* 0 21 07/18/25 21:34 97.8 135/91 (106) 97.8 Exam Patient lying in bed, in no acute distress General: Lucid, afebrile, mucosae are moist Cardiovascular: Normal S1 and S2. No murmurs, gallops or rubs Respiratory: Normal ventilation mechanics. Clear lung sounds on auscultation Abdomen: Soft, nontender, no organomegaly, normal bowel sounds : Positive Costovertebral tenderness on percussion bilaterally, suprapubic tenderness MSK/skin: Mobilizes 4 limbs. Skin is dry and warm Neurological: Oriented in 3 spheres. No motor no sensitive deficits. Pupils are isocoric and reactive Labs/Xrays Labs Test 07/18/25 20:06 07/18/25 17:41 Range/Units Urine Color Yellow Yellow Urine Clarity Turbid H Clear Urine pH 5.5 5.0-9.0 Urine Specific [place] 1.029 1.001-1.035 Urine Protein Trace H Negative Urine Ketones 1+ H Negative Urine Blood 1+ H Negative /uL Urine Nitrite Negative Negative Urine Bilirubin Negative Negative Urine Urobilinogen 2 H Negative mg/dL Urine Leukocyte Esterase 3+ Negative /uL Urine RBC 9 0 - 4 /hpf Urine Microscopic WBC 47 H 0-5 /HPF Urine Squamous Epithelial Cells Many <5 /hpf Urine Bacteria Few H None Seen /hpf Urine Mucus Few None Seen Urine Glucose Normal Normal mg/dL White Blood Count 5.5 4.4-10.8 10^3/uL Red Blood Count 5.32 H 4.0-5.20 10^6/uL Hemoglobin 15.5 12.2-16.2 g/dL Hematocrit 45.8 36.0-46.0 % Mean Corpuscular Volume 86.2 80.0-100.0 fL Mean Corpuscular Hemoglobin 29.1 28.0-32.0 pg Mean Corpuscular Hemoglobin Concent 33.8 32.0-36.0 g/dL Red Cell Distribution Width 14.9 H 11.8-14.3 % Platelet Count 204 140-450 10^3/uL Mean Platelet Volume 8.7 6.9-10.8 fL Neutrophils (%) (Auto) 58.1 37.0-80.0 % Lymphocytes (%) (Auto) 33.2 10.0-50.0 % Monocytes (%) (Auto) 6.3 0.0-12.0 % Eosinophils (%) (Auto) 1.4 0.0-7.0 % Basophils (%) (Auto) 1.0 0.0-2.0 % Neutrophils # (Auto) 3.2 1.6-8.6 10 ^3/uL Lymphocytes # (Auto) 1.8 0.4-5.4 10 ^3/uL Monocytes # (Auto) 0.3 0-1.3 10 ^3/uL Eosinophils # (Auto) 0.1 0-0.8 10 ^3/uL Basophils # (Auto) 0.1 0-0.2 10 ^3/uL Nucleated Red Blood Cells 0.1 % Sodium Level 144 136-145 mmol/L Potassium Level 4.2 3.5-5.1 mmol/L Chloride Level 108 H 98-107 mmol/L Carbon Dioxide Level 25 20-31 mmol/L Anion Gap 11 5-15 Blood Urea Nitrogen 17 9-23 mg/dL Creatinine 1.06 H 0.550-1.02 mg/dL Glomerular Filtration Rate Calc 56 >90 mL/min BUN/Creatinine Ratio 16.0 10.0-20.0 Serum Glucose 90 74-106 mg/dL Calcium Level 9.3 8.7-10.4 mg/dL Total Bilirubin 0.5 0.2-1.0 mg/dL Aspartate Amino Transferase (AST) 13 13-40 U/L Alanine Aminotransferase (ALT) 12 7-40 U/L Alkaline Phosphatase 91 46-116 U/L Total Protein 6.7 5.7-8.2 g/dL Albumin 4.3 3.2-4.8 g/dL SEPSIS Sepsis Screen Date sepsis recognized/suspect: Jul 18, 2025 Time Sepsis recognized/suspect: 1642 Recent Procedure: No On Antibiotic Therapy: No Respiratory Rate >20: No Heart Rate >90: No Temp<36 C (96.8 F) or >38.3 C: No SBP <90 or MAP <65 mmHG: No New Acute Mental Status Change: No Is the patient on CPAP, BIPAP,: No Physician Orders Ct Ab Pel Wo Con-No Oral Or Iv (07/18/25 17:22) Electrocardigram (07/18/25 17:55) Ceftriaxone 1gm/50ml (Rocephin) (07/18/25 21:15) Sodium Chloride 0.9% (07/18/25 21:30) Admit (07/18/25 21:52) Code Status (07/18/25 21:52) Acetaminophen Tablet (Tylenol Tablet) (07/18/25 22:00) Ondansetron Hcl (Zofran) (07/18/25 22:00) Complete Blood Count (07/19/25 04:00) Comprehensive Metabolic Panel (07/19/25 04:00) Npo (Nothing By Mouth) Diet (07/19/25 Breakfast) Morphine Sulfate Injection (07/18/25 22:00) Enoxaparin Sodium (Lovenox) (07/19/25 10:00) Oxygen By Nasal Cannula (07/18/25:52) Stat Ekg For Chest Pain (07/18/25:52) Notify Md Of Changes From Base (07/18/25:52) Sludge Filtration Attendant For 24 Hours (07/18/25:52) Emergency Dysrhythmia Protocol (07/18/25) Rhythm Strips Once Every Shift (07/18/25:52) Vitamin D, 25-Hydroxy (07/18/25:52) Vitamin B12 (07/18/25:52) Thyroid Stimulating Hormone (07/18/25:52) Phosphorus (07/18/25:52) Lipid Panel (07/18/25:52) Magnesium (07/18/25:52) Lipase (07/18/25:52) Hemoglobin A1c (07/18/25:52) Drug Screen (07/18/25:) Vital Signs Date Time Temp Pulse Resp B/P (MAP) Pulse Ox O2 Delivery O2 Flow Rate FiO2 07/18/25 21:34 64 18 95 Room Air* 0 21 07/18/25 21:34 97.8 64 18 135/91 (106) 95 97.8 07/18/25 16:49 65 07/18/25 16:43 97.7 74 20 142/71 97 97.7 Laboratory Tests Test 07/18/25 17:41 White Blood Count 5.5 10^3/uL (4.4-10.8) Medications Medications Dose Ordered Sig/Natacha Route Start Time Stop Time Status Last Admin Dose Admin Sodium Chloride 1,000 ml @ 1,000 mls/hr Q1H ONCE IV 07/18/25 21:30 07/18/25 22:29 07/18/25 21:30 1,000 MLS/HR Assessment/Plan Assessment/Plan Pyelonephritis Complicated UTI with microhematuria LOREE hemodynamically mediated (VMN) on CKD Asymptomatic nonobstructive left renal calyceal stone Completed UA which showed positive ketones, blood plus one, esterase and white blood cells. Indicated IV fluids Currently under empiric IV antibiotic (levofloxacin). Patient says she is not allergic to any medication, per EMR she is allergic to cephalexin. Avoid cephalosporins. Completed abdomen and pelvis CT which shows no acute findings, presents with nonobstructive left renal caliceal stone in sigmoid diverticulosis Questionable gastroenteritis Sigmoid diverticulosis with no diverticulitis Completed abdomen and pelvis CT which shows no acute findings, presents with nonobstructive left renal caliceal stone in sigmoid diverticulosis Rule out ACS Coronary artery disease with history of UT status post PCI with three MEGHNA Per patient she was not on aspirin nor atorvastatin Indicated aspirin and atorvastatin at this point. Patient will benefit from cardiology follow up as outpatient Completed echocardiogram on 03/2025 which showed LVEF 55-60%, mild diastolic dysfunction and no significant valve disease. Physical EKG showed normal sinus rhythm, but: Comparing to previous EKGs on [facility] liver patient had previous right bundle-branch block and left bundle- branch block. Ordered troponin. Tobacco dependence Counseled strongly on cessation for over 18 minutes Patient has 25 pack-year history of smoking. She will benefit from outpatient lung cancer screening. Ordered UDS History of endometriosis -status post laparoscopy and hysterectomy Monitor as outpatient Hypertension Gave advice on healthy lifestyle habits Patient has no home medication Goals of care discussed with patient for over 18 minutes: Full code status Discussed plan with Dr. Hercules, patient and nurses: Patient will be admitted on med surge to complete IV antibiotics. Ordered urine culture, pending results. Optimize medical therapy Plan discussed with: Patient, Other (Nurses) My Orders Orders - ARELIS MENDEZ RESIDENT Procedure Category Date Status Time Admit ADMIT 07/18/25 Transmitted 21:52 Code Status CODE 07/18/25 Transmitted 21:52 Acetaminophen Tablet PHA 07/18/25 In Process (Tylenol Tablet) 22:00 Ondansetron Hcl PHA 07/18/25 In Process (Zofran) 22:00 Complete Blood Count LAB 07/19/25 Verified 04:00 Comprehensive LAB 07/19/25 Verified Metabolic Panel 04:00 Npo (Nothing By DIET 07/19/25 Transmitted Mouth) Diet Breakfast Morphine Sulfate PHA 07/18/25 In Process Injection 22:00 Enoxaparin Sodium PHA 07/19/25 In Process (Lovenox) 10:00 Oxygen By Nasal RT 07/18/25 Transmitted Cannula 21:52 Stat Ekg For Chest SAIGE 07/18/25 In Process Pain 21:52 Notify Of Changes SAIGE 07/18/25 In Process From Base 21:52 Sludge Filtration Attendant For SAIGE 07/18/25 In Process 24 Hours 21:52 Emergency Dysrhythmia SAIGE 07/18/25 In Process Protocol 21:52 Rhythm Strips Once SAIGE 07/18/25 In Process Every Shift 21:52 Vitamin D, 25-Hydroxy LAB 07/18/25 In Process 21:52 Vitamin B12 LAB 07/18/25 In Process 21:52 Thyroid Stimulating LAB 07/18/25 In Process Hormone 21:52 Phosphorus LAB 07/18/25 In Process 21:52 Lipid Panel LAB 07/18/25 In Process 21:52 Magnesium LAB 07/18/25 In Process 21:52 Lipase LAB 07/18/25 In Process 21:52 Hemoglobin A1c LAB 07/18/25 In Process 21:52 Drug Screen LAB 07/18/25 Logged 21:52 Date of Service: Jul 18, 2025 Billing Provider: JEAN PAUL HERCULES MD Common Visit Codes: [id number] INP/OBS CARE (HIGH) Secondary Visit Codes: [id number] CARE PLAN 30 MINUTES ARELIS MENDEZ RESIDENT Jul 18, 2025 22:08
[2025-07-18 22:34] LABS: Magnesium 2.0 mg/dL (1.6-2.6); Triglycerides 130.0 mg/dL (< 150)
[2025-07-18 22:35] LABS: HDL Cholesterol 52.0 mg/dL (40-59)
[2025-07-18 22:42] LABS: Cholesterol 207.0 mg/dL (< 200)
[2025-07-18 23:14] LABS: Lipase 37.0 U/L (12-53)
[2025-07-19] VITALS (9 sets, daily range): BP systolic 124–148; BP diastolic 67–83; PULSE 56–71; RESP 16–20; TEMP 97.6–97.8; O2SAT 93–98
[2025-07-19 07:46] LABS: Hematocrit 40.4 % (36.0-46.0); Hemoglobin 13.6 g/dL (12.2-16.2); Mean Corpuscular Hemoglobin 29.1 pg (28.0-32.0); Mean Corpuscular Volume 86.6 fL (80.0-100.0); Nucleated Red Blood Cells % 0.2 %
[2025-07-19 07:59] LABS: Albumin 3.7 g/dL (3.2-4.8); Alkaline Phosphatase 76 U/L (46-116); Anion Gap 9 (5-15); BUN/Creatinine Ratio 13.1 (10.0-20.0); Bilirubin, Total 0.5 mg/dL (0.2-1.0); Blood Urea Nitrogen 13 mg/dL (9-23); Carbon Dioxide 25 mmol/L (20-31); Glucose 81 mg/dL (74-106); Potassium 4.0 mmol/L (3.5-5.1); Sodium 144 mmol/L (136-145); Total Protein 6.0 g/dL (5.7-8.2)
[2025-07-19 08:00] LABS: Alanine Aminotransferase < 9 U/L (7-40); Calcium 8.6 mg/dL (8.7-10.4); Chloride 110 mmol/L (98-107)
[2025-07-19] MEDS: ENOXAPARIN SOD 40 MG/0.4 ML SYRINGE SC SCH (09:29)
[2025-07-19] MEDS: SOD CHL 0.45% 1,000 ML IV SCH (12:57)
--- NOTE | 2025-07-19 18:40 | DVHPN2 ---
Subjective 74-year-old female with a known history of hypertension, known CAD status post PCI, presented to the hospital with nausea and vomiting found to have UTI. Patient is currently denies any nausea and vomiting tolerating diet. 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 Medications Current Medications Medications Dose Ordered Sig/Natacha Route Start Time Stop Time Status Last Admin Dose Admin Acetaminophen 325 mg Q4HP PRN PO 07/18/25 22:00 Ondansetron HCl 4 mg Q4HP PRN IV 07/18/25 22:00 Morphine Sulfate 2 mg Q4HPRN PRN IV 07/18/25 22:00 Enoxaparin Sodium 40 mg DAILY SC 07/19/25 10:00 07/19/25 09:29 40 MG Levofloxacin/ Dextrose 100 ml @ 100 mls/hr DAILY IV 07/19/25 10:00 07/19/25 09:29 100 MLS/HR Aspirin 81 mg DAILY PO 07/19/25 12:09 07/19/25 12:56 81 MG Atorvastatin Calcium 40 mg HS PO 07/19/25 22:00 Sodium Chloride 1,000 ml @ 60 mls/hr [id number] IV 07/19/25 11:15 07/19/25 12:57 60 MLS/HR Laboratory Results Laboratory Tests 07/19/25 06:40 Chemistry Test 07/19/25 06:40 Albumin 3.7 g/dL (3.2-4.8) Calcium Level 8.6 mg/dL (8.7-10.4) L Total Protein 6.0 g/dL (5.7-8.2) LFT Test 07/19/25 06:40 Alanine Aminotransferase (ALT) < 9 U/L (7-40) Alkaline Phosphatase 76 U/L (46-116) Aspartate Amino Transferase (AST) 12 U/L (13-40) L Total Bilirubin 0.5 mg/dL (0.2-1.0) Urinalysis Test 07/18/25 20:06 Urine Color Yellow (Yellow) Urine Clarity Turbid (Clear) H Urine pH 5.5 (5.0-9.0) Urine Specific [place] 1.029 (1.001-1.035) Urine Protein Trace (Negative) H Urine Ketones 1+ (Negative) H Urine Blood 1+ /uL (Negative) H Urine Nitrite Negative (Negative) Urine Bilirubin Negative (Negative) Urine Urobilinogen 2 mg/dL (Negative) H Urine Leukocyte Esterase 3+ /uL (Negative) Urine RBC 9 /hpf (0 - 4) Urine Microscopic WBC 47 /HPF (0-5) H Urine Squamous Epithelial Cells Many /hpf (<5) Urine Bacteria Few /hpf (None Seen) H Urine Mucus Few (None Seen) Urine Glucose Normal mg/dL (Normal) Microbiology Microbiology Date/Time Source Procedure Growth Status 07/19/25 01:59 Nose MRSA Screen - Final Complete Assessment/Plan Assessment/Plan 74-year-old female with a known history of hypertension, known CAD status post PCI initially admitted to the hospital with nausea and vomiting found to have 1. Intractable nausea and vomiting currently resolved 2. Urinary tract infection follow up urine culture 3. Known CAD status post PCI 4. Hypertension -IV antibiotics follow up urine culture diet as tolerated. Plan discussed with: Patient My Orders Orders - MARTELL HORNER MD Procedure Category Date Status Time Soft Diet DIET 07/19/25 Transmitted Dinner Date of Service: Jul 19, 2025 Billing Provider: MARTELL HORNER MD Common Visit Codes: [id number] INP/OBS CARE(HIGH) MARTELL HORNER MD Jul 19, 2025 18:40
[2025-07-19] MEDS: ATORVASTATIN 20 MG TAB PO SCH (22:51)
[2025-07-20] VITALS (10 sets, daily range): BP systolic 140–171; BP diastolic 67–95; PULSE 54–70; RESP 16–20; TEMP 97–98.1; O2SAT 93–96
[2025-07-20] MEDS: CARVEDILOL 3.125 MG TAB PO SCH (09:35)
[2025-07-20] MEDS: ONDANSETRON HCL 4 MG/2 ML VIAL IV PRN (10:41)
[2025-07-20] MEDS: hydrALAZINE HCL 20 MG/ML VL IV PRN (18:00)
--- NOTE | 2025-07-20 18:17 | DVHPN2 ---
Subjective 74-year-old female with a known history of hypertension, known CAD status post PCI, presented to the hospital with nausea and vomiting found to have UTI. Patient is currently denies any nausea and vomiting tolerating diet. 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 Medications Current Medications Medications Dose Ordered Sig/Natacha Route Start Time Stop Time Status Last Admin Dose Admin Acetaminophen 325 mg Q4HP PRN PO 07/18/25 22:00 Ondansetron HCl 4 mg Q4HP PRN IV 07/18/25 22:00 07/20/25 10:41 4 MG Morphine Sulfate 2 mg Q4HPRN PRN IV 07/18/25 22:00 Enoxaparin Sodium 40 mg DAILY SC 07/19/25 10:00 07/20/25 09:36 40 MG Levofloxacin/ Dextrose 100 ml @ 100 mls/hr DAILY IV 07/19/25 10:00 07/20/25 09:35 100 MLS/HR Aspirin 81 mg DAILY PO 07/19/25 12:09 07/20/25 09:35 81 MG Atorvastatin Calcium 40 mg HS PO 07/19/25 22:00 07/19/25 22:51 40 MG Sodium Chloride 1,000 ml @ 60 mls/hr [id number] IV 07/19/25 11:15 07/19/25 12:57 60 MLS/HR Carvedilol 3.125 mg Q12HR PO 07/20/25 10:00 07/20/25 09:35 3.125 MG Hydralazine HCl 10 mg Q6HP PRN IV 07/20/25 17:30 07/20/25 18:00 10 MG Laboratory Results Laboratory Tests 07/19/25 06:40 Urinalysis Test 10/10/25 20:06 Urine Color Yellow (Yellow) Urine Clarity Turbid (Clear) H Urine pH 5.5 (5.0-9.0) Urine Specific [place] 1.029 (1.001-1.035) Urine Protein Trace (Negative) H Urine Ketones 1+ (Negative) H Urine Blood 1+ /uL (Negative) H Urine Nitrite Negative (Negative) Urine Bilirubin Negative (Negative) Urine Urobilinogen 2 mg/dL (Negative) H Urine Leukocyte Esterase 3+ /uL (Negative) Urine RBC 9 /hpf (0 - 4) Urine Microscopic WBC 47 /HPF (0-5) H Urine Squamous Epithelial Cells Many /hpf (<5) Urine Bacteria Few /hpf (None Seen) H Urine Mucus Few (None Seen) Urine Glucose Normal mg/dL (Normal) Microbiology Microbiology Date/Time Source Procedure Growth Status 07/19/25 01:59 Nose MRSA Screen - Final Complete Assessment/Plan Assessment/Plan 74-year-old female with a known history of hypertension, known CAD status post PCI initially admitted to the hospital with nausea and vomiting found to have 1. Intractable nausea and vomiting currently resolved 2. Urinary tract infection follow up urine culture 3. Known CAD status post PCI 4. Hypertension -IV antibiotics follow up urine culture diet as tolerated. Plan discussed with: Patient My Orders Orders - MARTELL HORNER MD Procedure Category Date Status Time Carvedilol Tablet PHA 07/20/25 In Process (Coreg Tablet) 10:00 Hydralazine Injection PHA 07/20/25 In Process (Apresoline Inject 17:30 Date of Service: Jul 20, 2025 Billing Provider: MARTELL HORNER MD Common Visit Codes: [id number] INP/OBS CARE(HIGH) MARTELL HORNER MD Jul 20, 2025 18:17
[2025-07-21 01:00] VITALS: BP 152/87; PULSE 67; RESP 20; TEMP 97.1; O2SAT 94
[2025-07-21 05:00] VITALS: BP 135/65; PULSE 67; RESP 18; TEMP 97.4; O2SAT 94
[2025-07-21 08:36] VITALS: BP 155/95; PULSE 71; RESP 16; TEMP 97.4; O2SAT 92
[2025-07-21 13:00] VITALS: BP 148/95; PULSE 57; RESP 18; TEMP 97.6; O2SAT 96
[2025-07-21 16:48] VITALS: BP 141/89; PULSE 63; RESP 19; TEMP 97.5; O2SAT 96
--- NOTE | 2025-07-21 16:48 | DVHDS2 ---
Discharge Summary Date of Admission Jul 18, 2025 at 21:52 Date of Discharge: Jul 21, 2025 Labs/Diagnostic Data: Laboratory Results Test 07/19/25 06:40 07/18/25 20:06 07/18/25 17:41 White Blood Count 3.8 10^3/uL (4.4-10.8) Red Blood Count 4.66 10^6/uL (4.0-5.20) Hemoglobin 13.6 g/dL (12.2-16.2) Hematocrit 40.4 % (36.0-46.0) Mean Corpuscular Volume 86.6 fL (80.0-100.0) Mean Corpuscular Hemoglobin 29.1 pg (28.0-32.0) Mean Corpuscular Hemoglobin Concent 33.6 g/dL (32.0-36.0) Red Cell Distribution Width 14.6 % (11.8-14.3) Platelet Count 145 10^3/uL (140-450) Mean Platelet Volume 8.5 fL (6.9-10.8) Neutrophils (%) (Auto) 44.5 % (37.0-80.0) Lymphocytes (%) (Auto) 42.9 % (10.0-50.0) Monocytes (%) (Auto) 8.9 % (0.0-12.0) Eosinophils (%) (Auto) 2.6 % (0.0-7.0) Basophils (%) (Auto) 1.1 % (0.0-2.0) Neutrophils # (Auto) 1.7 10 ^3/uL (1.6-8.6) Lymphocytes # (Auto) 1.6 10 ^3/uL (0.4-5.4) Monocytes # (Auto) 0.3 10 ^3/uL (0-1.3) Eosinophils # (Auto) 0.1 10 ^3/uL (0-0.8) Basophils # (Auto) 0 10 ^3/uL (0-0.2) Nucleated Red Blood Cells 0.2 % Sodium Level 144 mmol/L (136-145) Potassium Level 4.0 mmol/L (3.5-5.1) Chloride Level 110 mmol/L (98-107) Carbon Dioxide Level 25 mmol/L (20-31) Anion Gap 9 (5-15) Blood Urea Nitrogen 13 mg/dL (9-23) Creatinine 0.99 mg/dL (0.550-1.02) Glomerular Filtration Rate Calc 61 mL/min (>90) BUN/Creatinine Ratio 13.1 (10.0-20.0) Serum Glucose 81 mg/dL (74-106) Calcium Level 8.6 mg/dL (8.7-10.4) Total Bilirubin 0.5 mg/dL (0.2-1.0) Aspartate Amino Transferase (AST) 12 U/L (13-40) Alanine Aminotransferase (ALT) < 9 U/L (7-40) Alkaline Phosphatase 76 U/L (46-116) Troponin I High Sensitivity 3 ng/L (</=34) Total Protein 6.0 g/dL (5.7-8.2) Albumin 3.7 g/dL (3.2-4.8) Urine Color Yellow (Yellow) Urine Clarity Turbid (Clear) Urine pH 5.5 (5.0-9.0) Urine Specific [place] 1.029 (1.001-1.035) Urine Protein Trace (Negative) Urine Ketones 1+ (Negative) Urine Blood 1+ /uL (Negative) Urine Nitrite Negative (Negative) Urine Bilirubin Negative (Negative) Urine Urobilinogen 2 mg/dL (Negative) Urine Leukocyte Esterase 3+ /uL (Negative) Urine RBC 9 /hpf (0 - 4) Urine Microscopic WBC 47 /HPF (0-5) Urine Squamous Epithelial Cells Many /hpf (<5) Urine Bacteria Few /hpf (None Seen) Urine Mucus Few (None Seen) Urine Glucose Normal mg/dL (Normal) Hemoglobin A1c 5.3 % A1C (<5.7) Phosphorus Level 3.4 mg/dL (2.4-5.1) Magnesium Level 2.0 mg/dL (1.6-2.6) Triglycerides Level 130 mg/dL (< 150) Cholesterol Level 207 mg/dL (< 200) LDL Cholesterol 144 mg/dL (< 100) HDL Cholesterol 52 mg/dL (40-59) Lipase 37 U/L (12-53) Vitamin B12 Level 351 pg/mL (211-911) Vitamin D 25-Hydroxy 20.7 ng/mL (30.0-100) Thyroid Stimulating Hormone (TSH) 1.06 uIU/mL (0.55-4.78) Other Laboratory Tests 07/19/25 06:40 Brief Hx & Hospital Course: 74-year-old female with a known history of hypertension, known CAD status post PCI initially admitted to the hospital with nausea and vomiting found to have 1. Intractable nausea and vomiting currently resolved 2. Urinary tract infection follow up urine culture 3. Known CAD status post PCI 4. Hypertension Final Diagnosis/Problems List 74-year-old female with a known history of hypertension, known CAD status post PCI initially admitted to the hospital with nausea and vomiting found to have 1. Intractable nausea and vomiting currently resolved 2. Urinary tract infection follow up urine culture 3. Known CAD status post PCI 4. Hypertension Discharge Disposition: Home Discharge Instruct/Medications Diet: Cardiac 2g Na,low cholest Activity: No Restrictions, As Tolerated Follow Up/Referral: Follow up with the PCP in 1-2 weeks Medications: Resume home medications. Continued Medications: Albuterol Sulfate (Ventolin Mdi) 90 Mcg Ih 90 MCG IN PRN, #1 INH 0 Refills 2 inhalations every 4 to 6 hours as needed Aspirin (Aspirin Low Dose) 81 Mg Tab 1 TAB PO DAILYPRN Atorvastatin Calcium (Atorvastatin Calcium) 80 Mg Tab 1 TAB PO DAILYPRN Azithromycin (Azithromycin) 250 Mg Tab 250 MG PO DAILY MDD 500 for 5 Days, #6 TAB 0 Refills 2 TABLETS ORALLY ON DAY ONE, THEN 1 TABLET ORALLY DAILY FOR 4 DAYS Carvedilol (Carvedilol) 3.125 Mg Tab 1 TAB PO BID Ezetimibe (Ezetimibe) 10 Mg Tab 1 TAB PO DAILY Guaifenesin (Guaifenesin) 200 Mg Tab 200 MG PO BID PRN for 10 Days, #20 TAB Methylprednisolone (Medrol Dosepak) 4 Mg Magdaleno 4 MG PO UD, #21 TAB UAD Ondansetron Odt 4MG Tab (Zofran Po) 4 Mg Tb 4 MG PO Q8HP PRN for 10 Days, #30 TAB ODT TAB-DISSOLVE IN MOUTH, THEN SWALLOW Ranolazine (Ranolazine ER) 500 Mg Tab 1 TAB PO BID Ticagrelor Base (Brilinta) 90 Mg Tab 1 TAB PO BID Ticagrelor Base (Brilinta) 60 Mg Tab 1 TAB PO BID Scheduled Albuterol Sulfate (Ventolin Mdi), 90 MCG IN PRN Aspirin (Aspirin Low Dose), 1 TAB PO DAILYPRN, (Reported) Atorvastatin Calcium (Atorvastatin Calcium), 1 TAB PO DAILYPRN, (Reported) Azithromycin (Azithromycin), 250 MG PO DAILY Carvedilol (Carvedilol), 1 TAB PO BID, (Reported) Ezetimibe (Ezetimibe), 1 TAB PO DAILY, (Reported) Methylprednisolone (Medrol Dosepak), 4 MG PO UD Ranolazine (Ranolazine ER), 1 TAB PO BID, (Reported) Ticagrelor Base (Brilinta), 1 TAB PO BID, (Reported) Ticagrelor Base (Brilinta), 1 TAB PO BID, (Reported) Scheduled PRN Guaifenesin (Guaifenesin), 200 MG PO BID PRN Ondansetron Odt 4MG Tab (Zofran Po), 4 MG PO Q8HP PRN Discharge Statement: "Patient was advised to return to the ER or call 911 if any headaches, dizziness, shortness of breath, chest pain, abdominal pain, bleeding, fevers, or worsening of medical condition. Patient was counseled about treatment plan, medications, possible side effects, patientverbalized understanding. All questions were answered to the best of my ability. This discharge took greater then 30 minutes in planning, reviewing documentation, counseling the patient, and discussing with other team members." ASSESSMENT ASSESSMENT Assessment 74-year-old female with a known history of hypertension, known CAD status post PCI initially admitted to the hospital with nausea and vomiting found to have 1. Intractable nausea and vomiting currently resolved 2. Urinary tract infection follow up urine culture 3. Known CAD status post PCI 4. Hypertension MARTELL HORNER MD Jul 21, 2025 16:48
[2025-07-21 17:41] VITALS: BP 148/95; PULSE 57
--- NOTE | 2025-07-23 09:12 | ECG ---
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
== END 2025-07-21 18:50 | disposition home or self-care (01) | DRG 690 ==
LOC: ER 16:37 → EDBD 16:37 → OVERFLOW 21:52 → WEST WING 23:51
PROVIDERS: ADMIT Internal Medicine; ATTEND Internal Medicine
DX: N30.00 Acute cystitis without hematuria (principal); K57.30 Diverticulosis of large intestine without perforation or abscess without bleeding; I10 Essential (primary) hypertension; I25.10 Atherosclerotic heart disease of native coronary artery without angina pectoris; F17.200 Nicotine dependence, unspecified, uncomplicated; N20.0 Calculus of kidney; Z98.61 Coronary angioplasty status; Z90.710 Acquired absence of both cervix and uterus; Z90.49 Acquired absence of other specified parts of digestive tract; Z86.73 Personal history of transient ischemic attack (TIA), and cerebral infarction without residual deficits; I25.2 Old myocardial infarction; Z88.5 Allergy status to narcotic agent; Z88.8 Allergy status to other drugs, medicaments and biological substances; Z79.899 Other long term (current) drug therapy; Z88.1 Allergy status to other antibiotic agents
CPT/HCPCS: 36415; 74176; 80053; 80061; 81001; 82306; 82607; 83036; 83690; 83735; 84100; 84443; 84484; 85025; 87081; 96360; G0378; J1956; J2405

== ENCOUNTER 2025-08-03 18:39 | Inpatient (IN) | payer MEDICAID, OTHER ==
[~2025-08-03] VITALS: Ht 167.6 cm; Wt 92.2 kg
[2025-08-03 03:10] VITALS: BP 158/74; PULSE 58; RESP 17; TEMP 97.5; O2SAT 96
[2025-08-03 05:00] VITALS: BP 148/77; PULSE 67; RESP 18; TEMP 97.6; O2SAT 96
--- NOTE | 2025-08-03 18:52 | ECG ---
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
[2025-08-03 19:18] LABS: Hematocrit 42.1 % (36.0-46.0); Hemoglobin 14.1 g/dL (12.2-16.2); Mean Corpuscular Hemoglobin 29.1 pg (28.0-32.0); Mean Corpuscular Volume 87.0 fL (80.0-100.0); Nucleated Red Blood Cells % 0.1 %
[2025-08-03 19:25] LABS: Potassium 4.4 mmol/L (3.5-5.1); Sodium 144 mmol/L (136-145)
[2025-08-03 19:26] LABS: Anion Gap 8 (5-15); Calcium 9.4 mg/dL (8.7-10.4); Carbon Dioxide 28 mmol/L (20-31)
[2025-08-03] MEDS: MECLIZINE HCL 25 MG TAB PO ONE (19:29)
[2025-08-03] MEDS: SODIUM CHLORIDE 0.9% 1,000 ML IV ONE (19:30)
[2025-08-03 19:31] LABS: BUN/Creatinine Ratio 9.8 (10.0-20.0); Blood Urea Nitrogen 12 mg/dL (9-23); Glucose 94 mg/dL (74-106)
[2025-08-03 19:32] LABS: Chloride 108 mmol/L (98-107)
--- NOTE | 2025-08-03 19:35 | DVH ---
CHEST RADIOGRAPH Indication: cp Technique: Frontal and lateral view of the chest was obtained Comparison: XY CHEST PORTABLE on DOS: 04/06/25, XY CHEST XRAY 1 VIEW on DOS: 02/09/25, XY CHEST PORTABLE on DOS: 07/01/24, XY CHEST TWO VIEWS ROUTINE on DOS: 01/04/24, XR CHEST 1 VIEW on DOS: 06/05/23 FINDINGS: Lines and Tubes: None Lungs: Increased interstitial prominence. This may represent pulmonary vascular congestion and/or vir al pneumonia. Pleura: No effusion.No pneumothorax. Cardiomediastinal contours: Vascular calcifications of the aorta. Bones: Unremarkable IMPRESSION: Increased interstitial prominence. This may represent pulmonary vascular congestion and/or viral pneumonia.
--- NOTE | 2025-08-03 19:38 | ED.PDOC ---
History of Present Illness HPI Comments 75 y/o F presents with c/c of nonradiating, right-sided chest pain. Patient endorses on sudden, unprovoked, and atraumatic onset of sharp and shooting pain 40x minutes prior to ED arrival. She rates said pain a 7/10 and states it feeling similar to when she had a [place] in 2020. Significant history of LOREE, CAD s /p PCI and 3x drug-eluting stents to the LAD in 2020, CKF, HLD, HTN, non-STEMI, TIA, UTI's, cholecystectomy, endometriosis, and active cigarette smoker (10x cigarettes/day). She reports associated nausea and 2x week dizziness history. Denies any shortness of breath, fever, chills, vomiting, or further acute symptoms. No endorsed recent additional ailments, stressors, strenuous acti vities, sick contacts, or further pertinent events or history. REVIEW OF SYSTEMS: General: No fever, no chills, or fatigue HEENT: No sore throat, no earache, no congestion, no neck pain. Cardiac: Chest pain. No palpitations. Lungs: No shortness of breath, no cough. GI: Nausea, no vomiting, no diarrhea, no constipation, no abdominal pain : No dysuria, frequency, or urgency. No hematuria. Musculoskeletal: No joint pain , no joint swelling, no extremity edema. Skin: No rash, no itching. Neuro: Dizziness, no headache, no weakness PHYSICAL EXAM: General: Awake, alert and oriented. No acute distress. Skin: Skin in warm, dry and intact. Appropriate color for ethnicity. HEENT: The head is normocephalic and atraumatic. Conjunctivae are clear without exudates or hemorrhage. Sclera is non-icteric. EOM are intact. No signs of nystagmus. Eyelids are normal in appearance without swelling or lesions. Oral mucosa is pink and moist Neck: The neck is supple with normal range of motion. No JVD. Cardiac: Heart rate and rhythm are normal. No murmurs, gallops, or rubs are auscultated. Respiratory: No signs of respiratory distress. Lung sounds are clear in all lobes bilaterally without rales, rhonchi, or wheezes. Abdominal: Abdomen is soft, non-tender without distention, guarding or rigidity. Bowel sounds are present and normoactive in all four quadrants. Extremities: Upper and lower extremities are atraumatic in appearance without deformity or edema. Neurological: The patient is awake, alert and oriented to person, place, and time with normal speech. Speech is clear. There is no facial asymmetry. Unsteady gait Psychiatric: Appropriate mood and affect. Good judgement and insight. Chief Complaint: Chest Pain Time Seen by MD: 18:50 Primary Care Provider: ? Reviewed Notes: Nurses Notes, Medications, Allergies Allergies: Coded Allergies: Cephalexin (Verified Allergy, Unknown, 01/25/17) Codeine (Verified Allergy, Unknown, 01/25/17) Hydrocodone (Verified Allergy, Unknown, 02/09/25) Ibuprofen (Verified Allergy, Unknown, 01/25/17) Home Meds Active Scripts Ondansetron Odt 4MG Tab (ZOFRAN PO) 4 Mg Tb, 4 MG PO Q8HP PRN for 10 Days, #30 TAB ODT TAB-DISSOLVE IN MOUTH, THEN SWALLOW Prov:ROMI AUSTIN DO 01/07/24 Guaifenesin (Guaifenesin) 200 Mg Tab, 200 MG PO BID PRN for 10 Days, #20 TAB Prov:ROIM AUSTIN DO 01/07/24 Azithromycin (Azithromycin) 250 Mg Tab, 250 MG PO DAILY MDD 500 for 5 Days, #6 TAB 0 Refills 2 TABLETS ORALLY ON DAY ONE, THEN 1 TABLET ORALLY DAILY FOR 4 DAYS Prov:ROMI AUSTIN DO 01/07/24 Methylprednisolone (Medrol Dosepak) 4 Mg Magdaleno, 4 MG PO UD, #21 TAB UAD Prov:BRAD NERGON MD 01/04/24 Albuterol Sulfate (VENTOLIN MDI) 90 Mcg Ih, 90 MCG IN PRN, #1 INH 0 Refills 2 inhalations every 4 to 6 hours as needed Prov:BRAD NEGRON MD 01/04/24 Reported Medications Ticagrelor Base (Brilinta) 60 Mg Tab, 1 TAB PO BID 01/05/24 Ranolazine (Ranolazine ER) 500 Mg Tab, 1 TAB PO BID 01/05/24 Ezetimibe (Ezetimibe) 10 Mg Tab, 1 TAB PO DAILY 01/05/24 Ticagrelor Base (BRILINTA) 90 Mg Tab, 1 TAB PO BID 01/31/22 Carvedilol (Carvedilol) 3.125 Mg Tab, 1 TAB PO BID 01/31/22 Aspirin (Aspirin Low Dose) 81 Mg Tab, 1 TAB PO DAILYPRN 01/31/22 Atorvastatin Calcium (ATORVASTATIN CALCIUM) 80 Mg Tab, 1 TAB PO DAILYPRN 01/31/22 Information Source: Patient Mode of Arrival: Ambulatory Severity: Moderate Timing: Minutes Duration: Since onset Prehospital treatment: None Past Medical History PAST MEDICAL HISTORY: CAD (s/p PCI), CKF, High Lipids, HTN, [place] (non-STEMI), TIA, UTI'S Past Medical History (Other): LOREE Surgical History: Cholecystectomy, , Hysterectomy, PTCA (PTCA with three drug-eluting stents to the LAD in [address] Holland) Surgical History (Other): PCI ETHOLOGIST History: Endometriosis Family History Family History: Reviewed,noncontributory to illness Social History Smoker: Less Than 1 Pack/Day (10x cigarettes/day ) Alcohol: Denies ETOH Use Drugs: Denies Drug Use Lives In: Home Was a procedure done? Was a procedure done?: No EKG EKG : Pulse Rate (adult): 77 Cardiac Rhythm: NSR Block: None Hypertrophy: None ST: Normal Comments No STEMI Differential Dx Considerations may include: Differential diagnoses considered include acute ischemic coronary syndrome, aortic dissection, cardiac tamponade, mediastinitis, pulmonary embolus, pneumothorax, tension pneumothorax, esophageal rupture, coronary artery vasospasm, myocarditis, pericarditis, pneumonia, pulmonary edema, esophageal tear, pancreatitis, aortic stenosis, dilated cardiomyopathy, hypertrophic cardiomyopathy, mitral valve prolapse, malignancy, pleuritis, pneumomediastinum, primary pulmonary hypertension, cholecystitis, esophageal spasm, esophagus, gastritis, GERD, peptic ulcer disease, costochondritis, fibromyalgia, rib fracture, herpes zoster, radicular syndromes, thoracic outlet syndrome, somatization. X-Ray, Labs, Meds, VS Vital Signs Date Time Temp Pulse Resp B/P (MAP) Pulse Ox O2 Delivery O2 Flow Rate FiO2 08/03/25 22:02 63 08/03/25 19:59 59 08/03/25 19:38 77 08/03/25 19:35 Room Air* 0 21 08/03/25 19:35 98.6 75 15 135/84 (101) 97 98.6 08/03/25 18:45 77 08/03/25 18:43 98.3 78 18 141/86 94 98.3 08/03/25 05:00 97.6 67 18 148/77 (100) 96 97.6 08/03/25 03:10 97.5 58 17 158/74 (102) 96 97.5 Lab Test 08/03/25 22:19 08/03/25 20:10 08/03/25 18:57 Range/Units Troponin I High Sensitivity 3 L < 3 L < 3 L </=34 ng/L White Blood Count 5.1 4.4-10.8 10^3/uL Red Blood Count 4.84 4.0-5.20 10^6/uL Hemoglobin 14.1 12.2-16.2 g/dL Hematocrit 42.1 36.0-46.0 % Mean Corpuscular Volume 87.0 80.0-100.0 fL Mean Corpuscular Hemoglobin 29.1 28.0-32.0 pg Mean Corpuscular Hemoglobin Concent 33.5 32.0-36.0 g/dL Red Cell Distribution Width 14.9 H 11.8-14.3 % Platelet Count 204 140-450 10^3/uL Mean Platelet Volume 8.5 6.9-10.8 fL Neutrophils (%) (Auto) 53.7 37.0-80.0 % Lymphocytes (%) (Auto) 33.7 10.0-50.0 % Monocytes (%) (Auto) 8.9 0.0-12.0 % Eosinophils (%) (Auto) 2.4 0.0-7.0 % Basophils (%) (Auto) 1.3 0.0-2.0 % Neutrophils # (Auto) 2.7 1.6-8.6 10 ^3/uL Lymphocytes # (Auto) 1.7 0.4-5.4 10 ^3/uL Monocytes # (Auto) 0.5 0-1.3 10 ^3/uL Eosinophils # (Auto) 0.1 0-0.8 10 ^3/uL Basophils # (Auto) 0.1 0-0.2 10 ^3/uL Nucleated Red Blood Cells 0.1 % Sodium Level 144 136-145 mmol/L Potassium Level 4.4 3.5-5.1 mmol/L Chloride Level 108 H 98-107 mmol/L Carbon Dioxide Level 28 20-31 mmol/L Anion Gap 8 5-15 Blood Urea Nitrogen 12 9-23 mg/dL Creatinine 1.22 H 0.550-1.02 mg/dL Glomerular Filtration Rate Calc 47 >90 mL/min BUN/Creatinine Ratio 9.8 L 10.0-20.0 Serum Glucose 94 74-106 mg/dL Calcium Level 9.4 8.7-10.4 mg/dL Microbiology Date/Time Source Procedure Growth Status 08/03/25 22:18 Blood Blood Culture - Preliminary NO GROWTH AFTER 24 HOURS OF INCUBATION. Resulted 08/03/25 22:00 Blood Blood Culture - Preliminary NO GROWTH AFTER 24 HOURS OF INCUBATION. Resulted [facility] [id number] [place] [address] Ph: [phone] DIAGNOSTIC IMAGING Diagnostic Imaging Report : [id number] Signed PATIENT: ZEKE IFNANTE ACCT: [id number] UNIT: [id number] : 1950 LOC: ER ROOM / BED: / AGE / SEX: 75 / F ADM STATUS: REG ER SERVICE 49 ORDERING PHYSICIAN: LUDY LIVE MD PROCEDURE(s): CXR2 - CHEST TWO VIEWS ROUTINE REASON: cp ORDER NUMBER(s): [id number], ACCESSION NUMBER(s): [id number] CHEST RADIOGRAPH Indication: cp Technique: Frontal and lateral view of the chest was obtained Comparison: XY CHEST PORTABLE on DOS: 04/06/25, XY CHEST XRAY 1 VIEW on DOS: 02/09/25, XY CHEST PORTABLE on DOS: 07/01/24, XY CHEST TWO VIEWS ROUTINE on DOS: 01/04/24, XR CHEST 1 VIEW on DOS: 06/05/23 FINDINGS: Lines and Tubes: None Lungs: Increased interstitial prominence. This may represent pulmonary vascular congestion and/or viral pneumonia. Pleura: No effusion.No pneumothorax. Cardiomediastinal contours: Vascular calcifications of the aorta. Bones: Unremarkable IMPRESSION: Increased interstitial prominence. This may represent pulmonary vascular congestion and/or viral pneumonia. ATED BY: JAIRO MCKAY MD DICTATED DATE/TIME: 08/03/251932 SIGNED BY: JAIRO MCKAY MD SIGNED DATE/TIME: 08/03/251932 CC: Time of 1ST Reevaluation: 19:20 Reevaluation 1ST: Unchanged Patient Education/Counseling: Treatment, Need For Follow Up Family Education/Counseling: No Family Present SEPSIS Sepsis Screen Date sepsis recognized/suspect: Aug 03, 2025 Time Sepsis recognized/suspect: 1847 Recent Procedure: No On Antibiotic Therapy: No Respiratory Rate >20: No Heart Rate >90: No Temp<36 C (96.8 F) or >38.3 C: No SBP <90 or MAP <65 mmHG: No New Acute Mental Status Change: No Is the patient on CPAP, BIPAP,: No Physician Orders Chest Two Views Routine (08/03/25 18:50) Electrocardigram (08/03/25 18:50) Electrocardigram (08/03/25 19:50) Electrocardigram (08/03/25 21:50) Fall Precautions Initiated (08/03/25 19:32) Orthostatic Vital Signs (08/03/25 ) Blood Culture (08/03/25 21:17) Aspirin Tablet (08/04/25 10:00) Atorvastatin (Lipitor) (08/04/25 22:00) Ticagrelor (Brilinta) (08/04/25 10:00) Azithromycin 500mg/ 250ml (Zithromax 50 (08/04/25 10:00) Hydralazine Injection (Apresoline Inject (08/03/25 22:45) Meclizine Tablet (Antivert Tablet) (08/03/25 22:45) Allergies (08/03/25 22:42) Code Status (08/03/25 22:42) Sodium Chloride Lock (Saline Lock Ns) (08/04/25 06:00) Oxygen Per Hour (08/03/25 22:42) Ondansetron Hcl (Zofran) (08/03/25 22:45) Docusate Sodium Capsule (Colace Capsule) (08/03/25 22:45) Fall Risk Precautions In Place QSHIFT (08/03/25 22:42) Cardiac Diet-2gna,Lofat,Lochol (08/04/25 Breakfast) Condition: Serious (08/03/25 22:42) Acetaminophen Tablet (Tylenol Tablet) (08/03/25 22:45) Maintain Bed Rest (08/03/25 22:42) Sequential Compression Device (08/03/25 ) Vital Signs Date Time Temp Pulse Resp B/P (MAP) Pulse Ox O2 Delivery O2 Flow Rate FiO2 08/03/25 22:02 63 08/03/25 19:59 59 08/03/25 19:38 77 08/03/25 19:35 Room Air* 0 21 08/03/25 19:35 98.6 75 15 135/84 (101) 97 98.6 08/03/25 18:45 77 08/03/25 18:43 98.3 78 18 141/86 94 98.3 08/03/25 05:00 97.6 67 18 148/77 (100) 96 97.6 08/03/25 03:10 97.5 58 17 158/74 (102) 96 97.5 Laboratory Tests Test 08/03/25 18:57 White Blood Count 5.1 10^3/uL (4.4-10.8) Departure 1 Departure Time of Disposition: 22:06 Impression: Primary Impression: Chest pain Disposition: ADMITTED INPATIENT Condition: Stable Comments MDM: Patient admitted to hospitalist service for further treatment, evaluation and monitoring. Extensive evaluation was performed in attempt to identify or rule out: (See d ifferential diagnosis section) The following tests were ordered, and results were reviewed by me and discussed with patient: (See diagnostic results section) I reviewed and agreed with the following test results read by other providers: Chest x-ray I reviewed the following notes from the pt's past medical encounters: July 01, 2024 and April 06, 2025 encounters for chest pain rule out ACS and acute chest pain, respectively. Also, August 05, 2021 encounter for NSTEMI. Decision regarding hospitalization or escalation of hospital level of care: Risk and benefits of admission for further treatment of patient's condition was considered. Due to patient's current clinical condition, high risk of decline and poor outcome if discharged and need for further inpatient management and monitoring, patient will be admitted to the hospital. Critical Care Note Critical Care Time?: No Stability Stability form required: No Heart Score Heart Score: Heart Score Response (Comments) Value History Highly Suspicious 2 EKG Normal 0 Age >65 2 Risk Factors >3 or Hx ASHD 2 Troponin Normal limit 0 Total 6 I personally scribed for LUDY LIVE MD ([email or web address]) on 08/03/25 at 19:38. Electronically submitted by Mickey Negron ([email or web address]). I personally scribed for LUDY LIVE MD ([email or web address]) on 08/03/25 at 20:49. Electronically submitted by Mickey Negron ([email or web address]). LUDY LIVE MD Aug 03, 2025 19:38
--- NOTE | 2025-08-03 20:03 | ECG ---
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
--- NOTE | 2025-08-03 22:29 | ECG ---
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
[2025-08-03] MEDS ORDERED: ACETAMINOPHEN 325 MG TAB PO PRN (22:45)
[2025-08-03] MEDS ORDERED: DOCUSATE SOD 100 MG CAP PO PRN (22:45)
[2025-08-03] MEDS ORDERED: ONDANSETRON HCL 4 MG/2 ML VIAL IV PRN (22:45)
[2025-08-03] MEDS ORDERED: MECLIZINE HCL 25 MG TAB PO PRN (22:45)
[2025-08-03] MEDS ORDERED: hydrALAZINE HCL 20 MG/ML VL IV PRN (22:45)
[2025-08-03] MEDS ORDERED: MORPHINE SULFATE INJ 2 MG/ml SYRG IV PRN (23:15)
[2025-08-03] MEDS ORDERED: NITROGLYCERIN 0.4 MG SL TAB SL PRN (23:15)
--- NOTE | 2025-08-03 23:18 | DVHHP2 ---
History of Present Illness Reason for Visit: Chest pain History of Present Illness The patient is a 75-year-old female with multiple past medical history including Coronary artery disease, chronic kidney disease, hypertension, and [place] who presented to [facility] ED with complaint of chest pain. Patient reports she has been experiencing left-sided chest pain, sharp in nature, nonradiating, rating 7/10 numeric scale, associated with nausea, and dizziness for the past 2 weeks. Patient was seen and evaluated in the ED, laboratory data shows WBC 5.1, platelets 204, sodium 144, potassium 4.4, BUN 12, creatinine 1.22, GFR 47, glucose 94, calcium 9.4, troponin < 3, blood pressure 135/84, heart rate 63, temperature 98.6 F, O2 saturation 97% on room air. Chest x-ray revealing increased interstitial prominence, this may represent pulmonary vascular congestion and/or viral pneumonia. Please see medication orders section in the computer. On my assessment, patient denied chest pain, no dizziness at this moment, headache, shortness of breath, no abdominal pain, diarrhea, nausea, vomiting, fever, no chills. Patient was admitted for further evaluation and medical management. Past Medical History CAD (s/p PCI), CKF, High Lipids, HTN, [place] (non-STEMI), TIA, UTI'S, LOREE, Endometriosis Past Surgical History Cholecystectomy, , Hysterectomy, PTCA (PTCA with 3 drug-eluting stents to the LAD in [address] Holland), PCI. Family History Reviewed, noncontributory to the management of this case. Past Social History The patient lives at home, smokes cigarettes less than 1 pack per day, denies alcohol or illicit drugs abuse. Review of Systems Constitutional: Yes: Weakness; No: Fever, Chills, Sweats, Malaise, Other Eyes: No: Pain, Vision change, Conjunctivae inflammation, Eyelid inflammation, Other, Redness ENT: No: Ear pain, Ear discharge, Nose pain, Nose discharge, Nose congestion, Mouth pain, Mouth swelling, Throat pain, Throat swelling, Other Respiratory: No: Cough, Dry, Shortness of breath, SOB with excertion, Wheezing, Hemoptysis, Pleuritic Pain, Sputum, Wheezing, Other Cardiovascular: Chest Pain; No: Palpitations, Orthopnea, Paroxysmal Noc. Dyspnea, Edema, Lt Headedness, Other Gastrointestinal: No: Nausea, Vomiting, Abdominal Pain, Diarrhea, Constipation, Melena, Hematochezia, Other Genitourinary: No Dysuria, No Frequency, No Incontinence, No Hematuria, No Retention, No Other Musculoskeletal: No: other, neck pain, shoulder pain, arm pain, back pain, hand pain, leg pain, foot pain Skin: No: Rash, Lesions, Jaundice, Bruising, Other Neurological: Other (Dizziness); No: Weakness, Numbness, Incoordination, Change in speech, Confusion, Seizures Allergies: Coded Allergies: Cephalexin (Verified Allergy, Unknown, 01/25/17) Codeine (Verified Allergy, Unknown, 01/25/17) Hydrocodone (Verified Allergy, Unknown, 02/09/25) Ibuprofen (Verified Allergy, Unknown, 01/25/17) Medications Current Medications Medications Dose Ordered Sig/Natacha Route Start Time Stop Time Status Last Admin Dose Admin Aspirin 81 mg DAILY PO 08/04/25 10:00 Atorvastatin Calcium 40 mg HS PO 08/04/25 22:00 Ticagrelor 60 mg BID PO 08/04/25 10:00 Azithromycin 250 ml @ 125 mls/hr DAILY IV 08/04/25 10:00 Hydralazine HCl 10 mg Q6HP PRN IV 08/03/25 22:45 Meclizine HCl 25 mg [id number] PRN PO 08/03/25 22:45 Sodium Chloride 10 ml Q8HR IV 08/04/25 06:00 Ondansetron HCl 4 mg Q4HP PRN IV 08/03/25 22:45 Docusate Sodium 100 mg BIDPRN PRN PO 08/03/25 22:45 Acetaminophen 650 mg Q6HP PRN PO 08/03/25 22:45 Exam Vital Signs Vital Signs Date Time Temp Pulse Resp B/P (MAP) Pulse Ox O2 Delivery O2 Flow Rate FiO2 08/03/25 22:02 63 08/03/25 19:35 Room Air* 0 21 08/03/25 19:35 98.6 15 135/84 (101) 97 98.6 General Appearance: Alert, Oriented X3, Cooperative, No acute distress HEENT: Atraumatic, PERRLA, EOMI, Mucous membr. moist/pink Respiratory: Normal air movement Cardiovascular: Regular rate, Normal S1, Normal S2, No murmurs Abdominal: Normal bowel sounds, Soft, No tenderness, No hepatospenomegaly, No masses Extremities: No clubbing, No cyanosis, No edema, Normal pulses, No tenderness/swelling Skin: No rashes, No significant lesion Neuro: Normal speech, Normal tone, Sensation intact, Cranial nerves 3-12 NL, Reflexes 2+, Other (Generalized weakness) Psych/Mental Status: Mental status NL, Mood NL Labs/Xrays Labs Test 08/03/25 22:19 08/03/25 18:57 Range/Units Troponin I High Sensitivity 3 L </=34 ng/L White Blood Count 5.1 4.4-10.8 10^3/uL Red Blood Count 4.84 4.0-5.20 10^6/uL Hemoglobin 14.1 12.2-16.2 g/dL Hematocrit 42.1 36.0-46.0 % Mean Corpuscular Volume 87.0 80.0-100.0 fL Mean Corpuscular Hemoglobin 29.1 28.0-32.0 pg Mean Corpuscular Hemoglobin Concent 33.5 32.0-36.0 g/dL Red Cell Distribution Width 14.9 H 11.8-14.3 % Platelet Count 204 140-450 10^3/uL Mean Platelet Volume 8.5 6.9-10.8 fL Neutrophils (%) (Auto) 53.7 37.0-80.0 % Lymphocytes (%) (Auto) 33.7 10.0-50.0 % Monocytes (%) (Auto) 8.9 0.0-12.0 % Eosinophils (%) (Auto) 2.4 0.0-7.0 % Basophils (%) (Auto) 1.3 0.0-2.0 % Neutrophils # (Auto) 2.7 1.6-8.6 10 ^3/uL Lymphocytes # (Auto) 1.7 0.4-5.4 10 ^3/uL Monocytes # (Auto) 0.5 0-1.3 10 ^3/uL Eosinophils # (Auto) 0.1 0-0.8 10 ^3/uL Basophils # (Auto) 0.1 0-0.2 10 ^3/uL Nucleated Red Blood Cells 0.1 % Sodium Level 144 136-145 mmol/L Potassium Level 4.4 3.5-5.1 mmol/L Chloride Level 108 H 98-107 mmol/L Carbon Dioxide Level 28 20-31 mmol/L Anion Gap 8 5-15 Blood Urea Nitrogen 12 9-23 mg/dL Creatinine 1.22 H 0.550-1.02 mg/dL Glomerular Filtration Rate Calc 47 >90 mL/min BUN/Creatinine Ratio 9.8 L 10.0-20.0 Serum Glucose 94 74-106 mg/dL Calcium Level 9.4 8.7-10.4 mg/dL PATIENT: ZEKE INFANTE ACCT: [id number] UNIT: [id number] : 1950 LOC: ER ROOM / BED: / AGE / SEX: 75 / F ADM STATUS: REG ER SERVICE 49 ORDERING PHYSICIAN: LUDY LIVE MD PROCEDURE(s): CXR2 - CHEST TWO VIEWS ROUTINE REASON: cp ORDER NUMBER(s): [id number], ACCESSION NUMBER(s): [id number] CHEST RADIOGRAPH Indication: cp Technique: Frontal and lateral view of the chest was obtained Comparison: XY CHEST PORTABLE on DOS: 04/06/25, XY CHEST XRAY 1 VIEW on DOS: 02/09/25, XY CHEST PORTABLE on DOS: 07/01/24, XY CHEST TWO VIEWS ROUTINE on DOS: 01/04/24, XR CHEST 1 VIEW on DOS: 06/05/23 FINDINGS: Lines and Tubes: None Lungs: Increased interstitial prominence. This may represent pulmonary vascular congestion and/or viral pneumonia. Pleura: No effusion.No pneumothorax. Cardiomediastinal contours: Vascular calcifications of the aorta. Bones: Unremarkable IMPRESSION: Increased interstitial prominence. This may represent pulmonary vascular congestion and/or viral pneumonia. SEPSIS Sepsis Screen Date sepsis recognized/suspect: Aug 03, 2025 Time Sepsis recognized/suspect: 1847 Recent Procedure: No On Antibiotic Therapy: No Respiratory Rate >20: No Heart Rate >90: No Temp<36 C (96.8 F) or >38.3 C: No SBP <90 or MAP <65 mmHG: No New Acute Mental Status Change: No Is the patient on CPAP, BIPAP,: No Physician Orders Chest Two Views Routine (08/03/25 18:50) Fall Precautions Initiated (08/03/25 19:32) Orthostatic Vital Signs (08/03/25 ) Blood Culture (08/03/25 21:17) Aspirin Tablet (08/04/25 10:00) Atorvastatin (Lipitor) (08/04/25 22:00) Ticagrelor (Brilinta) (08/04/25 10:00) Azithromycin 500mg/ 250ml (Zithromax 50 (08/04/25 10:00) Azithromycin 500mg/ 250ml (Zithromax 50 (08/03/25 22:45) Hydralazine Injection (Apresoline Inject (08/03/25 22:45) Meclizine Tablet (Antivert Tablet) (08/03/25 22:45) Allergies (08/03/25 22:42) Code Status (08/03/25 22:42) Sodium Chloride Lock (Saline Lock Ns) (08/04/25 06:00) Oxygen Per Hour (08/03/25 22:42) Ondansetron Hcl (Zofran) (08/03/25 22:45) Docusate Sodium Capsule (Colace Capsule) (08/03/25 22:45) Fall Risk Precautions In Place QSHIFT (08/03/25 22:42) Complete Blood Count (08/04/25 04:00) Comprehensive Metabolic Panel (08/04/25 04:00) Cardiac Diet-2gna,Lofat,Lochol (08/04/25 Breakfast) Condition: Serious (08/03/25 22:42) Acetaminophen Tablet (Tylenol Tablet) (08/03/25 22:45) Maintain Bed Rest (08/03/25 22:42) Sequential Compression Device (08/03/25 ) Admit (08/03/25 23:14) Nitroglycerin Sublingual (Ntrostat Subli (08/03/25 23:15) Morphine Sulfate Injection (08/03/25 23:15) Stat Ekg For Chest Pain (08/03/25 23:14) Notify Md Of Changes From Base (08/03/25 23:14) Branch Operations Coordinator For 24 Hours (08/03/25 23:14) Emergency Dysrhythmia Protocol (08/03/25 23:14) Rhythm Strips Once Every Shift (08/03/25 23:14) Oxygen By Nasal Cannula (08/03/25 23:14) Vital Signs Date Time Temp Pulse Resp B/P (MAP) Pulse Ox O2 Delivery O2 Flow Rate FiO2 08/03/25 22:02 63 08/03/25 19:59 59 08/03/25 19:38 77 08/03/25 19:35 Room Air* 0 21 08/03/25 19:35 98.6 75 15 135/84 (101) 97 98.6 08/03/25 18:45 77 08/03/25 18:43 98.3 78 18 141/86 94 98.3 Laboratory Tests Test 08/03/25 18:57 White Blood Count 5.1 10^3/uL (4.4-10.8) Medications Medications Dose Ordered Sig/Natacha Route Start Time Stop Time Status Last Admin Dose Admin Meclizine HCl 50 mg ONCE ONCE PO 08/03/25 19:00 08/03/25 19:01 DC 08/03/25 19:29 50 MG Sodium Chloride 1,000 ml @ 1,000 mls/hr Q1H ONCE IV 08/03/25 19:00 08/03/25 19:59 DC 08/03/25 19:30 1,000 MLS/HR Assessment/Plan Assessment/Plan Chest pain Dizziness Generalized weakness Pneumonia, unspecified organism Plan 1. Admit to telemetry unit 2. Breathing treatment 3. Pain control management 4. IV antibiotic management 5. Management of fluids and electrolytes 6. Consultation for hospitalist 7. Diagnostic test chest x-ray 8. DVT prophylaxis-on aspirin 9. Repeat labs CBC, CMP in a.m. 10. Home medication reviewed and reconciled 11. Continue with current medical management 12. Treatment plan discussed with patient and RN. Patient verbalized understanding. Plan discussed with: Patient, Other (RN) My Orders Orders - VIV HARRIS DNP Procedure Category Date Status Time Aspirin Tablet PHA 08/04/25 In Process 10:00 Atorvastatin (Lipitor) PHA 08/04/25 In Process 22:00 Ticagrelor (Brilinta) PHA 08/04/25 In Process 10:00 Azithromycin 500mg/ PHA 08/04/25 In Process 250ml (Zithromax 50 10:00 Azithromycin 500mg/ PHA 08/03/25 In Process 250ml (Zithromax 50 22:45 Hydralazine Injection PHA 08/03/25 In Process (Apresoline Inject 22:45 Meclizine Tablet PHA 08/03/25 In Process (Antivert Tablet) 22:45 Allergies SAIGE 08/03/25 In Process 22:42 Code Status CODE 08/03/25 Transmitted 22:42 Sodium Chloride Lock PHA 08/04/25 In Process (Saline Lock Ns) 06:00 Oxygen Per Hour RT 08/03/25 Transmitted 22:42 Ondansetron Hcl PHA 08/03/25 In Process (Zofran) 22:45 Docusate Sodium PHA 08/03/25 In Process Capsule (Colace 22:45 Fall Risk Precautions SAIGE 08/03/[address] 22:42 Complete Blood Count LAB 08/04/25 Verified 04:00 Comprehensive LAB 08/04/25 Verified Metabolic Panel 04:00 Cardiac DIET 08/04/25 Transmitted Diet-2gna,Lofat,Lochol Breakfast Condition: Serious SAIGE 08/03/25 In Process 22:42 Acetaminophen Tablet PHA 08/03/25 In Process (Tylenol Tablet) 22:45 Maintain Bed Rest SAIGE 08/03/25 In Process 22:42 Sequential SAIGE 08/03/25 In Process Compression Device Admit ADMIT 08/03/25 Verified 23:14 Nitroglycerin [facility] 08/03/25 Verified Sublingual (Ntrostat 23:15 Morphine Sulfate [facility] 08/03/25 Verified Injection 23:15 Stat Ekg For Chest [facility] [place] 08/03/25 Verified Pain 23:14 Notify Md Of Changes [facility] [place] 08/03/25 Verified From Base 23:14 Branch Operations Coordinator For [facility] [place] 08/03/25 Verified 24 Hours 23:14 Emergency Dysrhythmia [facility] [place] 08/03/25 Verified Protocol 23:14 Rhythm Strips Once [facility] [place] 08/03/25 Verified Every Shift 23:14 Oxygen By Nasal RT 08/03/25 Verified Cannula 23:14 Problem List: (1) Chest pain (2) Dizziness (3) Generalized weakness (4) Pneumonia, unspecified organism Date of Service: Aug 03, 2025 Billing Provider: VIV HARRIS DNP Common Visit Codes: [id number] INP/OBS CARE (HIGH) VIV HARRIS DNP Aug 03, 2025 23:18
[2025-08-03] MEDS: AZITHROMYCIN 500MG/ 250ML 250 ML IV ONE (23:19)
[2025-08-03 23:57] VITALS: PULSE 58; RESP 17; O2SAT 96
[2025-08-04] MEDS: SODIUM CHLOR 0.9% PF (SALINE LOCK) 10ML VIAL/SYR IV SCH (06:00)
[2025-08-04 06:31] LABS: Hematocrit 38.0 % (36.0-46.0); Hemoglobin 12.8 g/dL (12.2-16.2); Mean Corpuscular Hemoglobin 29.2 pg (28.0-32.0); Mean Corpuscular Volume 86.6 fL (80.0-100.0); Nucleated Red Blood Cells % 0.1 %
[2025-08-04 06:56] LABS: Alanine Aminotransferase 10 U/L (7-40); Albumin 3.6 g/dL (3.2-4.8); Alkaline Phosphatase 74 U/L (46-116); Anion Gap 10 (5-15); BUN/Creatinine Ratio 11.2 (10.0-20.0); Bilirubin, Total 0.5 mg/dL (0.2-1.0); Blood Urea Nitrogen 11 mg/dL (9-23); Carbon Dioxide 25 mmol/L (20-31); Glucose 85 mg/dL (74-106); Potassium 3.7 mmol/L (3.5-5.1); Sodium 143 mmol/L (136-145); Total Protein 5.9 g/dL (5.7-8.2)
[2025-08-04 07:09] LABS: Calcium 8.7 mg/dL (8.7-10.4); Chloride 108 mmol/L (98-107)
[2025-08-04 08:00] VITALS: PULSE 55; RESP 13; O2SAT 96
[2025-08-04 09:00] VITALS: BP 167/91; PULSE 65; RESP 13; TEMP 96.6; O2SAT 100
[2025-08-04] MEDS: AZITHROMYCIN 500MG/ 250ML 250 ML IV SCH (09:15)
[2025-08-04] MEDS: TICAGRELOR 60 MG TAB PO SCH (09:17)
[2025-08-04 13:02] VITALS: BP_SYST 130; BP_DIAS 73; BP_DIAS 76; PULSE 60; RESP 19; TEMP 97.3; O2SAT 95
--- NOTE | 2025-08-04 14:18 | DVHPN2 ---
Reviewed: H&P Changes from previous H/P or p: No Changes General: Per HPI Eyes: No Pain, No Vision change, No Conjunctivae inflammation, No Eyelid inflammation, No Other, No Redness ENT: No Ear pain, No Ear discharge, No Nose pain, No Nose discharge, No Nose congestion, No Mouth pain, No Mouth swelling, No Throat pain, No Throat swelling, No Other Cardiovascular: Chest Pain; No Palpitations, No Orthopnea, No Paroxysmal Noc. Dyspnea, No Edema, No Lt Headedness, No Other Respiratory: No Cough, No Dry, No Shortness of breath, No SOB with excertion, No Wheezing, No Hemoptysis, No Pleuritic Pain, No Sputum, No Other Gastrointestinal: No Nausea, No Vomiting, No Abdominal Pain, No Diarrhea, No Constipation, No Melena, No Hematochezia, No Other Genitourinary: No Dysuria, No Frequency, No Incontinence, No Hematuria, No Retention, No Other Musculoskeletal: No other, No neck pain, No shoulder pain, No arm pain, No back pain, No hand pain, No leg pain, No foot pain Skin: No Rash, No Lesions, No Jaundice, No Bruising, No Other Objective Vitals Vital Signs Date Time Temp Pulse Resp B/P (MAP) Pulse Ox O2 Delivery O2 Flow Rate FiO2 08/04/25 13:02 97.3 60 19 130/76 (94) 95 97.3 08/04/25 08:00 Room Air* 0 21 Intake/Output Intake and Output 08/04/25 07:00 Intake Total 0 ml Balance 0 ml Intake Oral 0 ml Exam GEN: Healthy appearing, well-developed, NAD. HEENT: NC/AT; MMM. CV: RRR, no m/r/g. LUNGS: CTAB, no w/r/c. ABD: Epigastrium tenderness, obese abdomen EXT: skin Warm, well perfused. no rashes. No clubbing, cyanosis, or edema. NEURO: Ambulating with no limitations. No focal deficits. Medications Current Medications Medications Dose Ordered Sig/Natacha Route Start Time Stop Time Status Last Admin Dose Admin Aspirin 81 mg DAILY PO 08/04/25 10:00 08/04/25 09:15 81 MG Atorvastatin Calcium 40 mg HS PO 08/04/25 22:00 Ticagrelor 60 mg BID PO 08/04/25 10:00 08/04/25 09:17 60 MG Azithromycin 250 ml @ 125 mls/hr DAILY IV 08/04/25 10:00 08/04/25 09:15 125 MLS/HR Hydralazine HCl 10 mg Q6HP PRN IV 08/03/25 22:45 Meclizine HCl 25 mg [id number] PRN PO 08/03/25 22:45 Sodium Chloride 10 ml Q8HR IV 08/04/25 06:00 08/04/25 06:00 10 ML Ondansetron HCl 4 mg Q4HP PRN IV 08/03/25 22:45 Docusate Sodium 100 mg BIDPRN PRN PO 08/03/25 22:45 Acetaminophen 650 mg Q6HP PRN PO 08/03/25 22:45 Nitroglycerin 0.4 mg Q5MINP PRN SL 08/03/25 23:15 Morphine Sulfate 2 mg Q30M PRN IV 08/03/25 23:15 Laboratory Results Laboratory Tests 08/04/25 05:57 Chemistry Test 08/03/25 18:57 08/04/25 05:57 Calcium Level 9.4 mg/dL (8.7-10.4) 8.7 mg/dL (8.7-10.4) Albumin 3.6 g/dL (3.2-4.8) Total Protein 5.9 g/dL (5.7-8.2) LFT Test 08/04/25 05:57 Alanine Aminotransferase (ALT) 10 U/L (7-40) Alkaline Phosphatase 74 U/L (46-116) Aspartate Amino Transferase (AST) 12 U/L (13-40) L Total Bilirubin 0.5 mg/dL (0.2-1.0) Microbiology Microbiology Date/Time Source Procedure Growth Status 08/04/25 03:59 Nose MRSA Screen - Final Complete Labs and/or images reviewed: Labs reviewed by me, Image(s) reviewed by me Assessment/Plan Assessment/Plan 75-year-old female with multiple past medical history including Coronary artery disease, chronic kidney disease, hypertension, and [place] who presented to [facility] ED with complaint of chest pain. Patient reports she has been experiencing left-sided chest pain, sharp in nature, nonradiating, rating 7/10 numeric scale, associated with nausea, and dizziness for the past 2 weeks. Diagnosis: Gastroenteritis possible, infectious etiology likely Gastritis possible chest pain due to above Cough due to, Viral infection possible History of coronary artery disease CKD Hypertension History of [place] Plan: Continue cardiac diet Continuing tele Troponins negative, continue to monitor chest pain protocol IV antibiotics for possible gastroenteritis ceftriaxone Flagyl Protonix IV daily Continue home medications Tele Full code Plan discussed with: Patient Date of Service: Aug 04, 2025 Billing Provider: CORY VANEGAS MD Common Visit Codes: [id number] INP/OBS CARE(HIGH) CORY VANEGAS MD Aug 04, 2025 14:18
[2025-08-04] MEDS: PANTOPRAZOLE 40 MG/10 ML VIAL INJ IV SCH (16:19)
[2025-08-04] MEDS: SUCRALFATE 1 GM/10 ML ORAL SUSP PO SCH (16:19)
[2025-08-04 16:53] VITALS: BP 154/93; PULSE 66; RESP 17; TEMP 97.7; O2SAT 96
[2025-08-04 20:00] VITALS: PULSE 70
[2025-08-04 21:00] VITALS: BP 135/77; PULSE 61; RESP 18; TEMP 98.2; O2SAT 96
[2025-08-04] MEDS: ATORVASTATIN 20 MG TAB PO SCH (22:12)
[2025-08-05] VITALS (7 sets, daily range): BP systolic 111–153; BP diastolic 63–95; PULSE 73–102; RESP 16–20; TEMP 36.8; O2SAT 94–99
[2025-08-05 07:31] LABS: Hematocrit 42.2 % (36.0-46.0); Hemoglobin 14.3 g/dL (12.2-16.2); Mean Corpuscular Hemoglobin 29.3 pg (28.0-32.0); Mean Corpuscular Volume 86.4 fL (80.0-100.0); Nucleated Red Blood Cells % 0.1 %
[2025-08-05 07:47] LABS: Alanine Aminotransferase 10 U/L (7-40); Albumin 4.3 g/dL (3.2-4.8); Alkaline Phosphatase 85 U/L (46-116); Anion Gap 11 (5-15); BUN/Creatinine Ratio 9.6 (10.0-20.0); Bilirubin, Total 0.7 mg/dL (0.2-1.0); Blood Urea Nitrogen 12 mg/dL (9-23); Calcium 9.4 mg/dL (8.7-10.4); Carbon Dioxide 25 mmol/L (20-31); Chloride 106 mmol/L (98-107); Glucose 84 mg/dL (74-106); Potassium 3.8 mmol/L (3.5-5.1); Sodium 142 mmol/L (136-145); Total Protein 7.0 g/dL (5.7-8.2)
--- NOTE | 2025-08-05 10:55 | DVHDS2 ---
Discharge Summary Date of Admission Aug 03, 2025 at 23:14 Date of Discharge: Aug 05, 2025 Labs/Diagnostic Data: Laboratory Results Test 08/05/25 06:51 08/03/25 22:19 White Blood Count 5.0 10^3/uL (4.4-10.8) Red Blood Count 4.89 10^6/uL (4.0-5.20) Hemoglobin 14.3 g/dL (12.2-16.2) Hematocrit 42.2 % (36.0-46.0) Mean Corpuscular Volume 86.4 fL (80.0-100.0) Mean Corpuscular Hemoglobin 29.3 pg (28.0-32.0) Mean Corpuscular Hemoglobin Concent 34.0 g/dL (32.0-36.0) Red Cell Distribution Width 14.7 % (11.8-14.3) Platelet Count 186 10^3/uL (140-450) Mean Platelet Volume 8.5 fL (6.9-10.8) Neutrophils (%) (Auto) 70.7 % (37.0-80.0) Lymphocytes (%) (Auto) 19.9 % (10.0-50.0) Monocytes (%) (Auto) 7.0 % (0.0-12.0) Eosinophils (%) (Auto) 1.8 % (0.0-7.0) Basophils (%) (Auto) 0.6 % (0.0-2.0) Neutrophils # (Auto) 3.5 10 ^3/uL (1.6-8.6) Lymphocytes # (Auto) 1.0 10 ^3/uL (0.4-5.4) Monocytes # (Auto) 0.3 10 ^3/uL (0-1.3) Eosinophils # (Auto) 0.1 10 ^3/uL (0-0.8) Basophils # (Auto) 0 10 ^3/uL (0-0.2) Nucleated Red Blood Cells 0.1 % Sodium Level 142 mmol/L (136-145) Potassium Level 3.8 mmol/L (3.5-5.1) Chloride Level 106 mmol/L (98-107) Carbon Dioxide Level 25 mmol/L (20-31) Anion Gap 11 (5-15) Blood Urea Nitrogen 12 mg/dL (9-23) Creatinine 1.25 mg/dL (0.550-1.02) Glomerular Filtration Rate Calc 46 mL/min (>90) BUN/Creatinine Ratio 9.6 (10.0-20.0) Serum Glucose 84 mg/dL (74-106) Calcium Level 9.4 mg/dL (8.7-10.4) Total Bilirubin 0.7 mg/dL (0.2-1.0) Aspartate Amino Transferase (AST) 16 U/L (13-40) Alanine Aminotransferase (ALT) 10 U/L (7-40) Alkaline Phosphatase 85 U/L (46-116) Total Protein 7.0 g/dL (5.7-8.2) Albumin 4.3 g/dL (3.2-4.8) Troponin I High Sensitivity 3 ng/L (</=34) Other Laboratory Tests 08/05/25 06:51 Brief Hx & Hospital Course: 75-year-old female with multiple past medical history including Coronary artery disease, chronic kidney disease, hypertension, and [place] who presented to [facility] ED with complaint of chest pain. Patient reports she has been experiencing left-sided chest pain, sharp in nature, nonradiating, rating 7/10 numeric scale, associated with nausea, and dizziness for the past 2 weeks. 08/05: Patient tolerating diet, appears to be doing voluntary guarding, ambulating. Vital signs stable, stable for discharge as per plan below. Patient will need treatment for gastroenteritis. Augmentin 875 twice daily for 3 days, Protonix 40 mg once daily for 1 month,, Carafate 1 g twice daily for 7 days,. Follow up with PCP to review discharge. Continue other home medications not mentioned above. PCP to consider GI referral for longstanding nausea and epigastric pain. Diagnosis: Gastroenteritis possible, infectious etiology likely Gastritis possible chest pain due to above Cough due to, Viral infection possible History of coronary artery disease CKD Hypertension History of [place] plan: - Augmentin 875 twice daily for 3 days, - Protonix 40 mg once daily for 1 month, Carafate 1 g twice daily for 7 days,. - Follow up with PCP to review discharge. - Continue other home medications not mentioned above. - PCP to consider GI referral for longstanding nausea and epigastric pain. Condition at Discharge: Fair Final Diagnosis/Problems List Gastroenteritis possible, infectious etiology likely Gastritis possible chest pain due to above Cough due to, Viral infection possible History of coronary artery disease CKD Hypertension History of [place] Discharge Disposition: Home Discharge Instruct/Medications Scheduled Albuterol Sulfate (Ventolin Mdi), 90 MCG IN PRN Amoxicillin & Pot Clavulanate (Augmentin Tablet), 875 MG PO BID Aspirin (Aspirin Low Dose), 1 TAB PO DAILYPRN, (Reported) Atorvastatin Calcium (Atorvastatin Calcium), 1 TAB PO DAILYPRN, (Reported) Azithromycin (Azithromycin), 250 MG PO DAILY Carvedilol (Carvedilol), 1 TAB PO BID, (Reported) Ezetimibe (Ezetimibe), 1 TAB PO DAILY, (Reported) Methylprednisolone (Medrol Dosepak), 4 MG PO UD Pantoprazole Sodium Sesquihydr (Protonix), 40 MG PO DAILY Ranolazine (Ranolazine ER), 1 TAB PO BID, (Reported) Sucralfate (Carafate), 1 GM PO BID Ticagrelor Base (Brilinta), 1 TAB PO BID, (Reported) Ticagrelor Base (Brilinta), 1 TAB PO BID, (Reported) Scheduled PRN Guaifenesin (Guaifenesin), 200 MG PO BID PRN Ondansetron Odt 4MG Tab (Zofran Po), 4 MG PO Q8HP PRN Discharge Statement: "Patient was advised to return to the ER or call 911 if any headaches, dizziness, shortness of breath, chest pain, abdominal pain, bleeding, fevers, or worsening of medical condition. Patient was counseled about treatment plan, medications, possible side effects, patientverbalized understanding. All questions were answered to the best of my ability. This discharge took greater then 30 minutes in planning, reviewing documentation, counseling the patient, and discussing with other team members." ASSESSMENT ASSESSMENT Assessment Date of Service: Aug 05, 2025 Billing Provider: CORY VANEGAS MD Common Visit Codes: [id number] DISCH DAY >30min CORY VANEGAS MD Aug 05, 2025 10:55
[2025-08-05] MEDS ORDERED: AUG875T PO (12:12)
[2025-08-05] MEDS ORDERED: PANT40TA2 PO (12:12)
[2025-08-05] MEDS ORDERED: SUCR1TAB31 PO (12:12)
[2025-08-05 17:45] LABS: COVID19 ANTIGEN SOFIA FIA NEGATIVE (NEGATIVE)
== END 2025-08-05 17:15 | disposition home or self-care (01) | DRG 391 ==
LOC: ER 18:39 → OVERFLOW 23:14 → TELE-WESTW 08-04 03:18
PROVIDERS: ADMIT Student in an Organized Health Care Education/Training Program; ATTEND Student in an Organized Health Care Education/Training Program
DX: K29.70 Gastritis, unspecified, without bleeding (principal); J15.69 Pneumonia due to other Gram-negative bacteria; J15.9 Unspecified bacterial pneumonia; A09 Infectious gastroenteritis and colitis, unspecified; B34.9 Viral infection, unspecified; N18.9 Chronic kidney disease, unspecified; Z20.822 Contact with and (suspected) exposure to COVID-19; E78.5 Hyperlipidemia, unspecified; F17.210 Nicotine dependence, cigarettes, uncomplicated; I12.9 Hypertensive chronic kidney disease with stage 1 through stage 4 chronic kidney disease, or unspecified chronic kidney disease; I25.10 Atherosclerotic heart disease of native coronary artery without angina pectoris; I25.2 Old myocardial infarction; Z86.73 Personal history of transient ischemic attack (TIA), and cerebral infarction without residual deficits; Z88.1 Allergy status to other antibiotic agents; Z88.5 Allergy status to narcotic agent; Z88.6 Allergy status to analgesic agent; Z90.710 Acquired absence of both cervix and uterus; Z98.61 Coronary angioplasty status; Z90.49 Acquired absence of other specified parts of digestive tract
CPT/HCPCS: 36415; 71046; 80048; 80053; 84484; 85025; 87040; 87081; 87426; 93005; 96360; G0378; J1956; J2470; J3490

== ENCOUNTER 2025-08-15 12:49 | Outpatient (CLI) | payer MEDICAID, OTHER ==
[~2025-08-15 12:49] MED LIST changes: +AUG875T PO; -AZIT-43 PO; -GUAI200T6 PO; -METH4PAK PO; +PANT40TA2 PO; +SUCR1TAB31 PO; -TICA90TA PO
[2025-08-15 14:10] LABS: Alanine Aminotransferase 15 U/L (7-40); Alkaline Phosphatase 83 U/L (46-116); Anion Gap 7 (5-15); BUN/Creatinine Ratio 10.1 (10.0-20.0); Blood Urea Nitrogen 11 mg/dL (9-23); Calcium 9.4 mg/dL (8.7-10.4); Carbon Dioxide 27 mmol/L (20-31); Chloride 106 mmol/L (98-107); Glucose 88 mg/dL (74-106); Potassium 4.5 mmol/L (3.5-5.1); Sodium 140 mmol/L (136-145); Total Protein 6.9 g/dL (5.7-8.2); Uric Acid 4.4 mg/dL (3.1-7.8)
[2025-08-15 14:11] LABS: Albumin 4.3 g/dL (3.2-4.8); Bilirubin, Total 0.8 mg/dL (0.2-1.0)
[2025-08-15 14:12] LABS: Urine Budding Yeast OCCASIONAL /hpf (None Seen); Urine Protein, UAD TRACE (Negative)
[2025-08-15 14:36] LABS: Triglycerides 104 mg/dL (< 150)
[2025-08-15 14:38] LABS: Cholesterol 142 mg/dL (< 200); HDL Cholesterol 49 mg/dL (40-59)
== END 2025-08-15 17:00 | disposition home or self-care (01) ==
LOC: LAB 12:49
PROVIDERS: ATTEND Internal Medicine
DX: E78.49 Other hyperlipidemia (principal); E61.2 Magnesium deficiency; E79.0 Hyperuricemia without signs of inflammatory arthritis and tophaceous disease; E55.9 Vitamin D deficiency, unspecified; D51.9 Vitamin B12 deficiency anemia, unspecified; R82.79 Other abnormal findings on microbiological examination of urine; R82.90 Unspecified abnormal findings in urine; R82.998 Other abnormal findings in urine; R94.6 Abnormal results of thyroid function studies; R68.89 Other general symptoms and signs; R73.09 Other abnormal glucose
CPT/HCPCS: 36415; 80053; 80061; 81001; 82306; 82607; 82746; 83036; 84443; 84550; 87086

== ENCOUNTER 2025-09-27 23:49 | Inpatient (IN) | payer MEDICAID, OTHER ==
[~2025-09-27] VITALS: Ht 167.6 cm; Wt 85.1 kg
[2025-09-28] VITALS (8 sets, daily range): BP systolic 118–136; BP diastolic 54–76; PULSE 61–76; RESP 17–20; TEMP 97.9–98.1; O2SAT 94–98
--- NOTE | 2025-09-28 00:16 | ED.PDOC ---
HPI Comments HPI: Poor Historian. 75-year-old female presents to emergency depart for evaluation of midsternal chest pain nonradiating that started 5:00 a.m. this evening. Daughter called 911. Patient initial blood pressure was 160/90. Patient was given nitroglycerin and aspirin prior to arrival. Patient's blood pressure improved. patient states having similar symptoms in the past, Past Medical History: Mi, hypertension, hyperlipidemia coronary artery disease Past Surgical History: Hysterectomy, cardiac stent placement, REVIEW OF SYSTEMS: CONSTITUTIONAL: Denies acute: fever, diaphoresis, chills, generalized weakness. HEAD: Denies acute: headache, photophobia Eyes: Denies acute: Double vision, vision loss, eye pain, eye discharge. EARS: Denies acute: tinnitus, hearing loss, ear discharge, ear pain, THROAT: Denies acute: sore throat, swelling, difficulty swallowing , pain with swallowing, change in voice. NECK: Denies acute: neck pain, neck swelling, stiff neck. HEART: Denies acute : palpitations, LUNGS: Denies acute: SOB, wheezing, cough, hemoptysis ABDOMEN: Denies acute: abdominal pain, Nausea, Vomiting, diarrhea, melena , hematemesis, hematochezia SKIN: Denies acute: rash, redness, lesions, itchiness. EXTREMITIES: Denies acute: calf pain, numbness, tingling, weakness, denies pain in extremity. Denies acute: Low back pain. Neuro: Denies acute: focal neurological deficit, motor or sensory focal neurological deficit, tremors, seizure like activity, confusion, dizziness, change in mental status, loss of bowel or bladder function, cauda equina like symptoms. : Denies acute: dysuria, hematuria, flank pain, increase in urinary frequency. PSYCH: Denies acute: hallucination, suicidal ideation, homicidal ideation. FEMALE: Denies acute: abnormal vaginal bleeding, foul odor, unusual discharge. PHYSICAL EXAM: General: ---no-----acute distress, awake and alert. Head: normocephalic, atraumatic. No raccoon's eyes, no mohr sign. Neck: supple, trachea is midline, no swelling. Throat: Normal phonation. Eyes:, no erythema, no purulent discharge, no proptosis, no icterus. Heart: regular rate, regular rhythm, no significant murmur appreciated. Lungs: no apparent respiratory distress, Able to speak in full sentences. Bilateral wheezing, no rhonchi, no crackles. No stridors Abdomen: non tender to palpation, non distended, soft, no guarding, no rebound, + bowel sounds. obese. Neuro: Awake, Alert, oriented to name, self, situation, follows commands GCS=15. Speech is normal. Skin: no petechia, no purpura, no cyanosis, non-pale, not jaundice. Lower extremities: --no - Pitting edema no deformity, no focal swelling, no calf TTP. Makes eye contact. moves all four extremities. Face: no apparent facial droop. ED COURSE: DISCLAIMER: This medical document was created using an electronic medical record system with voice recognition software and computerized dictation system. Although this document has been carefully reviewed, there might still be some phonetic and typographical errors. Occasional wrong-word or "sound-alike" substitutions may have occurred due to the inherent limitations of voice recognition software. These areas are purely typographical due to imperfections of the software programs and do not reflect any compromise in the patient's medical care. Please read the chart carefully and recognize, using context, where these substitutions have occurred. Chief Complaint: Chest Pain Time Seen by MD: 23:57 Primary Care Provider: ? Reviewed Notes: Allergies Allergies: Coded Allergies: Cephalexin (Verified Allergy, Unknown, 01/25/17) Codeine (Verified Allergy, Unknown, 01/25/17) Hydrocodone (Verified Allergy, Unknown, 02/09/25) Ibuprofen (Verified Allergy, Unknown, 01/25/17) Home Meds Active Scripts Sucralfate (CARAFATE) 1 Gm Tab, 1 GM PO BID for 30 Days, #60 TAB 0 Refills Prov:CORY VANEGAS MD 08/05/25 Pantoprazole Sodium Sesquihydr (Protonix) 40 Mg Tab, 40 MG PO DAILY for 30 Days, #30 TAB 0 Refills Prov:CORY VANEGAS MD 08/05/25 Amoxicillin & Pot Clavulanate (AUGMENTIN TABLET) 875 Mg Tb, 875 MG PO BID for 3 Days, #6 TAB 0 Refills Prov:CORY VANEGAS MD 08/05/25 Ondansetron Odt 4MG Tab (ZOFRAN PO) 4 Mg Tb, 4 MG PO Q8HP PRN for 10 Days, #30 TAB ODT TAB-DISSOLVE IN MOUTH, THEN SWALLOW Prov:ROMI AUSTIN DO 01/07/24 Albuterol Sulfate (VENTOLIN MDI) 90 Mcg Ih, 90 MCG IN PRN, #1 INH 0 Refills 2 inhalations every 4 to 6 hours as needed Prov:BRAD BALDERAS MD 01/04/24 Reported Medications Ticagrelor Base (Brilinta) 60 Mg Tab, 1 TAB PO BID 01/05/24 Ranolazine (Ranolazine ER) 500 Mg Tab, 1 TAB PO BID 01/05/24 Ezetimibe (Ezetimibe) 10 Mg Tab, 1 TAB PO DAILY 01/05/24 Carvedilol (Carvedilol) 3.125 Mg Tab, 1 TAB PO BID 01/31/22 Aspirin (Aspirin Low Dose) 81 Mg Tab, 1 TAB PO DAILYPRN 01/31/22 Atorvastatin Calcium (ATORVASTATIN CALCIUM) 80 Mg Tab, 1 TAB PO DAILYPRN 01/31/22 Information Source: Patient, Emergency Med Personnel Mode of Arrival: Ambulatory Past Medical History PAST MEDICAL HISTORY: CAD, CKF, High Lipids, HTN, DE, TIA, UTI'S Surgical History: Cholecystectomy, , Hysterectomy, [employer] History: Endometriosis Family History Family History: Reviewed,noncontributory to illness Social History Smoker: Less Than 1 Pack/Day Alcohol: Denies ETOH Use Drugs: Denies Drug Use Lives In: Home X-Ray, Labs, Meds, VS Vital Signs Date Time Temp Pulse Resp B/P (MAP) Pulse Ox O2 Delivery O2 Flow Rate FiO2 09/27/25 23:58 97.9 76 20 101/83 95 97.9 09/27/25 23:54 73 Lab Test 09/27/25 23:56 Range/Units White Blood Count 5.1 4.4-10.8 10^3/uL Red Blood Count 4.70 4.0-5.20 10^6/uL Hemoglobin 13.7 12.2-16.2 g/dL Hematocrit 40.6 36.0-46.0 % Mean Corpuscular Volume 86.3 80.0-100.0 fL Mean Corpuscular Hemoglobin 29.1 28.0-32.0 pg Mean Corpuscular Hemoglobin Concent 33.7 32.0-36.0 g/dL Red Cell Distribution Width 15.6 H 11.8-14.3 % Platelet Count 207 140-450 10^3/uL Mean Platelet Volume 8.2 6.9-10.8 fL Neutrophils (%) (Auto) 54.4 37.0-80.0 % Lymphocytes (%) (Auto) 33.8 10.0-50.0 % Monocytes (%) (Auto) 8.2 0.0-12.0 % Eosinophils (%) (Auto) 2.4 0.0-7.0 % Basophils (%) (Auto) 1.2 0.0-2.0 % Neutrophils # (Auto) 2.8 1.6-8.6 10 ^3/uL Lymphocytes # (Auto) 1.7 0.4-5.4 10 ^3/uL Monocytes # (Auto) 0.4 0-1.3 10 ^3/uL Eosinophils # (Auto) 0.1 0-0.8 10 ^3/uL Basophils # (Auto) 0.1 0-0.2 10 ^3/uL Nucleated Red Blood Cells 0.1 % Sodium Level Pending Potassium Level Pending Chloride Level Pending Carbon Dioxide Level Pending Anion Gap Pending Blood Urea Nitrogen Pending Creatinine Pending Glomerular Filtration Rate Calc Pending BUN/Creatinine Ratio Pending Serum Glucose Pending Calcium Level Pending Troponin I High Sensitivity Pending B-Type Natriuretic Peptide Pending Departure 1 Departure Time of Disposition: 00:16 Impression: Primary Impression: Chest pain Disposition: 09 ADMITTED INPATIENT Admit to: Tele Condition: Guarded Discharged With: Self Heart Score Heart Score: Heart Score Response (Comments) Value History Moderate Suspicious 1 EKG Normal 0 Age >65 2 Risk Factors >3 or Hx ASHD 2 Total 5 JADON KELLY DO Sep 28, 2025 00:16
[2025-09-28 00:19] LABS: Hematocrit 40.6 % (36.0-46.0); Hemoglobin 13.7 g/dL (12.2-16.2); Mean Corpuscular Hemoglobin 29.1 pg (28.0-32.0); Mean Corpuscular Volume 86.3 fL (80.0-100.0); Nucleated Red Blood Cells % 0.1 %
[2025-09-28 00:24] LABS: Potassium 4.1 mmol/L (3.5-5.1); Sodium 142 mmol/L (136-145)
[2025-09-28 00:25] LABS: Anion Gap 8 (5-15); Calcium 9.1 mg/dL (8.7-10.4); Carbon Dioxide 24 mmol/L (20-31)
[2025-09-28 00:30] LABS: BUN/Creatinine Ratio 10.7 (10.0-20.0); Blood Urea Nitrogen 12 mg/dL (9-23); Glucose 102 mg/dL (74-106)
[2025-09-28 00:38] LABS: Chloride 110 mmol/L (98-107)
--- NOTE | 2025-09-28 01:00 | DVH ---
CHEST RADIOGRAPH INDICATION: CP TECHNIQUE: Single frontal view of the chest was obtained COMPARISON: XY CHEST TWO VIEWS ROUTINE on DOS: 08/03/25, XY CHEST PORTABLE on DOS: 04/06/25, XY CHEST XRAY 1 VIEW on DOS: 02/09/25, XY CHEST PORTABLE on DOS: 07/01/24, XY CHEST TWO VIEWS ROUTINE on DOS: 01/04/24 FINDINGS: Lungs and pleural spaces are clear. Cardiac silhouette and papito are within normal limits. Bones and soft tissues demonstrate no significant abnormality. IMPRESSION: No acute disease.
--- NOTE | 2025-09-28 03:02 | ECG ---
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
--- NOTE | 2025-09-28 03:10 | ECG ---
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
[2025-09-28] MEDS ORDERED: ALBUTEROL SULF 2.5 MG/0.5ML(0.5%) NEB SOLN NEB PRN (05:00)
[2025-09-28] MEDS ORDERED: IPRATROPIUM BROM 0.5 MG/2.5ML INH SOL NEB PRN (05:00)
[2025-09-28] MEDS ORDERED: NITROGLYCERIN 0.4 MG SL TAB SL PRN (05:00)
[2025-09-28] MEDS ORDERED: MORPHINE SULFATE INJ 2 MG/ml SYRG IV PRN (05:00)
--- NOTE | 2025-09-28 08:38 | DVHHPRES ---
History of Present Illness Resident Creating Document: JHTEMITASH RESIDENT History of Present Illness Patient is a 75-year-old female came to the hospital with a chief complaint of chest pain since yesterday. Patient reported substernal chest pain pressure- like which came on at rest. Patient has significant medical history of coronary artery disease status post 3 [place] in 2020. Patient reports noncompliance and does not take aspirin at home and reports her daughter gives with the medications. Patient did report of associated shortness of breath but denied any palpitations, nausea, vomiting, abdominal pain. Reported relief of pain with nitroglycerin and aspirin. Patient has had similar symptoms of chest pain in the past with multiple admissions to the hospital. On arrival 12 lead EKG showed sinus rhythm without any acute ST or T-wave changes. Troponin within normal limits Past medical history: As per HPI Past surgical history: PCI with 3 [place] Social history: Patient is an active smoker with 1 pack per day, long history of smoking, denies alcohol or any other drug use Home medications: Aspirin, ranolazine, Protonix, Carafate, atorvastatin, carvedilol, ezetimibe Review of Systems Review of Systems Patient seen resting comfortably Denies any chest pain or shortness of breath or palpitations at present Allergies: Coded Allergies: Cephalexin (Verified Allergy, Unknown, 01/25/17) Codeine (Verified Allergy, Unknown, 01/25/17) Hydrocodone (Verified Allergy, Unknown, 02/09/25) Ibuprofen (Verified Allergy, Unknown, 01/25/17) Medications Current Medications Medications Dose Ordered Sig/Natacha Route Start Time Stop Time Status Last Admin Dose Admin Nitroglycerin 0.4 mg Q5MINP PRN SL 09/28/25 05:00 Morphine Sulfate 2 mg Q30M PRN IV 09/28/25 05:00 Aspirin 81 mg DAILY PO 09/28/25 10:00 Carvedilol 3.125 mg Q12HR PO 09/28/25 10:00 Atorvastatin Calcium 80 mg HS PO 09/28/25 22:00 Ranolazine 500 mg BID PO 09/28/25 10:00 Ipratropium [place] 0.5 mg Q8HPRN PRN NEB 09/28/25 05:00 Cancel Albuterol 2.5 mg Q8HPRN PRN NEB 09/28/25 05:00 Cancel Losartan Potassium 25 mg DAILY PO 09/28/25 10:00 Exam Vital Signs Vital Signs Date Time Temp Pulse Resp B/P (MAP) Pulse Ox O2 Delivery O2 Flow Rate FiO2 09/28/25 06:57 66 18 98 Room Air* 0 21 09/28/25 05:17 98.1 131/80 (97) 98.1 Exam Skin - Patients skin is warm and dry. HEENT - normocephalic, atraumatic, moist mucous membranes, no scleral icterus, no conjunctival pallor. Neck - full ROM, no LAD, no JVD Pulmonary - B/L clear breath sounds without any wheezing or rales cardiovascular - regular S1,S2 heard, no added sounds, no murmurs heard. peripheral pulses normal radial 2+, pedal 2+. No lower extremity edema GI - soft, nontender abdomen. no hepatospleenomegaly. Bowel sounds normoactive Neurological - Patient is A/O X 4 . Bilateral upper extremity strength 5/5, bilateral lower extremity strength 5/5, no facial droop, normal speech, no tremor, no sensory deficiets. Labs/Xrays Labs Test 09/28/25 02:29 09/27/25 23:56 Range/Units Troponin I High Sensitivity < 3 L </=34 ng/L White Blood Count 5.1 4.4-10.8 10^3/uL Red Blood Count 4.70 4.0-5.20 10^6/uL Hemoglobin 13.7 12.2-16.2 g/dL Hematocrit 40.6 36.0-46.0 % Mean Corpuscular Volume 86.3 80.0-100.0 fL Mean Corpuscular Hemoglobin 29.1 28.0-32.0 pg Mean Corpuscular Hemoglobin Concent 33.7 32.0-36.0 g/dL Red Cell Distribution Width 15.6 H 11.8-14.3 % Platelet Count 207 140-450 10^3/uL Mean Platelet Volume 8.2 6.9-10.8 fL Neutrophils (%) (Auto) 54.4 37.0-80.0 % Lymphocytes (%) (Auto) 33.8 10.0-50.0 % Monocytes (%) (Auto) 8.2 0.0-12.0 % Eosinophils (%) (Auto) 2.4 0.0-7.0 % Basophils (%) (Auto) 1.2 0.0-2.0 % Neutrophils # (Auto) 2.8 1.6-8.6 10 ^3/uL Lymphocytes # (Auto) 1.7 0.4-5.4 10 ^3/uL Monocytes # (Auto) 0.4 0-1.3 10 ^3/uL Eosinophils # (Auto) 0.1 0-0.8 10 ^3/uL Basophils # (Auto) 0.1 0-0.2 10 ^3/uL Nucleated Red Blood Cells 0.1 % Sodium Level 142 136-145 mmol/L Potassium Level 4.1 3.5-5.1 mmol/L Chloride Level 110 H 98-107 mmol/L Carbon Dioxide Level 24 20-31 mmol/L Anion Gap 8 5-15 Blood Urea Nitrogen 12 9-23 mg/dL Creatinine 1.12 H 0.550-1.02 mg/dL Glomerular Filtration Rate Calc 52 >90 mL/min BUN/Creatinine Ratio 10.7 10.0-20.0 Serum Glucose 102 74-106 mg/dL Calcium Level 9.1 8.7-10.4 mg/dL B-Type Natriuretic Peptide 19.28 0-100 pg/mL SEPSIS Sepsis Screen Date sepsis recognized/suspect: Sep 28, 2025 Time Sepsis recognized/suspect: 327 Recent Procedure: No On Antibiotic Therapy: No Respiratory Rate >20: No Heart Rate >90: No Temp<36 C (96.8 F) or >38.3 C: No SBP <90 or MAP <65 mmHG: No New Acute Mental Status Change: No Is the patient on CPAP, BIPAP,: No Physician Orders Admit (09/28/25 05:00) Nitroglycerin Sublingual (Ntrostat Subli (09/28/25 05:00) Morphine Sulfate Injection (09/28/25 05:00) Oxygen By Nasal Cannula (09/28/25 05:00) Stat Ekg For Chest Pain (09/28/25 05:00) Notify Of Changes From Base (09/28/25 05:00) Construction Services Technician For 24 Hours (09/28/25 05:00) Emergency Dysrhythmia Protocol (09/28/25 05:00) Aspirin Enteric Coated Tablet (Ecotrin E (09/28/25 10:00) Carvedilol Tablet (Coreg Tablet) (09/28/25 10:00) Atorvastatin (Lipitor) (09/28/25 22:00) Ranolazine (Ranexa Er) (09/28/25 10:00) Losartan Tablet (Cozaar Tablet) (09/28/25 10:00) Cardiac Diet-2gna,Lofat,Lochol (09/28/25 Breakfast) Vital Signs Date Time Temp Pulse Resp B/P (MAP) Pulse Ox O2 Delivery O2 Flow Rate FiO2 09/28/25 06:57 66 18 98 Room Air* 0 21 09/28/25 05:17 98.1 87 20 131/80 (97) 97 98.1 09/28/25 04:00 67 09/28/25 03:26 98.1 65 18 143/72 (95) 97 98.1 09/28/25 03:26 76 18 97 Room Air* 0 09/28/25 03:01 69 09/28/25 02:45 73 18 147/66 (93) 98 09/28/25 01:04 66 Laboratory Tests Test 09/27/25 23:56 White Blood Count 5.1 10^3/uL (4.4-10.8) Assessment/Plan Assessment/Plan Acute coronary syndrome likely unstable angina History of coronary artery disease s/p 3 [place]GH[place] Hypertensive heart disease with diastolic dysfunction Medication noncompliance Tobacco use Plan - single antiplatelet therapy with aspirin, atorvastatin - ranolazine 500 b.i.d. - continued carvedilol 3.125 b.i.d. - cardiology consult Goals of care discussed with the patient for over 15 minutes. Full code Time spent: 32 minutes Plan discussed with Dr. Hercules Plan discussed with: Patient, Other (RN) My Orders Orders - TASH VANG RESIDENT Procedure Category Date Status Time Admit ADMIT 09/28/25 Transmitted 05:00 Nitroglycerin PHA 09/28/25 In Process Sublingual (Ntrostat 05:00 Morphine Sulfate PHA 09/28/25 In Process Injection 05:00 Oxygen By Nasal RT 09/28/25 Transmitted Cannula 05:00 Stat Ekg For Chest SAIGE 09/28/25 In Process Pain 05:00 Notify Of Changes SAIGE 09/28/25 In Process From Base 05:00 Construction Services Technician For SAIGE 12/21/25 In Process 24 Hours 05:00 Emergency Dysrhythmia SAIGE 09/28/25 In Process Protocol 05:00 Aspirin Enteric PHA 09/28/25 In Process Coated Tablet 10:00 Carvedilol Tablet PHA 09/28/25 In Process (Coreg Tablet) 10:00 Atorvastatin (Lipitor) PHA 09/28/25 In Process 22:00 Ranolazine (Ranexa Er) PHA 09/28/25 In Process 10:00 Losartan Tablet PHA 09/28/25 In Process (Cozaar Tablet) 10:00 Visit Coding STANDARD RES Billing Provider: JEAN PAUL HERCULES MD Date of Service if different f: Sep 28, 2025 Common Visit Codes: 30774-[id number] INP/OBS CARE (HIGH) Secondary Visit Codes: [id number] CARE PLAN 30 MINUTES TASH VANG RESIDENT Sep 28, 2025 08:38
[2025-09-28 08:50] LABS: Alanine Aminotransferase 12 U/L (7-40); Alkaline Phosphatase 89 U/L (46-116); Anion Gap 16 (5-15); BUN/Creatinine Ratio 10.0 (10.0-20.0); Blood Urea Nitrogen 13 mg/dL (9-23); Calcium 9.9 mg/dL (8.7-10.4); Glucose 97 mg/dL (74-106); Potassium 4.2 mmol/L (3.5-5.1); Sodium 145 mmol/L (136-145); Total Protein 7.4 g/dL (5.7-8.2)
[2025-09-28 08:51] LABS: Albumin 4.5 g/dL (3.2-4.8); Bilirubin, Total 0.6 mg/dL (0.2-1.0)
[2025-09-28 08:58] LABS: Carbon Dioxide 20 mmol/L (20-31); Chloride 109 mmol/L (98-107)
[2025-09-28] MEDS: RANOLAZINE ER 500 MG TAB PO SCH (09:21)
[2025-09-28] MEDS: LOSARTAN POTASSIUM 25 MG TAB PO SCH (09:22)
[2025-09-28] MEDS: ASPirin-EC 81 mg tab PO SCH (09:22)
[2025-09-28] MEDS: CARVEDILOL 3.125 MG TAB PO SCH (09:24)
[2025-09-28] MEDS: PANTOPRAZOLE 40 MG TAB PO ONE (09:27)
--- NOTE | 2025-09-28 16:10 | DVHPN2 ---
Reviewed: H&P Changes from previous H/P or p: No Changes General: Per HPI Objective Vitals Vital Signs Date Time Temp Pulse Resp B/P (MAP) Pulse Ox O2 Delivery O2 Flow Rate FiO2 09/28/25 13:00 97.9 67 17 136/66 (89) 98 97.9 09/28/25 08:00 Room Air* 0 21 Exam Skin - Patients skin is warm and dry. HEENT - normocephalic, atraumatic, moist mucous membranes, no scleral icterus, no conjunctival pallor. Neck - full ROM, no LAD, no JVD Pulmonary - B/L clear breath sounds without any wheezing or rales cardiovascular - regular S1,S2 heard, no added sounds, no murmurs heard. peripheral pulses normal radial 2+, pedal 2+. No lower extremity edema GI - soft, nontender abdomen. no hepatospleenomegaly. Bowel sounds normoactive Neurological - Patient is A/O X 4 . Bilateral upper extremity strength 5/5, bilateral lower extremity strength 5/5, no facial droop, normal speech, no tremor, no sensory deficiets. Medications Current Medications Medications Dose Ordered Sig/Natacha Route Start Time Stop Time Status Last Admin Dose Admin Nitroglycerin 0.4 mg Q5MINP PRN SL 09/28/25 05:00 Morphine Sulfate 2 mg Q30M PRN IV 09/28/25 05:00 Aspirin 81 mg DAILY PO 09/28/25 10:00 09/28/25 09:22 81 MG Carvedilol 3.125 mg Q12HR PO 09/28/25 10:00 09/28/25 09:24 3.125 MG Atorvastatin Calcium 80 mg HS PO 09/28/25 22:00 Ranolazine 500 mg BID PO 09/28/25 10:00 09/28/25 09:21 500 MG Ipratropium [place] 0.5 mg Q8HPRN PRN NEB 09/28/25 05:00 Cancel Albuterol 2.5 mg Q8HPRN PRN NEB 09/28/25 05:00 Cancel Losartan Potassium 25 mg DAILY PO 09/28/25 10:00 09/28/25 09:22 25 MG Pantoprazole Sodium 40 mg DAILY@0600 PO 09/29/25 06:00 Laboratory Results Laboratory Tests 09/27/25 23:56 09/28/25 02:29 Chemistry Test 09/27/25 23:56 09/28/25 02:29 Calcium Level 9.1 mg/dL (8.7-10.4) 9.9 mg/dL (8.7-10.4) Albumin 4.5 g/dL (3.2-4.8) Total Protein 7.4 g/dL (5.7-8.2) Cardiac Markers Test 09/27/25 23:56 B-Type Natriuretic Peptide 19.28 pg/mL (0-100) LFT Test 09/28/25 02:29 Alanine Aminotransferase (ALT) 12 U/L (7-40) Alkaline Phosphatase 89 U/L (46-116) Aspartate Amino Transferase (AST) 12 U/L (13-40) L Total Bilirubin 0.6 mg/dL (0.2-1.0) Labs and/or images reviewed: Labs reviewed by me, Image(s) reviewed by me Assessment/Plan Assessment/Plan 75-year-old female came to the hospital with a chief complaint of chest pain since yesterday. Patient reported substernal chest pain pressure-like which came on at rest. Patient has significant medical history of coronary artery disease status post 3 [place] in 2020. Patient reports noncompliance and does not take aspirin at home and reports her daughter gives with the medications. Patient did report of associated shortness of breath but denied any palpitations, nausea, vomiting, abdominal pain. Reported relief of pain with nitroglycerin and aspirin. Patient has had similar symptoms of chest pain in the past with multiple admissions to the hospital. On arrival 12 lead EKG showed sinus rhythm without any acute ST or T-wave changes. Troponin within normal limits. 09/28: 75 female. Here for chest pain. trop neg x3. ckd. here for ACS. will keep on tele. high risk with hx CAD 3 [place]. cardiology consulted. diagnosis: Acute coronary syndrome likely unstable angina History of coronary artery disease s/p 3 [place] Hypertensive heart disease with diastolic dysfunction Medication noncompliance Tobacco use plan: Aspirin 81 Lipitor 80 Coreg 3 b.i.d. Losartan 25 daily Chest pain protocol Pain mild Tylenol, moderate [place], severe morphine IV Protonix tablet 40 daily Ranolazine Ranexa ER 500 mg p.o. b.i.d. Telemetry Full code Plan discussed with: Patient Date of Service: Sep 28, 2025 Billing Provider: CORY VANEGAS MD Common Visit Codes: [id number] INP/OBS CARE(HIGH) CORY VANEGAS MD Sep 28, 2025 16:10
[2025-09-28] MEDS: ATORVASTATIN 20 MG TAB PO SCH (21:17)
[2025-09-29] VITALS (7 sets, daily range): BP systolic 104–141; BP diastolic 43–89; PULSE 47–69; RESP 14–18; TEMP 36.5; O2SAT 96–98
[2025-09-29] MEDS: PANTOPRAZOLE 40 MG TAB PO SCH (05:36)
[2025-09-29 06:46] LABS: Hematocrit 40.1 % (36.0-46.0); Hemoglobin 13.7 g/dL (12.2-16.2); Mean Corpuscular Hemoglobin 29.6 pg (28.0-32.0); Mean Corpuscular Volume 86.7 fL (80.0-100.0); Nucleated Red Blood Cells % 0.1 %
[2025-09-29 07:02] LABS: Alanine Aminotransferase < 9 U/L (7-40); Albumin 3.9 g/dL (3.2-4.8); Alkaline Phosphatase 75 U/L (46-116); Anion Gap 10 (5-15); BUN/Creatinine Ratio 12.2 (10.0-20.0); Bilirubin, Total 0.8 mg/dL (0.2-1.0); Blood Urea Nitrogen 15 mg/dL (9-23); Calcium 9.2 mg/dL (8.7-10.4); Carbon Dioxide 22 mmol/L (20-31); Chloride 109 mmol/L (98-107); Glucose 95 mg/dL (74-106); Potassium 4.3 mmol/L (3.5-5.1); Sodium 141 mmol/L (136-145); Total Protein 6.5 g/dL (5.7-8.2)
--- NOTE | 2025-09-29 10:14 | ECG ---
[facility] Test Date: 2025-09-27 Test Time: 23:54:45 Pat Name: ZEKE INFANTE Department: [facility] ED Patient ID: [id number] Room: [facility]0T A Gender: F Vp Lab: ROBER : 1950 Requested By: JADON KELLY Order Number: [id number] Reading MD: Valerio Naidu Measurements Intervals [place] Rate: 73 P: 83 [place]: 131 QRS: 67 QRSD: 105 T: 48 QT: 423 QTc: 467 Interpretive Statements Sinus rhythm Electronically Signed On 09-29-2025 15:27:32 PST by Valerio Naidu Please click the below link to view image of tracing.
--- NOTE | 2025-09-29 14:29 | DVHPN2 ---
Reviewed: H&P Changes from previous H/P or p: No Changes General: Per HPI Objective Vitals Vital Signs Date Time Temp Pulse Resp B/P (MAP) Pulse Ox O2 Delivery O2 Flow Rate FiO2 09/29/25 13:00 98.3 67 18 104/43 (63) 98 98.3 09/29/25 08:00 Room Air* 0 21 Intake/Output Intake and Output 09/29/25 07:00 Intake Total 600 ml Balance 600 ml Intake Oral 600 ml # Voids 1 Exam Skin - Patients skin is warm and dry. HEENT - normocephalic, atraumatic, moist mucous membranes, no scleral icterus, no conjunctival pallor. Neck - full ROM, no LAD, no JVD Pulmonary - B/L clear breath sounds without any wheezing or rales cardiovascular - regular S1,S2 heard, no added sounds, no murmurs heard. peripheral pulses normal radial 2+, pedal 2+. No lower extremity edema GI - soft, nontender abdomen. no hepatospleenomegaly. Bowel sounds normoactive Neurological - Patient is A/O X 4 . Bilateral upper extremity strength 5/5, bilateral lower extremity strength 5/5, no facial droop, normal speech, no tremor, no sensory deficiets. Medications Current Medications Medications Dose Ordered Sig/Natacha Route Start Time Stop Time Status Last Admin Dose Admin Nitroglycerin 0.4 mg Q5MINP PRN SL 09/28/25 05:00 Morphine Sulfate 2 mg Q30M PRN IV 09/28/25 05:00 Aspirin 81 mg DAILY PO 09/28/25 10:00 09/29/25 09:25 81 MG Carvedilol 3.125 mg Q12HR PO 09/28/25 10:00 09/29/25 09:25 3.125 MG Atorvastatin Calcium 80 mg HS PO 09/28/25 22:00 09/28/25 21:17 80 MG Ranolazine 500 mg BID PO 09/28/25 10:00 09/29/25 09:25 500 MG Ipratropium [place] 0.5 mg Q8HPRN PRN NEB 09/28/25 05:00 Cancel Albuterol 2.5 mg Q8HPRN PRN NEB 09/28/25 05:00 Cancel Losartan Potassium 25 mg DAILY PO 09/28/25 10:00 09/29/25 09:26 25 MG Pantoprazole Sodium 40 mg DAILY@0600 PO 09/29/25 06:00 09/29/25 05:36 40 MG Laboratory Results Laboratory Tests 09/29/25 06:19 Chemistry Test 09/29/25 06:19 Albumin 3.9 g/dL (3.2-4.8) Calcium Level 9.2 mg/dL (8.7-10.4) Total Protein 6.5 g/dL (5.7-8.2) LFT Test 09/29/25 06:19 Alanine Aminotransferase (ALT) < 9 U/L (7-40) Alkaline Phosphatase 75 U/L (46-116) Aspartate Amino Transferase (AST) 10 U/L (13-40) L Total Bilirubin 0.8 mg/dL (0.2-1.0) Labs and/or images reviewed: Labs reviewed by me, Image(s) reviewed by me Assessment/Plan Assessment/Plan 75-year-old female came to the hospital with a chief complaint of chest pain since yesterday. Patient reported substernal chest pain pressure-like which came on at rest. Patient has significant medical history of coronary artery disease status post 3 [place] in 2020. Patient reports noncompliance and does not take aspirin at home and reports her daughter gives with the medications. Patient did report of associated shortness of breath but denied any palpitations, nausea, vomiting, abdominal pain. Reported relief of pain with nitroglycerin and aspirin. Patient has had similar symptoms of chest pain in the past with multiple admissions to the hospital. On arrival 12 lead EKG showed sinus rhythm without any acute ST or T-wave changes. Troponin within normal limits. 09/28: 75 female. Here for chest pain. trop neg x3. ckd. here for ACS. will keep on tele. high risk with hx CAD 3 [place]. cardiology consulted. 09/29: Patient chest pain-free for approximately 48 hours since admit. Likely pain is from GERD, we will need Pepcid 20 b.i.d. proximally 1 month. 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 I will contact the group. On tele patient is sinus Alan, no concerns. On EKG patient had [address] depressions in inferior leads. Patient is high-risk given has multiple stents in the past for CAD. Troponins negative x3. Patient wants to leave today. diagnosis: Acute coronary syndrome likely unstable angina History of coronary artery disease s/p 3 [place] Hypertensive heart disease with diastolic dysfunction Medication noncompliance Tobacco use plan: Aspirin 81 Lipitor 80 Coreg 3 b.i.d. Losartan 25 daily Chest pain protocol Pain mild Tylenol, moderate [place], severe morphine IV Protonix tablet 40 daily Ranolazine Ranexa ER 500 mg p.o. b.i.d. Telemetry Full code Plan discussed with: Patient Date of Service: Sep 29, 2025 Billing Provider: CORY VANEGAS MD Common Visit Codes: [id number] INP/OBS CARE(HIGH) CORY VANEGAS MD Sep 29, 2025 14:29
[2025-09-29] MEDS ORDERED: PANT40TA2 PO (17:33)
--- NOTE | 2025-09-29 17:34 | DVHDS2 ---
Discharge Summary Date of Admission Sep 28, 2025 at 05:00 Date of Discharge: Sep 29, 2025 Labs/Diagnostic Data: Laboratory Results Test 09/29/25 06:19 09/28/25 02:29 09/27/25 23:56 White Blood Count 3.8 10^3/uL (4.4-10.8) Red Blood Count 4.63 10^6/uL (4.0-5.20) Hemoglobin 13.7 g/dL (12.2-16.2) Hematocrit 40.1 % (36.0-46.0) Mean Corpuscular Volume 86.7 fL (80.0-100.0) Mean Corpuscular Hemoglobin 29.6 pg (28.0-32.0) Mean Corpuscular Hemoglobin Concent 34.1 g/dL (32.0-36.0) Red Cell Distribution Width 15.4 % (11.8-14.3) Platelet Count 180 10^3/uL (140-450) Mean Platelet Volume 8.3 fL (6.9-10.8) Neutrophils (%) (Auto) 51.3 % (37.0-80.0) Lymphocytes (%) (Auto) 33.7 % (10.0-50.0) Monocytes (%) (Auto) 11.6 % (0.0-12.0) Eosinophils (%) (Auto) 2.2 % (0.0-7.0) Basophils (%) (Auto) 1.2 % (0.0-2.0) Neutrophils # (Auto) 2.0 10 ^3/uL (1.6-8.6) Lymphocytes # (Auto) 1.3 10 ^3/uL (0.4-5.4) Monocytes # (Auto) 0.4 10 ^3/uL (0-1.3) Eosinophils # (Auto) 0.1 10 ^3/uL (0-0.8) Basophils # (Auto) 0 10 ^3/uL (0-0.2) Nucleated Red Blood Cells 0.1 % Sodium Level 141 mmol/L (136-145) Potassium Level 4.3 mmol/L (3.5-5.1) Chloride Level 109 mmol/L (98-107) Carbon Dioxide Level 22 mmol/L (20-31) Anion Gap 10 (5-15) Blood Urea Nitrogen 15 mg/dL (9-23) Creatinine 1.23 mg/dL (0.550-1.02) Glomerular Filtration Rate Calc 46 mL/min (>90) BUN/Creatinine Ratio 12.2 (10.0-20.0) Serum Glucose 95 mg/dL (74-106) Calcium Level 9.2 mg/dL (8.7-10.4) Total Bilirubin 0.8 mg/dL (0.2-1.0) Aspartate Amino Transferase (AST) 10 U/L (13-40) Alanine Aminotransferase (ALT) < 9 U/L (7-40) Alkaline Phosphatase 75 U/L (46-116) Total Protein 6.5 g/dL (5.7-8.2) Albumin 3.9 g/dL (3.2-4.8) Troponin I High Sensitivity < 3 ng/L (</=34) B-Type Natriuretic Peptide 19.28 pg/mL (0-100) Other Laboratory Tests 09/29/25 06:19 Brief Hx & Hospital Course: 75-year-old female came to the hospital with a chief complaint of chest pain since yesterday. Patient reported substernal chest pain pressure-like which came on at rest. Patient has significant medical history of coronary artery disease status post 3 [place] in 2020. Patient reports noncompliance and does not take aspirin at home and reports her daughter gives with the medications. Patient did report of associated shortness of breath but denied any palpitations, nausea, vomiting, abdominal pain. Reported relief of pain with nitroglycerin and aspirin. Patient has had similar symptoms of chest pain in the past with multiple admissions to the hospital. On arrival 12 lead EKG showed sinus rhythm without any acute ST or T-wave changes. Troponin within normal limits. 09/28: 75 female. Here for chest pain. trop neg x3. ckd. here for ACS. will keep on tele. high risk with hx CAD 3 [place]. cardiology consulted. 09/29: Patient chest pain-free for approximately 48 hours since admit. Likely pain is from GERD, we will need Pepcid 20 b.i.d. proximally 1 month. 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 I will contact the group. On tele patient is sinus Alan, no concerns. On EKG patient had [address] depressions in inferior leads. Patient is high-risk given has multiple stents in the past for CAD. Troponins negative x3. Patient wants to leave today. - cleared by cardiology. needs close followup outpatient. diagnosis: chest pain, likely costochondritis GERD, chronic, possible ACS ruled out History of coronary artery disease s/p 3 [place] Hypertensive heart disease with diastolic dysfunction Medication noncompliance Tobacco use plan: - follow up with [facility] 1-2 weeks - continue Protonix 40 mg daily. refilled - continue home medications. Condition at Discharge: Fair Final Diagnosis/Problems List chest pain, likely costochondritis GERD, chronic, possible ACS ruled out History of coronary artery disease s/p 3 [place] Hypertensive heart disease with diastolic dysfunction Medication noncompliance Tobacco use Discharge Disposition: Home Discharge Instruct/Medications Scheduled Albuterol Sulfate (Ventolin Mdi), 90 MCG IN PRN Amoxicillin & Pot Clavulanate (Augmentin Tablet), 875 MG PO BID Aspirin (Aspirin Low Dose), 1 TAB PO DAILYPRN, (Reported) Atorvastatin Calcium (Atorvastatin Calcium), 1 TAB PO DAILYPRN, (Reported) Carvedilol (Carvedilol), 1 TAB PO BID, (Reported) Ezetimibe (Ezetimibe), 1 TAB PO DAILY, (Reported) Pantoprazole Sodium Sesquihydr (Protonix), 40 MG PO DAILY Ranolazine (Ranolazine ER), 1 TAB PO BID, (Reported) Sucralfate (Carafate), 1 GM PO BID Ticagrelor Base (Brilinta), 1 TAB PO BID, (Reported) Scheduled PRN Ondansetron Odt 4MG Tab (Zofran Po), 4 MG PO Q8HP PRN Discharge Statement: "Patient was advised to return to the ER or call 911 if any headaches, dizziness, shortness of breath, chest pain, abdominal pain, bleeding, fevers, or worsening of medical condition. Patient was counseled about treatment plan, medications, possible side effects, patientverbalized understanding. All questions were answered to the best of my ability. This discharge took greater then 30 minutes in planning, reviewing documentation, counseling the patient, and discussing with other team members." ASSESSMENT ASSESSMENT Assessment Date of Service: Sep 29, 2025 Billing Provider: CORY VANEGAS MD Common Visit Codes: 05161-XZX/OBS DISCH DAY >30min CORY VANEGAS MD Sep 29, 2025 17:34
--- NOTE | 2025-09-29 17:45 | DVHINCON2 ---
Date of service: Sep 29, 2025 History of Present Illness HPI Patient is a 75-year-old female presented to the hospital on September 27, 2025 for chest discomfort. On September 29, 2025, I was called for cardiology consultation. Patient's chest pain was atypical and started the day before presentation. Patient had taken aspirin and nitro and felt better before arrival. Patient does have history of coronary artery disease and has had stents before (2020). She has been noncompliant with medication and followups. Last cardiology visit was over a year ago. Has been seen in the hospital for chest discomforts repeatedly. Was actually in hospital for chest discomfort in April and had nuclear stress test which was reported normal (no ischemia). It is of note that the patient is active cigarette smoker (1 pack a day). Since arrival, EKG has been normal. Serial high sensitive troponin has been normal also. Home Meds Active Scripts Pantoprazole Sodium Sesquihydr (Protonix) 40 Mg Tab, 40 MG PO DAILY for 30 Days, #30 TAB 0 Refills Prov:CORY VANEGAS MD 09/29/25 Sucralfate (CARAFATE) 1 Gm Tab, 1 GM PO BID for 30 Days, #60 TAB 0 Refills Prov:CORY VANEGAS MD 08/05/25 Amoxicillin & Pot Clavulanate (AUGMENTIN TABLET) 875 Mg Tb, 875 MG PO BID for 3 Days, #6 TAB 0 Refills Prov:CORY VANEGAS MD 08/05/25 Ondansetron Odt 4MG Tab (ZOFRAN PO) 4 Mg Tb, 4 MG PO Q8HP PRN for 10 Days, #30 TAB ODT TAB-DISSOLVE IN MOUTH, THEN SWALLOW Prov:ROMI AUSTIN DO 01/07/24 Albuterol Sulfate (VENTOLIN MDI) 90 Mcg Ih, 90 MCG IN PRN, #1 INH 0 Refills 2 inhalations every 4 to 6 hours as needed Prov:BRAD BALDERAS MD 01/04/24 Reported Medications Ticagrelor Base (Brilinta) 60 Mg Tab, 1 TAB PO BID 01/05/24 Ranolazine (Ranolazine ER) 500 Mg Tab, 1 TAB PO BID 01/05/24 Ezetimibe (Ezetimibe) 10 Mg Tab, 1 TAB PO DAILY 01/05/24 Carvedilol (Carvedilol) 3.125 Mg Tab, 1 TAB PO BID 01/31/22 Aspirin (Aspirin Low Dose) 81 Mg Tab, 1 TAB PO DAILYPRN 01/31/22 Atorvastatin Calcium (ATORVASTATIN CALCIUM) 80 Mg Tab, 1 TAB PO DAILYPRN 01/31/22 Past Medical History Others Past medical history includes coronary artery disease (status post PCI/stent in 2020: 3 stents in LAD in 1 setting), hyperlipidemia, hypertension, obesity, en dometriosis, CKD, old history of TIA and status post C- section/cholecystectomy/hysterectomy. She has had repeated UTIs. Is active cigarette smoker. Father had CVA and AL. Mother had pacemaker and breast cancer. She is allergic to codeine and ibuprofen. Patient Family History: Cerebrovascular accident (CVA) G8 FATHER (DEMENTIA), FH: breast cancer G8 MOTHER (DEMENTIA), G8 SISTER FH: heart attack G8 MOTHER (DEMENTIA), G8 FATHER (DEMENTIA), FH: ovarian cancer G8 MOTHER (DEMENTIA), G8 SISTER Smoker: Positive Alocohol: None Drugs: None Lives with: With family Review of Systems Constitutional: No symptom reported Ears, Nose, & Throat: No symptom reported Pulmonary/Respiratory: Cough Cardiovascular: Chest Pain All Other Systems 14 point review of system was performed. Relevant findings as per above and as per HPI. Otherwise negative. H&P Exam Vital Signs Vital Signs Date Time Temp Pulse Resp B/P (MAP) Pulse Ox O2 Delivery O2 Flow Rate FiO2 09/29/25 17:00 97.7 61 14 141/74 (96) 98 97.7 09/29/25 08:00 Room Air* 0 21 General Appeara: Well developed Head Exam: Normal inspection Eye Exam: bilateral eye PERRL Nasal Exam: Normal inspection Mouth: Normal Inspection Pulmonary/Respiratory: Normal inspection, Rhonci Cardiovascular/Chest: Regular rate, Systolic murmur Peripheral Pulses: 2+ carotid (R), 2+ carotid (L), 2+ femoral (R), 2+ femoral (L) Abdominal Exam: Normal bowel sounds, Soft Neuro/Mental St: Alert, Oriented Appearance: Appropriate appearance Eye contact/ Speech: Cooperative Labs/Xrays Labs Test 09/29/25 06:19 09/28/25 02:29 12/20/25 23:56 Range/Units White Blood Count 3.8 #L 4.4-10.8 10^3/uL Red Blood Count 4.63 4.0-5.20 10^6/uL Hemoglobin 13.7 12.2-16.2 g/dL Hematocrit 40.1 36.0-46.0 % Mean Corpuscular Volume 86.7 80.0-100.0 fL Mean Corpuscular Hemoglobin 29.6 28.0-32.0 pg Mean Corpuscular Hemoglobin Concent 34.1 32.0-36.0 g/dL Red Cell Distribution Width 15.4 H 11.8-14.3 % Platelet Count 180 140-450 10^3/uL Mean Platelet Volume 8.3 6.9-10.8 fL Neutrophils (%) (Auto) 51.3 37.0-80.0 % Lymphocytes (%) (Auto) 33.7 10.0-50.0 % Monocytes (%) (Auto) 11.6 0.0-12.0 % Eosinophils (%) (Auto) 2.2 0.0-7.0 % Basophils (%) (Auto) 1.2 0.0-2.0 % Neutrophils # (Auto) 2.0 1.6-8.6 10 ^3/uL Lymphocytes # (Auto) 1.3 0.4-5.4 10 ^3/uL Monocytes # (Auto) 0.4 0-1.3 10 ^3/uL Eosinophils # (Auto) 0.1 0-0.8 10 ^3/uL Basophils # (Auto) 0 0-0.2 10 ^3/uL Nucleated Red Blood Cells 0.1 % Sodium Level 141 136-145 mmol/L Potassium Level 4.3 3.5-5.1 mmol/L Chloride Level 109 H 98-107 mmol/L Carbon Dioxide Level 22 20-31 mmol/L Anion Gap 10 5-15 Blood Urea Nitrogen 15 9-23 mg/dL Creatinine 1.23 H 0.550-1.02 mg/dL Glomerular Filtration Rate Calc 46 >90 mL/min BUN/Creatinine Ratio 12.2 10.0-20.0 Serum Glucose 95 74-106 mg/dL Calcium Level 9.2 8.7-10.4 mg/dL Total Bilirubin 0.8 0.2-1.0 mg/dL Aspartate Amino Transferase (AST) 10 L 13-40 U/L Alanine Aminotransferase (ALT) < 9 7-40 U/L Alkaline Phosphatase 75 46-116 U/L Total Protein 6.5 5.7-8.2 g/dL Albumin 3.9 3.2-4.8 g/dL Troponin I High Sensitivity < 3 L </=34 ng/L B-Type Natriuretic Peptide 19.28 0-100 pg/mL Assessment/Plan Plan Patient is a 75-year-old female presented to the hospital on September 27, 2025 for chest discomfort. On September 29, 2025, I was called for cardiology consultation. Patient's chest pain was atypical and started the day before presentation. Patient had taken aspirin and nitro and felt better before arrival. Patient does have history of coronary artery disease and has had stents before (2020). She has been noncompliant with medication and followups. Last cardiology visit was over a year ago. Has been seen in the hospital for chest discomforts repeatedly. Was actually in hospital for chest discomfort in April and had nuclear stress test which was reported normal (no ischemia). It is of note that the patient is active cigarette smoker (1 pack a day). Since arrival, EKG has been normal. Serial high sensitive troponin has been normal also. Not in acute distress. Obese lady, lying flat in bed. Complaining of occasional abdominal pain. No JVD. Mucosa is pink and wet. No carotid bruit. Not using accessory muscles of breathing. Scattered rhonchi is heard throughout both lungs. Cardiac: Regular, no thrill/gallop. Abdomen: Somehow distended. Bowel sound is positive. Tenderness is elicited in upper abdomen in the right upper quadrant. No rebound tenderness. She did complain of some tenderness in the lower abdomen also. No gross mass. No gross hepatomegaly. Extremities do not reveal edema. Dorsalis pedis is 2+ bilateral Past medical history includes coronary artery disease (status post PCI/stent in 2020: 3 stents in LAD in 1 setting), hyperlipidemia, hypertension, obesity, endometriosis, CKD, old history of TIA and status post C- section/cholecystectomy/hysterectomy. She has had repeated UTIs. Is active cigarette smoker. Father had CVA and AL. Mother had pacemaker and breast cancer. She is allergic to codeine and ibuprofen. Echocardiogram of August 05, 2021 had revealed ejection fraction of 55%, anterior hypokinesis and right ventricular systolic pressure of 36 mm Hg Echocardiogram (outside) of April 2023 had reported preserved LVEF and no significant valvular disease. Echocardiogram of June 2024 had reported ejection fraction of 60-65% Echocardiogram of April 06, 2025 had reported ejection fraction of 65-60%, mild diastolic dysfunction and no valvular disease. Left heart catheterization of August 05, 2021 had revealed 50% mid RCA lesion, lad with 99% mid LAD lesion and status post PCI/drug-eluting stent deployment in LAD (3 stents) Nuclear stress test of May 16, 2023 (performed in the office) revealed normal perfusion and ejection fraction of 72% Nuclear stress test of April 08, 2025 reported ejection fraction of 67%, no ischemia, normal perfusion. Creatinine: 1.12 - 1.30 - 1.23 Potassium: 4.1 - 4.2 - 4.3 BNP: 19.28 Troponin (high sensitive): <3 - <3 - <3 Chest x-ray revealed: EKG revealed sinus rhythm with no ST-T changes Tele reveals sinus rhythm Patient is a 75-year-old female who presented with atypical chest pain. Serial high sensitive troponin has been negative. EKG was nonrevealing. Acute coronary syndrome is not considered. Does have history of coronary artery disease for which has had stents before. Does smoke actively. He is noncompliant with medication followups. Atypical chest discomfort Coronary artery disease, history of Obesity Active cigarette smoker Hyperlipidemia Hypertension Cardiac suggestion for management: Manage on telemetry Follow-up electrolytes and kidney function tests and correct abnormalities Long-term continuation of aspirin 81 mg daily suggested Consider continuation of Brilinta at 60 mg twice daily High potency statin Antianginal therapy can be considered Lifestyle and risk factor modification is advised. Patient was counseled to be compliant with medication and followups Patient was counseled to quit / stop smoking Further evaluation and management depends on the above and clinical course Cardiac-duke is stable Thank you for consultation A total of 75 minutes was spent reviewing the patient record, examining the patient, making a diagnostic and therapeutic plan, discussing this plan with medical personnel, following up on diagnostic studies and following the patient for clinical stability excluding any and all procedures. At least 50% of this time was spent in direct, [id number] contact. Thank you for allowing me to participate in this patient's care. Further recommendations will depend on patient's clinical course. Please do not hesitate to contact me if you have any questions or concerns. This medical document was created using electronic medical record system with [employer] computerized dictation system. Although this document has been carefully reviewed, there may still be some phonetic and typographical errors. These areas are purely typographical due to the imperfection of the software programs, and do not reflect any compromise in the patient's medical care. Plan discussed with: Patient, Other (Nurse) ARVIND MENDOZA MD Sep 29, 2025 17:45
[2025-09-29] MEDS ORDERED: TICAGRELOR 60 MG TAB PO SCH (22:00)
== END 2025-09-29 19:10 | disposition home or self-care (01) | DRG 206 ==
LOC: EDBD 23:49 → ER 23:49 → OVERFLOW 09-28 05:00 → TELE-EAST 09-28 06:57
PROVIDERS: ADMIT Student in an Organized Health Care Education/Training Program; ATTEND Student in an Organized Health Care Education/Training Program
DX: M94.0 Chondrocostal junction syndrome [Tietze] (principal); I50.32 Chronic diastolic (congestive) heart failure; E78.5 Hyperlipidemia, unspecified; Z79.02 Long term (current) use of antithrombotics/antiplatelets; I13.10 Hypertensive heart and chronic kidney disease without heart failure, with stage 1 through stage 4 chronic kidney disease, or unspecified chronic kidney disease; N18.9 Chronic kidney disease, unspecified; K21.9 Gastro-esophageal reflux disease without esophagitis; F17.210 Nicotine dependence, cigarettes, uncomplicated; I25.10 Atherosclerotic heart disease of native coronary artery without angina pectoris; I25.2 Old myocardial infarction; Z90.710 Acquired absence of both cervix and uterus; Z88.2 Allergy status to sulfonamides; Z88.6 Allergy status to analgesic agent; Z88.5 Allergy status to narcotic agent; Z79.899 Other long term (current) drug therapy; Z91.148 Patient's other noncompliance with medication regimen for other reason; Z95.5 Presence of coronary angioplasty implant and graft; Z79.82 Long term (current) use of aspirin; Z82.49 Family history of ischemic heart disease and other diseases of the circulatory system; Z85.43 Personal history of malignant neoplasm of ovary; Z82.3 Family history of stroke; Z80.3 Family history of malignant neoplasm of breast; Z90.49 Acquired absence of other specified parts of digestive tract
CPT/HCPCS: 36415; 71045; 80048; 80053; 83880; 84484; 85025; 93005; G0378

== ENCOUNTER 2025-10-04 18:39 | Emergency (ER) | payer MEDICAID, OTHER ==
[~2025-10-04] VITALS: Ht 170.2 cm; Wt 73.0 kg
[~2025-10-04 18:39] MED LIST changes: -AUG875T PO
[2025-10-04 19:03] LABS: Hematocrit 42.8 % (36.0-46.0); Hemoglobin 14.4 g/dL (12.2-16.2); Mean Corpuscular Hemoglobin 29.1 pg (28.0-32.0); Mean Corpuscular Volume 86.6 fL (80.0-100.0); Nucleated Red Blood Cells % 0.2 %
--- NOTE | 2025-10-04 19:07 | ECG ---
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
[2025-10-04 19:12] LABS: Potassium 4.2 mmol/L (3.5-5.1); Sodium 141 mmol/L (136-145)
[2025-10-04 19:13] LABS: Anion Gap 9 (5-15); Carbon Dioxide 24 mmol/L (20-31)
[2025-10-04 19:14] LABS: Calcium 9.3 mg/dL (8.7-10.4)
[2025-10-04 19:15] LABS: Chloride 108 mmol/L (98-107)
[2025-10-04 19:18] LABS: Glucose 88 mg/dL (74-106)
[2025-10-04 19:19] LABS: BUN/Creatinine Ratio 14.0 (10.0-20.0); Blood Urea Nitrogen 14 mg/dL (9-23)
--- NOTE | 2025-10-04 19:42 | DVH ---
CHEST RADIOGRAPH INDICATION: CP TECHNIQUE: Single frontal view of the chest was obtained COMPARISON: XY CHEST PORTABLE on DOS: 09/28/25, XY CHEST PORTABLE on DOS: 04/06/25, XY CHEST XRAY 1 VIEW on DOS: 02/09/25 FINDINGS: Lines and Tubes: None Lungs: No focal consolidation. Hyperinflation of the lungs. Linear density of the right upper lung zone which may represent atelectasis/scarring. Pleura: No effusion. No pneumothorax. Cardiomediastinal contours: Unremarkable Bones: No acute osseous abnormality. IMPRESSION: No acute cardiopulmonary disease. Hyperinflation of the lungs.
--- NOTE | 2025-10-04 20:16 | ED.PDOC ---
HPI Comments 75-year-old female who came to ER for chest pains. Patient is a chronic smoker, history of hypertension, coronary disease, NM, status post cardiac stents x3. Patient was smoking earlier when she started having midsternal chest pains again and shortness of breath. Patient denies having any chest pains at this time of care. Chief Complaint: Chest Pain Time Seen by MD: 20:16 Primary Care Provider: ? Reviewed Notes: Nurses Notes Allergies: Coded Allergies: Cephalexin (Verified Allergy, Unknown, 01/25/17) Codeine (Verified Allergy, Unknown, 01/25/17) Hydrocodone (Verified Allergy, Unknown, 02/09/25) Ibuprofen (Verified Allergy, Unknown, 01/25/17) Home Meds Active Scripts Pantoprazole Sodium Sesquihydr (Protonix) 40 Mg Tab, 40 MG PO DAILY for 30 Days, #30 TAB 0 Refills Prov:CORY VANEGAS MD 09/29/25 Sucralfate (CARAFATE) 1 Gm Tab, 1 GM PO BID for 30 Days, #60 TAB 0 Refills Prov:CORY VANEGAS MD 08/05/25 Ondansetron Odt 4MG Tab (ZOFRAN PO) 4 Mg Tb, 4 MG PO Q8HP PRN for 10 Days, #30 TAB ODT TAB-DISSOLVE IN MOUTH, THEN SWALLOW Prov:ROMI AUSTIN DO 01/07/24 Albuterol Sulfate (VENTOLIN MDI) 90 Mcg Ih, 90 MCG IN PRN, #1 INH 0 Refills 2 inhalations every 4 to 6 hours as needed Prov:BRAD BALDERAS MD 01/04/24 Reported Medications Ticagrelor Base (Brilinta) 60 Mg Tab, 1 TAB PO BID 01/05/24 Ranolazine (Ranolazine ER) 500 Mg Tab, 1 TAB PO BID 01/05/24 Ezetimibe (Ezetimibe) 10 Mg Tab, 1 TAB PO DAILY 01/05/24 Carvedilol (Carvedilol) 3.125 Mg Tab, 1 TAB PO BID 01/31/22 Aspirin (Aspirin Low Dose) 81 Mg Tab, 1 TAB PO DAILYPRN 01/31/22 Atorvastatin Calcium (ATORVASTATIN CALCIUM) 80 Mg Tab, 1 TAB PO DAILYPRN 01/31/22 Discontinued Scripts Amoxicillin & Pot Clavulanate (AUGMENTIN TABLET) 875 Mg Tb, 875 MG PO BID for 3 Days, #6 TAB 0 Refills Prov:CORY VANEGAS MD 08/05/25 Information Source: Patient Mode of Arrival: EMS Past Medical History PAST MEDICAL HISTORY: CAD, CKF, High Lipids, HTN, NM, TIA, UTI'S Surgical History: Cholecystectomy, , Hysterectomy, 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: Endometriosis Family History Family History: Reviewed,noncontributory to illness Social History Smoker: Cigarettes Alcohol: Denies ETOH Use Drugs: Denies Drug Use Lives In: Home Constitutional: denies: chills, diaphoresis, fatigue, fever, malaise, sweats, weakness, others EENTM: denies: blurred vision, double vision, ear bleeding, ear discharge, ear drainage, ear pain, ear ringing, eye pain, eye redness, hearing loss, mouth pain, mouth swelling, nasal discharge, nose bleeding, nose congestion, nose pain, photophobia, tearing, throat pain, throat swelling, voice changes, others Respiratory: denies: cough, hemoptysis, orthopnea, SOB at rest, shortness of breath, SOB with excertion, stridor, wheezing, others Cardiovascular: reports: chest pain; denies: dizzy spells, diaphoresis, Dyspnea on exertion, edema, irregular heart beat, left arm pain, lightheadedness, palpitations, PND, syncope, others Gastrointestinal: denies: abdomen distended, abdominal pain, blood streaked bowels, constipated, diarrhea, dysphagia, difficulty swallowing, hematemesis, melena, nausea, poor appetite, poor fluid intake, rectal bleeding, rectal pain, vomiting, others Genitourinary: denies: abnormal vagina bleeding, burning, dyspareunia, dysuria, flank pain, frequency, hematuria, incontinence, pain, , vagina discharge, urgency, others Neurological: denies: dizziness, fainting, headache, left sided numbness, left sided weakness, numbness, paresthesia, pre-existing deficit, right sided numbness, right sided weakness, seizure, speech problems, tingling, tremors, weakness, others Musculoskeletal: denies: back pain, gout, joint pain, joint swelling, muscle pain, muscle stiffness, neck pain, others Integumetry: denies: bruises, change in color, change in hair/nails, dryness, laceration, lesions, lumps, rash, wounds, others Allergic/Immunocompromised: denies: Difficulty Healing, Frequent Infections, Hives, Itching, others Hematologic/Lymphatic: denies: anemia, blood clots, easy bleeding, easy bruising, swollen glands, others Endocrine: denies: excessive hunger, excessive sweating, excessive thirst, excessive urination, flushing, intolerance to cold, intolerance to heat, unexplained weight gain, unexplained weight loss, others Psychiatric: denies: anxiety, bipolar disorder, depression, hopeless, panic disorder, schizophrenia, sleepless, suicidal, others Physical Exam General Appearance: No Apparent Distress, Normal HEENT: Normal ENT Inspection, Pharynx Normal, TMs Normal Neck: Full Range of Motion, Non-Tender, Normal, Normal Inspection Respiratory: Chest Non-Tender, Lungs Clear, No Accessory Muscle Use, No Respiratory Distress, Normal Breath Sounds Cardiovascular: No Edema, No JVD, No Murmur, No Gallop, Normal Peripheral Pulses, Regular Rate/Rhythm Breast Exam: Deferred Gastrointestinal: No Organomegaly, Non Tender, No Pulsatile Mass, Normal Bowel Sounds, Soft Genitalia: Deferred Pelvic: Deferred Rectal: Deferred Extremities: No calf tenderness, Normal capillary refill, Normal inspection, Normal range of motion, Non-tender, No pedal edema Musculoskeletal : Apperance: Normal Neurologic: Alert, 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 Was a procedure done?: No CP Differential Dx Differential Diagnosis: A-fib, A-Flutter, Angina, Heart Failure, PVC's, V-Fib, V-Tach, Other Differential Diagnosis: Angina, Chest Wall Pain, Costochondritis, Esophageal reflux/spasm, Gastritis, Myocardial Infarction X-Ray, Labs, Meds, VS Vital Signs Date Time Temp Pulse Resp B/P (MAP) Pulse Ox O2 Delivery O2 Flow Rate FiO2 10/04/25 21:59 98.4 83 16 111/53 (72) 97 98.4 10/04/25 18:44 97.7 73 18 162/83 96 97.7 10/04/25 18:40 74 Lab Test 10/04/25 19:39 10/04/25 18:52 Range/Units Troponin I High Sensitivity < 3 L < 3 L </=34 ng/L White Blood Count 5.7 # 4.4-10.8 10^3/uL Red Blood Count 4.94 4.0-5.20 10^6/uL Hemoglobin 14.4 12.2-16.2 g/dL Hematocrit 42.8 36.0-46.0 % Mean Corpuscular Volume 86.6 80.0-100.0 fL Mean Corpuscular Hemoglobin 29.1 28.0-32.0 pg Mean Corpuscular Hemoglobin Concent 33.6 32.0-36.0 g/dL Red Cell Distribution Width 15.3 H 11.8-14.3 % Platelet Count 215 140-450 10^3/uL Mean Platelet Volume 8.2 6.9-10.8 fL Neutrophils (%) (Auto) 50.9 37.0-80.0 % Lymphocytes (%) (Auto) 39.2 10.0-50.0 % Monocytes (%) (Auto) 7.5 0.0-12.0 % Eosinophils (%) (Auto) 1.3 0.0-7.0 % Basophils (%) (Auto) 1.1 0.0-2.0 % Neutrophils # (Auto) 2.9 1.6-8.6 10 ^3/uL Lymphocytes # (Auto) 2.2 0.4-5.4 10 ^3/uL Monocytes # (Auto) 0.4 0-1.3 10 ^3/uL Eosinophils # (Auto) 0.1 0-0.8 10 ^3/uL Basophils # (Auto) 0.1 0-0.2 10 ^3/uL Nucleated Red Blood Cells 0.2 % Sodium Level 141 136-145 mmol/L Potassium Level 4.2 3.5-5.1 mmol/L Chloride Level 108 H 98-107 mmol/L Carbon Dioxide Level 24 20-31 mmol/L Anion Gap 9 5-15 Blood Urea Nitrogen 14 9-23 mg/dL Creatinine 1.00 0.550-1.02 mg/dL Glomerular Filtration Rate Calc 59 >90 mL/min BUN/Creatinine Ratio 14.0 10.0-20.0 Serum Glucose 88 74-106 mg/dL Calcium Level 9.3 8.7-10.4 mg/dL Time of 1ST Reevaluation: 20:14 Reevaluation 1ST: Unchanged Patient Education/Counseling: Diagnosis, Treatment Family Education/Counseling: No Family Present SEPSIS Sepsis Screen Date sepsis recognized/suspect: Oct 04, 2025 Time Sepsis recognized/suspect: 1839 Recent Procedure: No On Antibiotic Therapy: No Respiratory Rate >20: No Heart Rate >90: No Temp<36 C (96.8 F) or >38.3 C: No SBP <90 or MAP <65 mmHG: No New Acute Mental Status Change: No Is the patient on CPAP, BIPAP,: No Physician Orders Chest Portable (10/04/25 18:43) Electrocardigram (10/04/25 19:43) Electrocardigram (10/04/25 21:43) Vital Signs Date Time Temp Pulse Resp B/P (MAP) Pulse Ox O2 Delivery O2 Flow Rate FiO2 10/04/25 21:59 98.4 83 16 111/53 (72) 97 98.4 10/04/25 18:44 97.7 73 18 162/83 96 97.7 10/04/25 18:40 74 Laboratory Tests Test 10/04/25 18:52 White Blood Count 5.7 10^3/uL (4.4-10.8) # Departure 1 Departure Time of Disposition: 22:00 Impression: Primary Impression: Chest pain Disposition: 01 HOME / SELF CARE / HOMELESS Condition: Stable Discharged With: Self Critical Care Note Critical Care Time?: No Stability Stability form required: No Heart Score Heart Score: Heart Score Response (Comments) Value History Moderate Suspicious 1 EKG Normal 0 Age >65 2 Risk Factors >3 or Hx ASHD 2 Troponin Normal limit 0 Total 5 I personally scribed for RO EASTON MD ([email or web address]) on 10/04/25 at 20:16. Electronically submitted by Devan Lin ([email or web address]). RO EASTON MD Oct 04, 2025 20:16
[2025-10-04 21:59] VITALS: BP 111/53; PULSE 83; RESP 16; TEMP 98.4; O2SAT 97
== END 2025-10-04 22:03 | disposition home or self-care (01) ==
LOC: ER 18:39 → EDBD 18:39 → ER 22:03
DX: R07.89 Other chest pain (principal); I25.10 Atherosclerotic heart disease of native coronary artery without angina pectoris; I10 Essential (primary) hypertension; F17.210 Nicotine dependence, cigarettes, uncomplicated; Z79.899 Other long term (current) drug therapy; Z86.73 Personal history of transient ischemic attack (TIA), and cerebral infarction without residual deficits; Z88.1 Allergy status to other antibiotic agents; Z88.5 Allergy status to narcotic agent; Z88.6 Allergy status to analgesic agent; Z90.49 Acquired absence of other specified parts of digestive tract; Z90.710 Acquired absence of both cervix and uterus
CPT/HCPCS: 36415; 71045; 80048; 84484; 85025; 93005